=== PATIENT | male | born 1980 | race Hispanic/Latino ===

== ENCOUNTER 2021-04-12 22:56 | Emergency (ER) | payer BC, SELFPAY ==
[2021-04-12 22:57] VITALS: BP 125/83; PULSE 85; RESP 16; TEMP 36.6; O2SAT 85; BMI 33.2
[2021-04-12 23:01] VITALS: BP 125/83; PULSE 85; RESP 16; TEMP 36.6; O2SAT 94
--- NOTE | 2021-04-13 00:15 | RAD_ITS ---
STUDY: X-RAY CHEST REASON FOR EXAM: Male, 40 years old. sob TECHNIQUE: Single AP portable view of the chest. COMPARISON: None. FINDINGS: Ill-defined subpleural groundglass opacities are seen more prominent in the lung bases , may represent atypical pneumonia or viral pneumonia (COVID-19 ?). There is no demonstrated pleural abnormality. Normal size heart. Normal mediastinum and dougie. Normal visualized pulmonary arteries. Normal visualized aortic arch and descending thoracic aorta. Normal visualized thoracic spine. Normal visualized ribs, clavicles, and shoulders. There is no demonstrated abnormality of the visualized soft tissue structures of the upper abdomen. RAD/Chest 1 View (Portable) IMPRESSION: Ill-defined subpleural groundglass opacities are seen more prominent in the lung bases , may represent atypical pneumonia or viral pneumonia (COVID-19 ?). Electronically Signed: Erlin May MD at 1:09 EST Tel , Service support ,
--- NOTE | 2021-04-13 00:16 | EDS_ITS ---
HPI HPI - URI History of Present Illness Chief Complaint: Weakness Informant: patient Onset/Context/Timing Onset: Days Context: Gradual Onset Timing: Continuous Current Severity: Mild Maximum Severity: Mild Associated Symptoms Associated Symptoms: Positive for Nasal Congestion, Myalgias and Diarrhea Narrative Narrative: 40-year-old male no sniffing past medical history. Currently on no meds. Says he was exposed to people with Covid-like symptoms. Now for 10 days has had worsening symptoms. He is now short of breath. Denies any chest pain or hemoptysis. He has had diarrhea no vomiting. He has had alternating fever and chills and diffuse body aches. He has not been Covid tested as of yet. Prior similar symptoms: No Recent Illness/Hospitalization: No ROS ROS ED ROS Narrative Cough. Short of breath. Diarrhea. Fever and chills. Review of Systems ROS Unobtainable: Denies due to encephalopathy Constitutional Constitutional ED: Reports chills and fever(s) Eyes Eyes: Denies change in vision ENT ENT ED: Denies ear pain Cardiovascular Cardiovascular: Denies chest pain Respiratory/Chest Respiratory/Chest: Reports cough and dyspnea Gastrointestinal Gastrointestinal: Reports diarrhea; Denies abdominal pain, nausea or vomiting Genitourinary Genitourinary ED: Denies dysuria Musculoskeletal Musculoskeletal: Reports arthralgias and myalgias Integumentary Denies rash Neurologic Neurologic: Denies headache(s) Psychiatric Psychiatric: Denies depression Endocrine Endocrinology: Denies polyuria Hematologic/Lymphatic Hematologic/Lymphatic: Denies easy bruising Allergic/Immunologic Allergic/Immunologic ED: Denies urticaria PFSH PFSH Medical History no medical history no medical history Home Medications NK 04/12/21 [History Last Taken Unknown] dexamethasone [Decadron] 6 mg PO DAILY 10 Days #10 tab 04/13/21 [Rx Last Taken Unknown] Allergy/AdvReac Type Severity Reaction Status Date / Time No Known Allergies Allergy Verified 04/12/21 22:56 Social History Smoking Status: Never smoker EXAM Physical Exam Narrative Exam Narrative: Middle-age male no acute distress vital signs stable afebrile he has no septic or toxic he is hypoxic with a room air pulse ox of 85% on 3 L is 94%. H EENT exam moist weeks membranes. Neck nontender no JVD. No lymphadenopathy. Lungs clear to auscultation bilaterally. Heart regular rate and rhythm rate about 85 no murmur. Abdomen soft nontender normal bowel sounds no peritoneal signs. Moving all 4 extremities. Nontender. No edema. Back nontender. Skin unremarkable. Neurologic exam normal. Const Vital Signs: 04/12/21 22:57 04/12/21 23:01 04/12/21 23:22 Temperature 97.8 F 97.8 F Temperature Source Temporal Temporal Pulse Rate 85 85 Respiratory Rate 16 16 Respiratory Effort Short of Breath Respiratory Pattern Normal Blood Pressure 125/83 H 125/83 H Blood Pressure Mean 97 97 Pulse Ox 85 94 Oxygen Delivery Method Room Air Nasal Cannula Oxygen Flow Rate (L/min) 3 04/13/21 02:48 04/13/21 03:48 Temperature Temperature Source Pulse Rate 60 88 Respiratory Rate 16 22 H Respiratory Effort Respiratory Pattern Blood Pressure 128/70 H 90/65 Blood Pressure Mean 89 Pulse Ox 91 92 Oxygen Delivery Method Room Air Oxygen Flow Rate (L/min) Positive well nourished and well developed; Negative for cachectic or contractures General Appearance ED: well developed and NAD; Negative for cachectic, contractures, cyanotic, diaphoretic or pallor Nutritional Appearance: Negative for cachectic HEENT Reports moist mucous membranes normocephalic and atraumatic External Ear: external ears normal Eyes PERRL and EOMs intact bilaterally Neck no lymphadenopathy, supple, no meningeal signs and no JVD General: Negative for anterior neck swelling or lymphadenopathy Resp normal respiratory effort and clear to auscultation bilaterally Auscultation: Negative for rales, rhonchi or wheezes Cardio S1 normal heart sound, S2 normal heart sound and no murmurs Rate: regular rate Rhythm: regular rhythm GI non-tender, non-distended and no masses Inspection: Negative for abdominal distention Auscultation: normoactive bowel sounds Palpation: soft; Negative for tender or guarding Back/Spine no CVA tenderness and normal ROM General Back: Negative for CVA tenderness Cervical Spine: Negative for cervical spine tenderness Extremity normal to inspection and full ROM General Extremety ED: Negative for cyanosis or tenderness General Extremity: Negative for cyanosis Neuro oriented x3 Sensorium / Orientation: alert, oriented to person, oriented to place and oriented to time; Negative for orientation impaired, lethargic or stuporous Motor Exam: strength 5/5 throughout Psych mental status grossly normal Mood & Affect: Negative for depressed Skin General Skin Exam: Negative for jaundice or pallor Lesions: no lesions Rashes: no rashes MDM MDM MDM Narrative Medical decision making narrative: 40-year-old male no seen past medical history I clinically suspect he has Covid. Semitreated with IV fluids screening labs, chest x-ray and Covid test. Be given Decadron. And IV fluids. He is hypoxic he will need oxygen whether either admitted or discharged home with it. Repeat exam at 2:07 AM patient doing well and also at 3 AM. He was ambulated off oxygen and his O2 sats stayed 92% or better. He will not require home oxygen. He will be discharged home on Decadron daily. Lab Data Attestation: I reviewed the patient's lab results. Lab results narrative: CBC is normal at 7. Hemoglobin 16. Platelets 312. Electrolytes sodium 135 potassium 3.4 gap 8 normal BUN and creatinine 9 and 1 glucose 129. Patient's initial rapid Covid antigen test was negative. However he has had symptoms for 10 days and clinically I thought he had Covid so we did a PCR Covid test and it came back positive. Consistent with my clinical suspicion. Labs: Laboratory Results - last 24 hr 04/13/21 04/13/21 04/13/21 00:40 00:40 02:45 WBC 7.0 RBC 4.91 Hgb 16.1 Hct 45.4 MCV 92.5 MCH 32.8 H MCHC 35.5 RDW Std Deviation 41.9 RDW Coeff of Karol 12.1 Plt Count 312 MPV 9.6 Immature Gran % (Auto) 0.400 Neut % (Auto) 76.2 H Lymph % (Auto) 15.3 L [place] % (Auto) 8.0 Eos % (Auto) 0.0 Baso % (Auto) 0.1 Absolute Neuts (auto) 5.3 Absolute Lymphs (auto) 1.07 Nucleated RBC % 0 Sodium 135 L Potassium 3.4 L Chloride 95 L Carbon Dioxide 32.0 Anion Gap 8 BUN 9 Creatinine 1.06 Estim Creat Clear Calc 92.64 Est GFR (MDRD) Af Amer 99 Est GFR (MDRD) Non-Af 82 BUN/Creatinine Ratio 8.5 L Glucose 129 H Calcium 8.6 COVID-19 (WAQAR) Positive Radiography Diagnostic Testing: Clinical Impression(s) from Imaging Studies Chest X-Ray 04/13/21 00:15 IMPRESSION: Ill-defined subpleural groundglass opacities are seen more prominent in the lung bases , may represent atypical pneumonia or viral pneumonia (COVID-19 ?). Electronically Signed: Erlin May MD at 1:09 EST Tel , Service support , Chest x-ray, portable, single view interpreted by myself is consistent with bilateral infiltrates consistent with Covid pneumonitis. Normal cardiac silhouette. Discharge Plan Triage Chief Complaint: Weakness ED Provider: Dale Marie Dx/Rx/DC Orders Clinical Impression: Hypoxia, COVID-19 Instructions: Human Coronaviruses Prescriptions: New dexamethasone [Decadron] 6 mg tablet 6 mg PO DAILY 10 Days Qty: 10 RF: 0 No Action NK RF: 0 Primary Care Provider: Phi Domínguez Referrals: Phi Domínguez MD [Primary Care Provider] - 10-14 Days if not better Activity Restrictions/Additional Instructions: Plenty of fluids and rest. Motrin and Tylenol for body aches and fever Follow-up with your doctor if not improving over a week. Return if a lot worse. Decadron daily to decrease inflammation in your lungs. Disposition Disposition: Home, Self Care Discharge Date/Time: 04/13/21 03:49
[2021-04-13] MEDS: Ketorolac 30 MG/ML Syringe IV (00:35)
[2021-04-13] MEDS: dexAMETHasone 4 MG Tablet 6 MG PO (00:36)
[2021-04-13 00:49] LABS: Absolute Lymphocyte Count 1.07 X10^3/uL (0.83-4.51); Absolute Neutrophil Count 5.3 X10^3/uL (2.0-7.7); Basophil# 0.01 X10^3/uL; Basophil% 0.1 % (0-1); Hematocrit 45.4 % (40-54); Hemoglobin 16.1 g/dL (13.0-16.5); Lymphocyte # 1.07 X10^3/ul (0.83-4.51); Lymphocyte % 15.3 % (19-41); Mean Corp Hgb Conc 35.5 g/dL (32-36); Mean Corpuscular Hgb 32.8 pg (27.0-32.0); Mean Corpuscular Volume 92.5 fL (80-94); Mean Platelet Vol. 9.6 fl (6.2-12.0); Monocyte# 0.56 X10^3/uL; NRBC Flagged by Analyzer 0 % (0-5); Neutrophil # 5.32 X10^3/uL (2.7-7.7); Neutrophil % 76.2 % (47-70); Platelet Count 312 K/mm3 (150-450); RBC Distribution Width CV 12.1 % (11.6-14.6); RBC Distribution Width SD 41.9 fl (35.1-43.9); Red Blood Count 4.91 M/mm3 (4.6-6.2)
[2021-04-13 01:05] LABS: Anion Gap 8 (5-15); BUN 9 mg/dL (7-18); BUN/Creat Ratio 8.5 RATIO (10-20); Calcium,Total 8.6 mg/dL (8.5-10.1); Chloride 95 mmol/L (98-107); Creatinine, Serum 1.06 mg/dL (0.70-1.30); EST Glomerular Filtration Rate 82 mL/min (>60); Est Glom Filt Rate - Afr Amer 99 mL/min (>60); Estimated Creatinine Clearance 92.64 ml/min; Glucose 129 mg/dL (74-106); Potassium 3.4 mmol/L (3.5-5.1); Sodium Level 135 mmol/L (136-145)
[2021-04-13 02:48] VITALS: BP 128/70; PULSE 60; RESP 16; O2SAT 91
[2021-04-13 03:06] VITALS: O2SAT 90; O2SAT 92
[2021-04-13 03:44] LABS: Probe Check PASS; Specimen Processing Control PASS
[2021-04-13 03:48] VITALS: BP 90/65; PULSE 88; RESP 22; O2SAT 92
== END 2021-04-13 03:49 | disposition home or self-care (01) ==
PROVIDERS: Emergency Provider Emergency Medicine; PCP Family Medicine
DX: U07.1 COVID-19 (principal); R09.02 Hypoxemia
CPT/HCPCS: 71045; 80048; 85025; 87426; 87635; 96374; 99284; U0005; A4216; U0003

== ENCOUNTER 2021-04-13 22:14 | Inpatient (IN) | payer BC, SELFPAY ==
[2021-04-13 22:16] VITALS: BP 130/84; PULSE 64; RESP 18; TEMP 36.7; O2SAT 76; BMI 32.7
[2021-04-13 22:19] VITALS: BP 130/84; PULSE 65; PULSE 71; RESP 22; TEMP 36.7; O2SAT 90; O2SAT 91
--- NOTE | 2021-04-13 22:56 | EKG12_ITS ---
Test Reason : DYSRHYTHMIA Blood Pressure : / mmHG Vent. Rate : 072 BPM Atrial Rate : 072 BPM P-R Int : 154 ms QRS Dur : 090 ms QT Int : 454 ms P-R-T Axes : 044 -15 008 degrees QTc Int : 497 ms Normal sinus rhythm Prolonged QT Abnormal ECG Confirmed by CAYLA GAMBOA, EDE ([id number]), copy editor LIYA HOLGUIN ([id number]) on 04/15/2021 12:23:45 PM Referred By: ANNABELLA Confirmed By:EDE KULKARNI MD
--- NOTE | 2021-04-13 22:56 | CT_ITS ---
STUDY: CTA CHEST REASON FOR EXAM: Male, 40 years old. Hypoxia RADIATION DOSAGE (If Supplied By Facility): CTDIvol = ( 12.64 ) mGy, DLP = ( 497.40 ) mGycm TECHNIQUE: The examination was performed with the intravenous administration of IV 100mL Isovue-300. Post-processing of the angiographic images was performed, with multiplanar reformation and 3D reconstruction. Individualized dose optimization techniques were used for this CT. COMPARISON: April 13, 2021 FINDINGS: Normal enhancement of the main pulmonary artery and right and left pulmonary arteries. Normal enhancement of the bilateral peripheral pulmonary arteries. There is no demonstrated pulmonary embolism. Normal thoracic aorta and visualized great vessels. There is no demonstrated aortic dissection. Normal heart and pericardium. Normal mediastinum. Normal hilar regions. Normal visualized trachea and bronchi. There are multifocal groundglass opacities throughout the lungs with predominance in the lung periphery and lower lobes. Normal pleura. Normal chest wall structures. Normal osseous structures. Borderline splenomegaly. CT/CTA Chest W/WO Contrast IMPRESSION: Multifocal pneumonia, a pattern typical of Covid pneumonia. No pulmonary embolism. Electronically Signed: Vida Caldwell MD at 0:24 EST Tel , Service support ,
[2021-04-13] MEDS: dexAMETHasone 10 MG/ML Vial IV (23:19)
--- NOTE | 2021-04-13 23:20 | EDS_ITS ---
HPI History of Present Illness Chief Complaint: Shortness of Breath Narrative Narrative: Patient is a 40-year-old male who was seen yesterday secondary to cough and shortness of breath. He has known Covid and is at day 11. He states he is not vaccinated. Yesterday he was worked up and his pulse ox remained stable at rest and with exertion. He was started on Decadron and discharged home. Patient states that today the shortness of breath has worsened where he feels short of breath at rest and severely short of breath with any type of exertion and secondary to his worsening symptoms presents for evaluation. Patient denies any history of lung disorder or need for supplemental oxygen PFSH PFSH Home Medications dexamethasone [Decadron] 6 mg PO DAILY 04/14/21 [History Last Taken Unknown] Allergy/AdvReac Type Severity Reaction Status Date / Time No Known Allergies Allergy Verified 04/13/21 22:16 Social History Smoking Status: Never smoker ROS ROS ED Constitutional Constitutional ED: Denies chills or fever(s) ENT ENT ED: Reports rhinorrhea and sore throat Cardiovascular Cardiovascular: Reports chest pain Respiratory/Chest Respiratory/Chest: Reports cough, dyspnea and sputum Gastrointestinal Gastrointestinal: Denies abdominal pain, diarrhea, nausea or vomiting Genitourinary Genitourinary ED: Denies dysuria Musculoskeletal Musculoskeletal: Reports myalgias Integumentary Denies rash Neurologic Neurologic: Denies headache(s) Hematologic/Lymphatic Hematologic/Lymphatic: Denies easy bleeding or easy bruising EXAM Physical Exam Const Vital Signs: 04/13/21 22:16 04/13/21 22:19 04/13/21 22:59 Temperature 98.1 F 98.1 F Temperature Source Temporal Temporal Pulse Rate 64 71 Respiratory Rate 18 22 H Respiratory Effort Short of Breath Labored Respiratory Depth Shallow Respiratory Pattern Tachypnea Blood Pressure 130/84 H 130/84 H Blood Pressure Mean 99 99 Pulse Ox 76 91 Oxygen Delivery Method Room Air Nasal Cannula Oxygen Flow Rate (L/min) 6 04/13/21 23:53 04/14/21 00:11 Temperature 97.7 F L Temperature Source Temporal Pulse Rate 67 77 Respiratory Rate 23 H 20 H Respiratory Effort Respiratory Depth Respiratory Pattern Blood Pressure 128/77 H Blood Pressure Mean 94 Pulse Ox 94 92 Oxygen Delivery Method High Flow High Flow Oxygen Flow Rate (L/min) 10 10 Positive well nourished and well developed General Appearance ED: well developed HEENT Reports moist mucous membranes HEENT Narrative: No tongue or lip swelling no oral lesions no airway edema or compromise Eyes PERRL and EOMs intact bilaterally Neck supple and no JVD Neck Narrative: Positive anterior cervical lymphadenopathy Resp Resp Narrative: Breath sounds are diminished throughout with diffuse rhonchi in the bilateral bases Cardio regular rate and regular rhythm GI normal to inspection, nondistended, normoactive bowel sounds, non-tender, non- distended and no masses GI Narrative: No voluntary guarding or rigidity no pulsatile mass Auscultation: normoactive bowel sounds Palpation: soft Extremity normal to inspection Extremity Narrative: No asymmetric edema no pitting edema negative Homans' sign bilaterally Neuro oriented x3 and CN's II-XII intact bilaterally Sensorium / Orientation: alert Motor Exam: strength 5/5 throughout Psych mental status grossly normal Skin no rashes or lesions noted MDM MDM MDM Narrative Medical decision making narrative: Patient presented to the ER satting 75% on room air when he walked back from the waiting room. This is consistent with his report of shortness of breath. He is 11 days into his Covid and there is concern that this shortness of breath could be related to Covid pneumonia versus pulmonary embolus so a basic work-up with CTA was added. Blood work revealed no clinically significant findings and CTA revealed no PE but did show Covid pneumonia. The patient pulse ox dropped while on 6 L nasal cannula so therefore was transitioned to 10 L of high flow nasal cannula oxygen. While on this his pulse ox did improve to 92 to 93%. At this time he is requiring a high value of oxygen to keep his pulse ox greater than 90% and as he has no need for supplemental oxygen he does classify as acute respiratory failure with hypoxia. Therefore he will be admitted to the hospital for continued oxygen therapy and to monitor his status for secondary to his Covid pneumonia. Lab Data Attestation: I reviewed the patient's lab results. Labs: Laboratory Results - last 24 hr 04/13/21 04/13/21 04/13/21 22:54 22:54 22:54 WBC 7.0 RBC 4.94 Hgb 16.3 Hct 45.3 MCV 91.7 MCH 33.0 H MCHC 36.0 RDW Std Deviation 40.5 RDW Coeff of Karol 12.0 Plt Count 377 MPV 9.8 Immature Gran % (Auto) 1.000 H Neut % (Auto) 78.8 H Lymph % (Auto) 9.6 L [place] % (Auto) 10.5 H Eos % (Auto) 0.0 Baso % (Auto) 0.1 Absolute Neuts (auto) 5.5 Absolute Lymphs (auto) 0.67 L Nucleated RBC % 0 Differential Comment SCANNED Atypical Lymphocytes RARE PT 12.4 INR 1.0 APTT 36.6 H Sodium 136 Potassium 3.5 Chloride 98 Carbon Dioxide 31.0 Anion Gap 7 BUN 12 Creatinine 0.79 Estim Creat Clear Calc 124.30 Est GFR (MDRD) Af Amer 139 Est GFR (MDRD) Non-Af 115 BUN/Creatinine Ratio 15.2 Glucose 148 H Calcium 8.9 Magnesium 2.6 Troponin I High Sens 5 Radiography Diagnostic Testing: Clinical Impression(s) from Imaging Studies Chest CTA 04/13/21 22:56 IMPRESSION: Multifocal pneumonia, a pattern typical of Covid pneumonia. No pulmonary embolism. Electronically Signed: Vida Caldwell MD at 0:24 EST Tel , Service support , Critical Care Time Critical Care Time: Yes Critical care time (excluding procedures): - (Please note critical care time of 33 minutes) Discharge Plan Triage Chief Complaint: Shortness of Breath ED Provider: Tang Sauceda Dx/Rx/DC Orders Clinical Impression: Acute respiratory failure with hypoxia, Pneumonia due to 2019 novel coronavirus Primary Care Provider: Phi Domínguez Disposition Disposition: Acute Care Hospital [facility]
[2021-04-13 23:21] LABS: Prothrombin Time (Protime)PT. 12.4 SECONDS (11.7-14.9)
[2021-04-13 23:22] LABS: Partial Thromboplast Time 36.6 Seconds (24.1-36.2)
[2021-04-13 23:29] LABS: Absolute Lymphocyte Count 0.67 X10^3/uL (0.83-4.51); Absolute Neutrophil Count 5.5 X10^3/uL (2.0-7.7); Basophil# 0.01 X10^3/uL; Basophil% 0.1 % (0-1); Hematocrit 45.3 % (40-54); Hemoglobin 16.3 g/dL (13.0-16.5); Lymphocyte # 0.67 X10^3/ul (0.83-4.51); Lymphocyte % 9.6 % (19-41); Mean Corpuscular Volume 91.7 fL (80-94); Mean Platelet Vol. 9.8 fl (6.2-12.0); Monocyte# 0.73 X10^3/uL; Monocyte% 10.5 % (0-10); NRBC Flagged by Analyzer 0 % (0-5); Neutrophil # 5.49 X10^3/uL (2.7-7.7); Neutrophil % 78.8 % (47-70); POSITIVE MORPHOLOGY YES; Platelet Count 377 K/mm3 (150-450); RBC Distribution Width SD 40.5 fl (35.1-43.9); Red Blood Count 4.94 M/mm3 (4.6-6.2)
[2021-04-13 23:32] LABS: Anion Gap 7 (5-15); BUN 12 mg/dL (7-18); BUN/Creat Ratio 15.2 RATIO (10-20); Calcium,Total 8.9 mg/dL (8.5-10.1); Chloride 98 mmol/L (98-107); Creatinine, Serum 0.79 mg/dL (0.70-1.30); EST Glomerular Filtration Rate 115 mL/min (>60); Est Glom Filt Rate - Afr Amer 139 mL/min (>60); Glucose 148 mg/dL (74-106); Magnesium 2.6 mg/dL (1.6-2.6); Potassium 3.5 mmol/L (3.5-5.1); Sodium Level 136 mmol/L (136-145); Troponin-I HS 5 pg/mL (3.0-78.0)
[2021-04-13 23:39] LABS: Differential Indicated SCAN CRITERIA MET
[2021-04-13 23:53] VITALS: BP 128/77; PULSE 67; RESP 23; TEMP 36.5; O2SAT 94
[2021-04-13 23:57] LABS: Atypical Lymphocyte RARE %; Differential Comment SCANNED
[2021-04-14] VITALS (14 sets, daily range): BP systolic 103–133; BP diastolic 52–97; PULSE 50–77; RESP 14–22; TEMP 36–36.8; O2SAT 89–97; BMI 31.8
--- NOTE | 2021-04-14 00:56 | PCM.HP.STD ---
HPI - General General Date of Admission: 04/14/21 Date of Service: 04/14/21 Chief Complaint: Shortness of breath HPI Narrative WARREN MATIAS, is a 40 M who presents at the emergency department with progressively worsening shortness of breath. Patient reports a Covid-like symptoms started 11-day before presentation. On the 10th day of his Covid-like symptoms he was at the emergency department and was prescribed a Decadron. He returned the next day with progressively worsening symptoms. He reported that previously had fever and chills which has now resolved. He reports a wet cough. He reports fatigue and weakness. Reportedly when he woke into the emergency department his oxygen saturation on room air was 75%. He was placed on 6 L high flow oxygen but had to be transitioned to 10 L high flow oxygen in ED and even with that his oxygen saturation was between 90 to 92%. [facility] Medical History no medical history no medical history Home Medications dexamethasone [Decadron] 6 mg PO DAILY 04/14/21 [History Last Taken Unknown] Allergy/AdvReac Type Severity Reaction Status Date / Time No Known Allergies Allergy Verified 04/13/21 22:16 Family History adopted adopted Surgical History H/O knee surgery Social History Smoking Status: Never smoker ROS ROS Narrative Constitutional: Denies fever, chills, fatigue, anorexia and change in weight Eyes: Denies blurry vision, change in eye color, change in vision, discharge from eye(s), double vision, erythema, eye pain, loss of vision or other HEENT: Denies abnormal hearing, dysphagia, ear pain, epistaxis, headache(s), hearing loss, nasal congestion, nasal discharge, post nasal drip, sinus pressure, sore throat or other Cardiovascular: Denies chest pain or palpitations. Denies dyspnea on exertion, orthopnea and paroxysmal nocturnal dyspnea Respiratory/Chest: Reports wet cough. Reports SOB. Gastrointestinal: Reports abdominal muscle pain that he attributes to cough, coffee ground emesis, constipation, diarrhea, dyspepsia, hematemesis, hematochezia, loose stools, melena, nausea, vomiting or other Genitourinary: Denies burning urination, difficulty urinating, dysuria, hematuria, nocturia, urinary frequency, urinary hesitancy, urinary incontinence, urinary urgency or other Musculoskeletal: Denies arthralgias, back pain, joint pain, joint stiffness, joint swelling, myalgias, neck pain or other Neurologic: Denies abnormal gait, abnormal speech, confusion, disequilibrium, dizziness, focal weakness, headache(s), numbness, paresthesias, seizure-like activity, seizures, syncope, tingling, tremor(s) or other Psychiatric: Denies anxiety, depression, homicidal ideation, suicidal ideation or other Endocrinology: Denies change in body appearance, cold intolerance, excessive sweating, heat intolerance, polydipsia, polyuria or other Hematologic/Lymphatic: Denies anemia, easy bleeding, easy bruising, lymphadenopathy or other Integumentary: Denies rashes Allergic/Immunologic: Denies rhinitis, hives, eczema, asthma or other Vital Signs Vital Signs Vital Signs: 04/13/21 22:16 04/13/21 22:19 04/13/21 22:59 Temperature 98.1 F 98.1 F Temperature Source Temporal Temporal Pulse Rate 64 71 Respiratory Rate 18 22 H Respiratory Effort Short of Breath Labored Respiratory Depth Shallow Respiratory Pattern Tachypnea Blood Pressure 130/84 H 130/84 H Blood Pressure Mean 99 99 Pulse Ox 76 91 Oxygen Delivery Method Room Air Nasal Cannula Oxygen Flow Rate (L/min) 6 04/13/21 23:53 04/14/21 00:11 Temperature 97.7 F L Temperature Source Temporal Pulse Rate 67 77 Respiratory Rate 23 H 20 H Respiratory Effort Respiratory Depth Respiratory Pattern Blood Pressure 128/77 H Blood Pressure Mean 94 Pulse Ox 94 92 Oxygen Delivery Method High Flow High Flow Oxygen Flow Rate (L/min) 10 10 Weight Weight: 102.058 kg Body Mass Index (BMI) 32.7 Physical Exam Narrative Physical exam: General: Well-nourished, well-developed. Head: Normocephalic, atraumatic, no tenderness Eyes: PERRLA, EOMI ENT, no trauma, moist mucous membranes, no rhinorrhea Neck: Nontender, full range of motion, no spinal tenderness, deformities, step-off CVS: Regular rate and rhythm. S1-S2 present. No murmur, gallop or rub. Respiratory : Rales bilaterally, chest wall nontender, no wheezing Abdomen: Soft, nontender, nondistended, normal bowel sounds, no masses : Deferred Back: Nontender, no CVA tenderness, no midline spinal tenderness, deformities, step-offs Extremities: Nontender full range of motion, no trauma Skin: Normal color, no trauma, abrasions Neuro: Alert, oriented, cranial nerves II through XII grossly intact. Psychiatry: Normal mood. Normal affect. Not depressed. Not anxious. Results Lab / Micro Data Result Diagrams: 04/13/21 22:54 04/13/21 22:54 Labs: Laboratory Results - last 24 hr 04/13/21 22:54: WBC 7.0, RBC 4.94, Hgb 16.3, Hct 45.3, MCV 91.7, MCH 33.0 H, MCHC 36.0, RDW Std Deviation 40.5, RDW Coeff of Karol 12.0, Plt Count 377, MPV 9.8, Immature Gran % (Auto) 1.000 H, Neut % (Auto) 78.8 H, Lymph % (Auto) 9.6 L, [place] % (Auto) 10.5 H, Eos % (Auto) 0.0, Baso % (Auto) 0.1, Absolute Neuts (auto) 5.5, Absolute Lymphs (auto) 0.67 L, Nucleated RBC % 0, Differential Comment SCANNED, Atypical Lymphocytes RARE 04/13/21 22:54: PT 12.4, INR 1.0, APTT 36.6 H 04/13/21 22:54: Sodium 136, Potassium 3.5, Chloride 98, Carbon Dioxide 31.0, Anion Gap 7, BUN 12, Creatinine 0.79, Estim Creat Clear Calc 124.30, Est GFR (MDRD) Af Amer 139, Est GFR (MDRD) Non-Af 115, BUN/Creatinine Ratio 15.2, Glucose 148 H, Calcium 8.9, Magnesium 2.6, Troponin I High Sens 5 Radiology Impression Chest CTA 04/13/21 22:56 IMPRESSION: Multifocal pneumonia, a pattern typical of Covid pneumonia. No pulmonary embolism. Electronically Signed: Vida Caldwell MD at 0:24 EST Tel , Service support , Assessment & Plan Assessment/Plan (1) Acute respiratory failure with hypoxia: (2) Pneumonia due to 2019 novel coronavirus: PLAN: Acute hypoxemic respiratory failure secondary to SARS- COV 2 documented oxygen saturation was 76% on room air. Continue high flow oxygen stat at the emergency department. Review of record showed a positive COVID-19 test on 04/13/2021 Actual chest x-ray image and CTA chest was independently interpreted. I agree with radiologist interpretation of multifocal pneumonia, Covid patent. No pulmonary embolism or acute dissection. Emergent department labs reviewed showed normal white counts but with bandemia of 1%; neutrophilia; lymphopenia and monocytosis. Procalcitonin was ordered. Decadron ordered Tylenol for fever Mucinex ordered Infectious disease consult. Elevated blood pressure diagnosed hypertension Noted to have elevated blood pressure. Trend blood pressures DVT prophylaxis Subcutaneous Lovenox ordered. Charges/Coding Visit Charges Inpatient E&M: 19505 Init Hosp L3
[2021-04-14] MEDS: guaiFENesin 1,200 MG Tablet 1200 MG PO ×3 (02:36→20:34)
[2021-04-14 02:40] LABS: Procalcitonin 0.12 ng/mL (0.00-0.09)
[2021-04-14 06:56] LABS: Absolute Lymphocyte Count 0.71 X10^3/uL (0.83-4.51); Absolute Neutrophil Count 6.5 X10^3/uL (2.0-7.7); Basophil# 0.02 X10^3/uL; Basophil% 0.3 % (0-1); Hematocrit 43.8 % (40-54); Hemoglobin 15.3 g/dL (13.0-16.5); Lymphocyte # 0.71 X10^3/ul (0.83-4.51); Mean Corp Hgb Conc 34.9 g/dL (32-36); Mean Corpuscular Hgb 32.5 pg (27.0-32.0); Mean Platelet Vol. 9.8 fl (6.2-12.0); Monocyte# 0.68 X10^3/uL; Monocyte% 8.6 % (0-10); NRBC Flagged by Analyzer 0 % (0-5); Neutrophil # 6.48 X10^3/uL (2.7-7.7); Neutrophil % 81.8 % (47-70); Platelet Count 417 K/mm3 (150-450); RBC Distribution Width CV 11.9 % (11.6-14.6); RBC Distribution Width SD 41.1 fl (35.1-43.9); Red Blood Count 4.71 M/mm3 (4.6-6.2); White Blood Count 7.9 K/mm3 (4.4-11.0)
[2021-04-14 07:38] LABS: ALB/GLOB Ratio 0.6 RATIO (0.9-2.4); AST(SGOT) 117 U/L (15-37); Alanine Aminotransfer ALT/SGPT 82 U/L (16-61); Albumin, Serum 2.7 g/dL (3.2-5.0); Alkaline Phosphatase 74 U/L (45-117); Anion Gap 11 (5-15); BUN 12 mg/dL (7-18); BUN/Creat Ratio 15.5 RATIO (10-20); Calcium,Total 8.6 mg/dL (8.5-10.1); Chloride 100 mmol/L (98-107); Creatinine, Serum 0.78 mg/dL (0.70-1.30); EST Glomerular Filtration Rate 118 mL/min (>60); Est Glom Filt Rate - Afr Amer 142 mL/min (>60); Estimated Creatinine Clearance 125.89 ml/min; Globulin 4.3 g/dL (2.2-4.2); Glucose 150 mg/dL (74-106); Potassium 3.4 mmol/L (3.5-5.1); Sodium Level 137 mmol/L (136-145)
[2021-04-14] MEDS: dexAMETHasone 4 MG Tablet 6 MG PO (08:46)
[2021-04-14] MEDS: Enoxaparin 30 MG/0.3 ML Syringe SC ×2 (08:47→20:32)
--- NOTE | 2021-04-14 11:34 | CASEMGMT ---
Pt states to call about preference for DME company and this KIKI MEDINA placed call to and she states no preference for DME company. states pt is not vaccinated. states she is COVID positive but speaks in full sentences and states no concerns at this time. [place] [employer]
--- NOTE | 2021-04-14 12:17 | CASEMGMT ---
RN CM Assessment Introduced role of RN CM to patient.? Patient is alert, oriented and able?to participate in RN CM Assessment. ?Care providers, pharmacy, and demographics verified. Admit Dx: Acute Hypoxemic Resp Failure s/t Covid Re-Admit: No Barriers/Issues: None. Patient -Covid positive but well and can care for their 3 children. 2 of the children were ill but not tested. Patient works from home. States was tested for Covid here at [facility] PCP: Phi Domínguez Specialists: None Preferred Pharmacy: [facility] Insurance: [employer] Benefit:?Yes LNOK: Carmen Salas LW/HPOA: None, declines offered information or completion on this admission. Informed can return as an outpatient to complete with social service dept at a later time if choses. Living Arrangements:?Lives with and 3 children, couple steps to enter home. Can use separate bathroom and stay in separate room from children. ADL?s: Independent with ambulation and ADLs Transportation: Both patient and drive, likely will transport upon DC. DME: None. Does have a thermometer. HHC: None SNF: None Goal: Home and not sure of preference for DME should home oxygen be needed and would need to s/w his . All list for DME, HH, SNF left at bedside. called by PERNELL Goins states no preference of DME company and one that is local. In Network DME: [facility], Ale, [facility], Lisa, [employer] [employer]. DC PLAN: Home with possible Home O2-no preference on agency. PERNELL Miranda
[2021-04-14 13:08] LABS: CRP 9.31 mg/L (0.0-3.0)
[2021-04-14 13:19] LABS: BNP,B-Type NATRIURETIC PEPTIDE 17.2 pg/mL (0-100)
[2021-04-14 13:53] LABS: D-Dimer Quantitative (DVT/PE) 0.37 FEU/ug/m (0.27-0.49)
--- NOTE | 2021-04-14 14:41 | PN.HOSP_ITS ---
Subjective Subjective placed on airvo due to hypoxia. Objective Data Objective Data Vital Signs: Vital Signs Temp Pulse Resp BP Pulse Ox 36.0 C L 58 L 18 112/64 97 04/14/21 11:28 04/14/21 11:28 04/14/21 11:28 04/14/21 11:28 04/14/21 11:28 Oxygen Flow Rate (L/min) 50 Oxygen Delivery Method Airvo Weight: 97.9 kg Body Mass Index (BMI) 31.8 Intake & Output: Intake and Output for Last 24 Hours 04/12/21 04/13/21 04/14/21 23:59 23:59 23:59 Intake Total 240 / 240 Balance 240 / 240 Lab / Micro Data Result Diagrams: 04/14/21 06:16 04/14/21 06:16 Labs: Laboratory Results - last 24 hr 04/13/21 22:54: WBC 7.0, RBC 4.94, Hgb 16.3, Hct 45.3, MCV 91.7, MCH 33.0 H, MCHC 36.0, RDW Std Deviation 40.5, RDW Coeff of Karol 12.0, Plt Count 377, MPV 9.8, Immature Gran % (Auto) 1.000 H, Neut % (Auto) 78.8 H, Lymph % (Auto) 9.6 L, [place] % (Auto) 10.5 H, Eos % (Auto) 0.0, Baso % (Auto) 0.1, Absolute Neuts (auto) 5.5, Absolute Lymphs (auto) 0.67 L, Nucleated RBC % 0, Differential Comment SCANNED, Atypical Lymphocytes RARE 04/13/21 22:54: PT 12.4, INR 1.0, APTT 36.6 H 04/13/21 22:54: Sodium 136, Potassium 3.5, Chloride 98, Carbon Dioxide 31.0, Anion Gap 7, BUN 12, Creatinine 0.79, Estim Creat Clear Calc 124.30, Est GFR (MDRD) Af Amer 139, Est GFR (MDRD) Non-Af 115, BUN/Creatinine Ratio 15.2, Gluc ose 148 H, Calcium 8.9, Magnesium 2.6, Troponin I High Sens 5 04/13/21 22:54: Procalcitonin 0.12 H 04/14/21 06:16: WBC 7.9, RBC 4.71, Hgb 15.3, Hct 43.8, MCV 93.0, MCH 32.5 H, MCHC 34.9, RDW Std Deviation 41.1, RDW Coeff of Karol 11.9, Plt Count 417, MPV 9.8, Immature Gran % (Auto) 0.300, Neut % (Auto) 81.8 H, Lymph % (Auto) 9.0 L, Clay % (Auto) 8.6, Eos % (Auto) 0.0, Baso % (Auto) 0.3, Absolute Neuts (auto) 6.5, Absolute Lymphs (auto) 0.71 L, Nucleated RBC % 0 04/14/21 06:16: Sodium 137, Potassium 3.4 L, Chloride 100, Carbon Dioxide 26.0, Anion Gap 11, BUN 12, Creatinine 0.78, Estim Creat Clear Calc 125.89, Est GFR (MDRD) Af Amer 142, Est GFR (MDRD) Non-Af 118, BUN/Creatinine Ratio 15.5, Glucose 150 H, Calcium 8.6, Total Bilirubin 0.60, AST 117 H, ALT 82 H, Alkaline Phosphatase 74, Total Protein 7.0, Albumin 2.7 L, Globulin 4.3 H, Albumin/Globu michael Ratio 0.6 L 04/14/21 06:16: C-React Prot Ext Range 9.31 H 04/14/21 06:16: B-Natriuretic Peptide 17.2 04/14/21 13:09: D-Dimer Quant (PE/DVT) 0.37 Radiography Diagnostic Testing: Radiology Impression Chest CTA 04/13/21 22:56 IMPRESSION: Multifocal pneumonia, a pattern typical of Covid pneumonia. No pulmonary embolism. Electronically Signed: Vida Caldwell MD at 0:24 EST Tel , Service support , Physical Exam Const alert and no apparent distress Resp normal respiratory effort and no retractions Resp Narrative: coarse breath sounds. Cardio regular rate, regular rhythm, S1 normal heart sound and S2 normal heart sound GI normal to inspection, nondistended, normoactive bowel sounds, soft to palpation, non-tender and non-distended Assessment & Plan Assessment/Plan (1) Acute respiratory failure with hypoxia: (2) Pneumonia due to 2019 novel coronavirus: PLAN: 1. acute hypoxic respiratory failure 2/2 covid 19 pneumonia worsening overnight and this AM. Now on Airvo could continue to worsen encouraged IS and flutter valve. 2. Acute COVID 19 pneumonia unvaccinated on set 04/04. ID consult to see if candidate for baricitinib too late for remdesivir continue dexamethasone. 3. VTE prophylaxis: LMWH. Charges/Coding Visit Charges Inpatient E&M: 37373 Subs Hosp L2
--- NOTE | 2021-04-14 15:19 | NURSING ---
, Carmen, called in for update. update provided. Carmen states that Dr bruce reached out to her to see if they wanted to do barcitinib or not. Carmen states that she would like to go forward with it. Notified Dr Salgado.
--- NOTE | 2021-04-14 18:59 | CON.PCM.ID_ITS ---
Assessment & Plan Assessment/Plan (1) COVID-19: PLAN: Sx started 04/03. Unvaccinated. Isolate until 04/22. Recommend vaccine after discharge but he is skeptical. On dex. Reviewed EUA and risks/benefits baricitinib with him and his . They want to think about; emphasized the short window of opportunity for its use. Will check basic labs. Will follow, thank you (2) Acute respiratory failure with hypoxia: HPI Consult Data Date of Consult: 04/14/21 HPI Narrative HPI Narrative: WARREN MAITAS, is a 40 M who presented 04/14 with sx since 04/03. C/o headache, fatigue, fever, chills, loss of appetite, n/v/d, change in taste and smell. also sick, kids at home are ok. Unvaccinated. Came to ED, admitted on dex. Now worsening O2, on airvo. Feeling better. Full ROS performed and neg except as noted above. PFSH Medical History no medical history Home Medications dexamethasone [Decadron] 6 mg PO DAILY 04/14/21 [History Last Taken Unknown] Allergy/AdvReac Type Severity Reaction Status Date / Time No Known Allergies Allergy Verified 04/13/21 22:16 Family History adopted Surgical History H/O knee surgery Social History Smoking Status: Never smoker Physical Exam Const alert, oriented x3 and no apparent distress General Appearance: cooperative Exam Limitations: no limitations HEENT normocephalic and head/scalp atraumatic Eyes PERRL and EOMs intact bilaterally Neck supple and No nodes Resp Auscultation: diminished lung sounds Cardio regular rate and regular rhythm GI normal to inspection, nondistended, normoactive bowel sounds Extremity no clubbing, cyanosis or edema Skin no rashes or lesions noted Neuro CN's II-XII intact bilaterally Medical Records Data Medical Nutrition Assessment Dietitian: Malnutrition Criteria Met Start: 04/14/21 15:12 Freq: Status: Active Protocol: Document 04/14/21 15:12 RMA (Rec: 04/14/21 15:12 RMA [id number]) Nutrition Malnutrition Evidence of Malnutrition Exists Yes Malnutrition (severe): Acute Illness/Injury Evidenced By Suboptimal Energy Intake ( Severe),Weight Loss (Severe) Clinical Problem Acute Disease or Injury Related Malnutrition Etiology Severe protein-calorie malnutrition in the context of acute illness related to inadequate oral intake and altered GI function/diarrhea Signs/Symptoms as evidenced by wt loss~4% x 10-12 days and PO meeting less than 50% estimated nutrition needs x 10 days Status Active Problem Recommendation Dietitian Recommendations/Changes Regular/no added salt diet Will add strawberry milkshake with whole milk BID at lunch and dinner. Lab / Micro Data Result Diagrams: 04/14/21 06:16 04/14/21 06:16 Labs: Laboratory Results - last 24 hr 04/13/21 22:54: WBC 7.0, RBC 4.94, Hgb 16.3, Hct 45.3, MCV 91.7, MCH 33.0 H, MCHC 36.0, RDW Std Deviation 40.5, RDW Coeff of Karol 12.0, Plt Count 377, MPV 9.8, Immature Gran % (Auto) 1.000 H, Neut % (Auto) 78.8 H, Lymph % (Auto) 9.6 L, [place] % (Auto) 10.5 H, Eos % (Auto) 0.0, Baso % (Auto) 0.1, Absolute Neuts (auto) 5.5, Absolute Lymphs (auto) 0.67 L, Nucleated RBC % 0, Differential Comment SCANNED, Atypical Lymphocytes RARE 04/13/21 22:54: PT 12.4, INR 1.0, APTT 36.6 H 04/13/21 22:54: Sodium 136, Potassium 3.5, Chloride 98, Carbon Dioxide 31.0, Anion Gap 7, BUN 12, Creatinine 0.79, Estim Creat Clear Calc 124.30, Est GFR (MDRD) Af Amer 139, Est GFR (MDRD) Non-Af 115, BUN/Creatinine Ratio 15.2, Glucose 148 H, Calcium 8.9, Magnesium 2.6, Troponin I High Sens 5 04/13/21 22:54: Procalcitonin 0.12 H 04/14/21 06:16: WBC 7.9, RBC 4.71, Hgb 15.3, Hct 43.8, MCV 93.0, MCH 32.5 H, MCHC 34.9, RDW Std Deviation 41.1, RDW Coeff of Karol 11.9, Plt Count 417, MPV 9.8, Immature Gran % (Auto) 0.300, Neut % (Auto) 81.8 H, Lymph % (Auto) 9.0 L, [place] % (Auto) 8.6, Eos % (Auto) 0.0, Baso % (Auto) 0.3, Absolute Neuts (auto) 6.5, Absolute Lymphs (auto) 0.71 L, Nucleated RBC % 0 04/14/21 06:16: Sodium 137, Potassium 3.4 L, Chloride 100, Carbon Dioxide 26.0, Anion Gap 11, BUN 12, Creatinine 0.78, Estim Creat Clear Calc 125.89, Est GFR (MDRD) Af Amer 142, Est GFR (MDRD) Non-Af 118, BUN/Creatinine Ratio 15.5, Glucose 150 H, Calcium 8.6, Total Bilirubin 0.60, AST 117 H, ALT 82 H, Alkaline Phosphatase 74, Total Protein 7.0, Albumin 2.7 L, Globulin 4.3 H, Albumin/Globulin Ratio 0.6 L 04/14/21 06:16: C-React Prot Ext Range 9.31 H 04/14/21 06:16: B-Natriuretic Peptide 17.2 04/14/21 13:09: D-Dimer Quant (PE/DVT) 0.37 Radiology Impression Chest CTA 04/13/21 22:56 IMPRESSION: Multifocal pneumonia, a pattern typical of Covid pneumonia. No pulmonary embolism. Electronically Signed: Vida Caldwell MD at 0:24 EST Tel , Service support ,
[2021-04-15] VITALS (15 sets, daily range): BP systolic 99–123; BP diastolic 61–80; PULSE 46–65; RESP 18–20; TEMP 36–36.4; O2SAT 92–96
[2021-04-15 07:16] LABS: ALB/GLOB Ratio 0.7 RATIO (0.9-2.4); AST(SGOT) 224 U/L (15-37); Alanine Aminotransfer ALT/SGPT 215 U/L (16-61); Albumin, Serum 2.7 g/dL (3.2-5.0); Alkaline Phosphatase 86 U/L (45-117); Anion Gap 5 (5-15); BUN 17 mg/dL (7-18); BUN/Creat Ratio 21.3 RATIO (10-20); Calcium,Total 8.6 mg/dL (8.5-10.1); Chloride 102 mmol/L (98-107); EST Glomerular Filtration Rate 114 mL/min (>60); Est Glom Filt Rate - Afr Amer 138 mL/min (>60); Estimated Creatinine Clearance 122.74 ml/min; Globulin 4.1 g/dL (2.2-4.2); Glucose 119 mg/dL (74-106); Potassium 3.6 mmol/L (3.5-5.1); Protein, Total 6.8 g/dL (6.4-8.2); Sodium Level 138 mmol/L (136-145)
[2021-04-15] MEDS: dexAMETHasone 4 MG Tablet 6 MG PO (08:54)
[2021-04-15] MEDS: guaiFENesin 1,200 MG Tablet 1200 MG PO ×2 (08:54→21:27)
[2021-04-15] MEDS: Enoxaparin 30 MG/0.3 ML Syringe SC ×2 (08:55→21:27)
--- NOTE | 2021-04-15 10:53 | PCM.PN.ID ---
Physical Exam Narrative Feeling about the same, but now coughing up a lot of yellow sputum. No fever, no n/v/d. Const alert and no apparent distress General Appearance: cooperative Resp Auscultation: diminished lung sounds Cardio regular rate and regular rhythm GI normal to inspection, nondistended, normoactive bowel sounds Skin no rashes or lesions noted ID ID: Route of nutrition/ use of supplements: [] Nutritional Intake: [] IV Site: [] Taveras Catheter: [] Assessment & Plan Assessment/Plan (1) COVID-19: PLAN: Sx started 04/03. Unvaccinated. Isolate until 04/22. Recommend vaccine after discharge but he is skeptical. On dex. O2 stable today on airvo. With rising ALT, will not do baricitinib. Producing yellow sputum, will check sputum cx and start ceftriaxone empirically. Will follow (2) Acute respiratory failure with hypoxia:
--- NOTE | 2021-04-15 17:08 | PCM.PN.HOSP ---
Subjective Subjective Feeling better and oxygen has been able to be weaned down. Feeling better. Objective Data Objective Data Vital Signs: Vital Signs Temp Pulse Resp BP Pulse Ox 36.2 C L 56 L 18 115/66 95 04/15/21 16:59 04/15/21 16:59 04/15/21 16:59 04/15/21 16:59 04/15/21 16:59 Oxygen Flow Rate (L/min) 4 Oxygen Delivery Method Nasal Cannula Weight: 97.9 kg Body Mass Index (BMI) 31.8 Intake & Output: Intake and Output for Last 24 Hours 04/13/21 04/14/21 04/15/21 23:59 23:59 23:59 Intake Total 1320 / 1320 770 / 770 Output Total 650 / 650 550 / 550 Balance 670 / 670 220 / 220 Medical Nutrition Assessment Dietitian: Malnutrition Criteria Met Start: 04/14/21 15:12 Freq: Status: Active Protocol: Document 04/14/21 15:12 RMA (Rec: 04/14/21 15:12 RMA [id number]) Nutrition Malnutrition Evidence of Malnutrition Exists Yes Malnutrition (severe): Acute Illness/Injury Evidenced By Suboptimal Energy Intake ( Severe),Weight Loss (Severe) Clinical Problem Acute Disease or Injury Related Malnutrition Etiology Severe protein-calorie malnutrition in the context of acute illness related to inadequate oral intake and altered GI function/diarrhea Signs/Symptoms as evidenced by wt loss~4% x 10-12 days and PO meeting less than 50% estimated nutrition needs x 10 days Status Active Problem Recommendation Dietitian Recommendations/Changes Regular/no added salt diet Will add strawberry milkshake with whole milk BID at lunch and dinner. Lab / Micro Data Result Diagrams: 04/14/21 06:16 04/15/21 06:34 Labs: Laboratory Results - last 24 hr 04/15/21 06:34: Sodium 138, Potassium 3.6, Chloride 102, Carbon Dioxide 31.0, Anion Gap 5, BUN 17, Creatinine 0.80, Estim Creat Clear Calc 122.74, Est GFR (MDRD) Af Amer 138, Est GFR (MDRD) Non-Af 114, BUN/Creatinine Ratio 21.3 H, Glucose 119 H, Calcium 8.6, Total Bilirubin 0.60, AST 224 H, ALT 215 H, Alkaline Phosphatase 86, Total Protein 6.8, Albumin 2.7 L, Globulin 4.1, Albumin/Globulin Ratio 0.7 L Micro: Microbiology 04/15/21 13:00 Sputum, Expectorated/Coughed Gram Stain - Final Physical Exam Const alert and no apparent distress HEENT head/scalp atraumatic and moist oral mucous membranes Head and Scalp: normocephalic Eyes PERRL Resp normal respiratory effort, no retractions, no use of accessory muscles and clear to auscultation bilaterally Cardio regular rate, regular rhythm, S1 normal heart sound and S2 normal heart sound GI normal to inspection, nondistended, normoactive bowel sounds, soft to palpation, non-tender and non-distended Assessment & Plan Assessment/Plan (1) Acute respiratory failure with hypoxia: (2) Pneumonia due to 2019 novel coronavirus: PLAN: 1. acute hypoxic respiratory failure 2/2 covid 19 pneumonia worsening overnight and this AM. could continue to worsen encouraged IS and flutter valve. 04/15: Improved. Down 4 L. Hopefully patient continues to improve and can be discharged on the . 2. Acute COVID 19 pneumonia unvaccinated on set 04/04. ID consult to see if candidate for baricitinib too late for remdesivir continue dexamethasone. 3. VTE prophylaxis: LMWH. Charges/Coding Visit Charges Inpatient E&M: 11978 Subs Hosp L2
--- NOTE | 2021-04-15 19:36 | PCS.PANDOC ---
PANDEMIC DOCUMENTATION INITIATED: Date: 12/21/2020 Time: 190
[2021-04-16] VITALS (15 sets, daily range): BP systolic 103–124; BP diastolic 58–77; PULSE 44–69; RESP 18; TEMP 36.3–36.9; O2SAT 86–97
[2021-04-16] MEDS: guaiFENesin 1,200 MG Tablet 1200 MG PO ×2 (09:18→21:36)
[2021-04-16] MEDS: dexAMETHasone 4 MG Tablet 6 MG PO (09:18)
[2021-04-16] MEDS: Enoxaparin 30 MG/0.3 ML Syringe SC ×2 (09:18→21:36)
--- NOTE | 2021-04-16 12:54 | PCM.PN.HOSP ---
Subjective Subjective Breathing better. On 6 liter/m. Objective Data Objective Data Vital Signs: Vital Signs Temp Pulse Resp BP Pulse Ox 36.4 C L 52 L 18 103/58 L 86 04/16/21 11:15 04/16/21 11:15 04/16/21 11:15 04/16/21 11:15 04/16/21 11:43 Oxygen Flow Rate (L/min) [ 5 AMBULATING with Oxygen #2] Oxygen Flow Rate (L/min) [ 6 AMBULATING with Oxygen #1] Oxygen Flow Rate (L/min) [At 4 REST with Oxygen] Oxygen Flow Rate (L/min) 6 Oxygen Delivery Method Nasal Cannula Weight: 97.9 kg Body Mass Index (BMI) 31.8 Intake & Output: Intake and Output for Last 24 Hours 04/14/21 04/15/21 04/16/21 23:59 23:59 23:59 Intake Total 1320 / 1320 1490 / 1490 50 / 50 Output Total 650 / 650 1350 / 1350 750 / 750 Balance 670 / 670 140 / 140 -700 / -700 Medical Nutrition Assessment Dietitian: Malnutrition Criteria Met Start: 04/14/21 15:12 Freq: Status: Active Protocol: Document 04/14/21 15:12 RMA (Rec: 04/14/21 15:12 RMA [id number]) Nutrition Malnutrition Evidence of Malnutrition Exists Yes Malnutrition (severe): Acute Illness/Injury Evidenced By Suboptimal Energy Intake ( Severe),Weight Loss (Severe) Clinical Problem Acute Disease or Injury Related Malnutrition Etiology Severe protein-calorie malnutrition in the context of acute illness related to inadequate oral intake and altered GI function/diarrhea Signs/Symptoms as evidenced by wt loss~4% x 10-12 days and PO meeting less than 50% estimated nutrition needs x 10 days Status Active Problem Recommendation Dietitian Recommendations/Changes Regular/no added salt diet Will add strawberry milkshake with whole milk BID at lunch and dinner. Lab / Micro Data Result Diagrams: 04/14/21 06:16 04/15/21 06:34 Micro: Microbiology 04/15/21 13:00 Sputum, Expectorated/Coughed Gram Stain - Final Physical Exam Const alert Resp normal respiratory effort, no retractions, no use of accessory muscles and clear to auscultation bilaterally Cardio regular rate, regular rhythm, S1 normal heart sound and S2 normal heart sound GI normal to inspection, nondistended, normoactive bowel sounds, soft to palpation, non-tender and non-distended Extremity normal to inspection Assessment & Plan Assessment/Plan (1) Acute respiratory failure with hypoxia: (2) Pneumonia due to 2019 novel coronavirus: PLAN: 1. acute hypoxic respiratory failure 2/2 covid 19 pneumonia worsening overnight and this AM. could continue to worsen encouraged IS and flutter valve. 04/15: Improved. Down 4 L. Hopefully patient continues to improve and can be discharged on the . 04/16: On 6 L, drops to 90% walking very slowly. On CTX. Furosemide challenge 2. Acute COVID 19 pneumonia unvaccinated on set 04/04. ID consult to see if candidate for baricitinib too late for remdesivir continue dexamethasone. Elevated LFTs, monitor. 3. VTE prophylaxis: LMWH. Charges/Coding Visit Charges Inpatient E&M: 16817 Subs Hosp L2
[2021-04-16] MEDS: 0.9% Saline Lock 10 ML Syringe IV (13:41)
[2021-04-16] MEDS: Furosemide 40 MG/4 ML Vial IV (13:41)
--- NOTE | 2021-04-16 14:05 | CASEMGMT ---
Green sheet left on chart for home oxygen. Indra SWANSON CM
--- NOTE | 2021-04-16 14:47 | NURSING ---
This RN taking over care at this time
[2021-04-17] VITALS (7 sets, daily range): BP systolic 100–107; BP diastolic 52–66; PULSE 45–62; RESP 16–18; TEMP 36.3–36.6; O2SAT 87–96
[2021-04-17 08:11] LABS: ALB/GLOB Ratio 0.6 RATIO (0.9-2.4); AST(SGOT) 143 U/L (15-37); Alanine Aminotransfer ALT/SGPT 201 U/L (16-61); Albumin, Serum 2.7 g/dL (3.2-5.0); Alkaline Phosphatase 81 U/L (45-117); Anion Gap 7 (5-15); BUN 19 mg/dL (7-18); BUN/Creat Ratio 25.1 RATIO (10-20); Calcium,Total 8.7 mg/dL (8.5-10.1); Chloride 103 mmol/L (98-107); Creatinine, Serum 0.76 mg/dL (0.70-1.30); EST Glomerular Filtration Rate 121 mL/min (>60); Est Glom Filt Rate - Afr Amer 146 mL/min (>60); Globulin 4.3 g/dL (2.2-4.2); Glucose 98 mg/dL (74-106); Potassium 3.9 mmol/L (3.5-5.1); Sodium Level 140 mmol/L (136-145)
[2021-04-17] MEDS: guaiFENesin 1,200 MG Tablet 1200 MG PO (09:01)
[2021-04-17] MEDS: Enoxaparin 30 MG/0.3 ML Syringe SC (09:01)
[2021-04-17] MEDS: dexAMETHasone 4 MG Tablet 6 MG PO (09:01)
--- NOTE | 2021-04-17 12:02 | PCM.DC ---
Discharge Instructions Diet Discharge Diet: No restrictions Activity Discharge Activity: Return to Normal Activity (ease slowly back into your prior routine. ) Additional Activity Instructions:: Self isolate for at least 20 days since symptoms began 04/03-04/22/2021 AND at least one day (24 hours) have passed since resolution of fever without the use of fever-reducing agents AND improvement of symptoms (e.g., cough, shortness of breath) When around people in the same room, wear a face mask. Individuals also in the room should wear a mask. If possible, use a different bathroom and bedroom. Perform adequate hand hygiene. Avoid sharing dishes, glasses, etc. Oxygen 4 liters with rest and 6 liters with exertion. Get a portable pulse oximeter. Dressing / Incision Call your doctor if you observe: Fever of 101 or Higher and Shortness of breath Follow Up Care Test Results: Test results from this visit will be discussed in further detail at your follow-up appointment, if applicable. Discharge Plan Admission Admit Date/Time: 04/14/21 00:41 Primary Reason for Your Visit: COVID 19 Attending Provider: Ernie Martel Primary Care Provider: Phi Domínguez Consulting Providers: Alfredo Michael Discharge Orders/Prescriptions Prescriptions: New Mucus Relief ER 1,200 mg Tablet Extended Release 12hr 1,200 mg PO BID Qty: 10 RF: 0 amoxicillin-pot clavulanate [Augmentin] 875-125 mg tablet 1 tab PO Q12H Qty: 8 RF: 0 Continued dexamethasone [Decadron] 6 mg tablet 6 mg PO DAILY Qty: 6 RF: 0 Referrals / Follow Up: Phi Domínguez MD [Primary Care Provider] - Within 2 Weeks Disposition Disposition (needs filled in before D/C Order can be placed): Home, Self Care
--- NOTE | 2021-04-17 12:11 | DS.PCM_ITS ---
Providers Date of Admission: 04/14/21 Primary Care Physician: Dr. Phi Domínguez MD Consultations 04/14/21 01:53 Consult: Infectious Disease Routine Consulting Provider: Alfredo Michael Reason for Consult: Acute hypoxemic respiratory failure EMERGENT Consult: No MD Notified: Yes Date Notified: 04/14/21 Time Notified: 06:57 Method of Notification: Text Reason For Visit: ACUTE HYPOXEMIC RESP FAILURE 2NDARY TO COVID Diagnosis Discharge Diagnosis (1) Acute respiratory failure with hypoxia: Status: Acute Code(s): J96.01 - Acute respiratory failure with hypoxia (2) Pneumonia due to 2019 novel coronavirus: Status: Acute Code(s): U07.1 - COVID-19; J12.82 - Pneumonia due to coronavirus disease 2019 Medications at Discharge Home Medications amoxicillin-pot clavulanate [Augmentin] 1 tab PO Q12H #8 tab 04/17/21 dexamethasone [Decadron] 6 mg PO DAILY #6 tab 04/17/21 guaifenesin [Mucus Relief ER] 1,200 mg PO BID #10 tab 04/17/21 Hospital Course Operations None Procedures None Summary of Care Provided Minutes Spent on Discharge: 35 Hospital Course: Is a 40-year-old unvaccinated male presents with shortness of breath. Vacation became sick about 2 days after Thanksgiving and then started becoming short of breath. Patient was positive for COVID-19. Patient respiratory status declined while he was here requiring air Vo but subsequently, after about a day, he steadily improved. Today, he was 4 L of oxygen with rest and then 6 L with exertion where you dropped down to 90%. At rest, on room air, he is about 84%. Patient advised slowly to return to his normal routine. Patient was treated with dexamethasone. Patient was also found to have a sputum culture gram-negative diplococci. Possible Moraxella catarrhalis. Final culture still pending but patient will be discharged with Augmentin. Patient tomas d on ceftriaxone patient will complete a 7-day course of antibiotics as outpatient. Physical Exam Const alert and no apparent distress Resp normal respiratory effort, no retractions, no use of accessory muscles and clear to auscultation bilaterally Cardio regular rate, regular rhythm, S1 normal heart sound and S2 normal heart sound GI normal to inspection, nondistended, normoactive bowel sounds, soft to palpation, non-tender and non-distended Extremity normal to inspection Medical Records Data Medical Nutrition Assessment Dietitian: Malnutrition Criteria Met Start: 04/14/21 15:12 Freq: Status: Active Protocol: Document 04/14/21 15:12 RMA (Rec: 04/14/21 15:12 RMA [id number]) Nutrition Malnutrition Evidence of Malnutrition Exists Yes Malnutrition (severe): Acute Illness/Injury Evidenced By Suboptimal Energy Intake ( Severe),Weight Loss (Severe) Clinical Problem Acute Disease or Injury Related Malnutrition Etiology Severe protein-calorie malnutrition in the context of acute illness related to inadequate oral intake and altered GI function/diarrhea Signs/Symptoms as evidenced by wt loss~4% x 10-12 days and PO meeting less than 50% estimated nutrition needs x 10 days Status Active Problem Recommendation Dietitian Recommendations/Changes Regular/no added salt diet Will add strawberry milkshake with whole milk BID at lunch and dinner. Weight / BMI Weight Weight: 97.9 kg Body Mass Index (BMI) 31.8 ABG / Lab / Microbiology Data Result Diagrams: 04/14/21 06:16 04/17/21 06:46 Laboratory: Laboratory Results - last 24 hr 04/17/21 06:46: Sodium 140, Potassium 3.9, Chloride 103, Carbon Dioxide 30.0, Anion Gap 7, BUN 19 H, Creatinine 0.76, Estim Creat Clear Calc 129.20, Est GFR (MDRD) Af Amer 146, Est GFR (MDRD) Non-Af 121, BUN/Creatinine Ratio 25.1 H, Glucose 98, Calcium 8.7, Total Bilirubin 0.40, AST 143 H, ALT 201 H, Alkaline Phosphatase 81, Total Protein 7.0, Albumin 2.7 L, Globulin 4.3 H, Albumin/Globulin Ratio 0.6 L Microbiology: Microbiology 04/16/21 17:00 Urine, Clean Catch Legionella Antigen - Final 04/16/21 17:00 Urine, Clean Catch Streptococcus pneumoniae Antigen (M - Final 04/15/21 13:00 Sputum, Expectorated/Coughed Gram Stain - Final 04/15/21 13:00 Sputum, Expectorated/Coughed Respiratory Culture - Preliminary Gram negative diplococci D/C Instructions Discharge Diet: No restrictions Additional Activity Instructions: Self isolate for at least 20 days since sympt oms began 04/03-04/22/2021 AND at least one day (24 hours) have passed since resolution of fever without the use of fever-reducing agents AND improvement of symptoms (e.g., cough, shortness of breath) When around people in the same room, wear a face mask. Individuals also in the room should wear a mask. If possible, use a different bathroom and bedroom. Perform adequate hand hygiene. Avoid sharing dishes, glasses, etc. Oxygen 4 liters with rest and 6 liters with exertion. Get a portable pulse oximeter. Call your doctor if you observe: Fever of 101 or Higher and Shortness of breath Meaningful Use Info Meaningful Use Diagnoses (Choose all that apply): None applicable Discharge Plan Admission Admit Date/Time: 04/14/21 00:41 Primary Reason for Your Visit: COVID 19 Attending Provider: Ernie Martel Primary Care Provider: Phi Domínguez Consulting Providers: Alfredo Michael Discharge Orders/Prescriptions Prescriptions: New Mucus Relief ER 1,200 mg Tablet Extended Release 12hr 1,200 mg PO BID Qty: 10 RF: 0 amoxicillin-pot clavulanate [Augmentin] 875-125 mg tablet 1 tab PO Q12H Qty: 8 RF: 0 Continued dexamethasone [Decadron] 6 mg tablet 6 mg PO DAILY Qty: 6 RF: 0 Referrals / Follow Up: Phi Domínguez MD [Primary Care Provider] - Within 2 Weeks Disposition Disposition (needs filled in before D/C Order can be placed): Home, Self Care Charges/Coding Visit Charges Inpatient E&M: 28798 Disch Hosp
== END 2021-04-17 14:27 | disposition home or self-care (01) | DRG 177 ==
LOC: ED 23:00 → PCU 04-14 00:55
PROVIDERS: Internal Medicine Infectious Disease; Admitting Provider Hospitalist; Emergency Provider Emergency Medicine; PCP Family Medicine
DX: U07.1 COVID-19 (principal); J12.82 Pneumonia due to coronavirus disease 2019; J96.01 Acute respiratory failure with hypoxia; I10 Essential (primary) hypertension; B96.89 Other specified bacterial agents as the cause of diseases classified elsewhere
CPT/HCPCS: 36415; 71275; 80048; 80053; 83735; 83880; 84145; 84484; 85025; 85379; 85610; 85730; 86140; 87070; 87077; 87205; 87449; 93005; 94660; 94668; 99284; Q9967; A4216; J0696; J1940

== ENCOUNTER → 2021-04-26 09:54 | Outpatient (CLI) | payer BC, SELFPAY ==
--- NOTE | 2021-04-26 09:56 | CT_ITS ---
STUDY: CT BRAIN WITHOUT CONTRAST REASON FOR EXAM: Male, 40 years old. AMS / HEADACHE RADIATION DOSAGE (If Supplied By Facility): CTDIvol = ( 44.99 ) mGy, DLP = ( 779.24 ) mGycm TECHNIQUE: Transaxial CT imaging of the brain was performed without administration of intravenous contrast material. Individualized dose optimization techniques were used for this CT. COMPARISON: No relevant priors. FINDINGS: Normal soft tissue structures. Normal calvarium. Normal size ventricles and extra-axial spaces for the patient''s age. Normal white matter tracts of the cerebral hemispheres. Normal basal ganglia and thalami. Normal brainstem. Normal cerebellum. There is no intracranial hemorrhage. There are no findings of an acute ischemic infarction. Normal visualized paranasal sinuses. CT/Brain/Head without Contrast IMPRESSION: Normal unenhanced CT scan of the brain. Electronically Signed: Cheo Encarnacion MD at 10:19 EST , Service support ,
[2021-04-26 10:48] LABS: Erythrocyte Sedimentation Rate 23 mm/hr (0-20)
[2021-04-26 10:50] LABS: Absolute Lymphocyte Count 1.93 X10^3/uL (0.83-4.51); Absolute Neutrophil Count 5.7 X10^3/uL (2.0-7.7); Basophil# 0.02 X10^3/uL; Basophil% 0.2 % (0-1); Eosinophil# 0.05 X10^3/uL; Eosinophils% 0.6 % (0-5); Hematocrit 45.2 % (40-54); Hemoglobin 15.3 g/dL (13.0-16.5); Lymphocyte # 1.93 X10^3/ul (0.83-4.51); Lymphocyte % 22.2 % (19-41); Mean Corp Hgb Conc 33.8 g/dL (32-36); Mean Corpuscular Hgb 32.1 pg (27.0-32.0); Mean Platelet Vol. 9.3 fl (6.2-12.0); Monocyte# 0.99 X10^3/uL; Monocyte% 11.4 % (0-10); NRBC Flagged by Analyzer 0 % (0-5); Neutrophil # 5.69 X10^3/uL (2.7-7.7); Neutrophil % 65.3 % (47-70); Platelet Count 446 K/mm3 (150-450); RBC Distribution Width CV 12.2 % (11.6-14.6); RBC Distribution Width SD 42.3 fl (35.1-43.9); Red Blood Count 4.76 M/mm3 (4.6-6.2); White Blood Count 8.7 K/mm3 (4.4-11.0)
[2021-04-26 10:51] LABS: D-Dimer Quantitative (DVT/PE) 0.33 FEU/ug/m (0.27-0.49)
[2021-04-26 11:03] LABS: ALB/GLOB Ratio 0.9 RATIO (0.9-2.4); AST(SGOT) 62 U/L (15-37); Alanine Aminotransfer ALT/SGPT 115 U/L (16-61); Albumin, Serum 3.5 g/dL (3.2-5.0); Alkaline Phosphatase 82 U/L (45-117); Anion Gap 8 (5-15); BUN 13 mg/dL (7-18); BUN/Creat Ratio 14.4 RATIO (10-20); CRP < 2.90 mg/L (0.0-3.0); Calcium,Total 8.8 mg/dL (8.5-10.1); Chloride 106 mmol/L (98-107); EST Glomerular Filtration Rate 99 mL/min (>60); Est Glom Filt Rate - Afr Amer 120 mL/min (>60); Globulin 3.9 g/dL (2.2-4.2); Glucose 106 mg/dL (74-106); Potassium 3.4 mmol/L (3.5-5.1); Protein, Total 7.4 g/dL (6.4-8.2); Sodium Level 140 mmol/L (136-145)
[2021-04-26 11:04] LABS: Lactic Acid 0.9 mmol/L (0.4-1.9)
== END ==
PROVIDERS: PCP Family Medicine; Referring Provider Family Medicine; Visit Provider Family Medicine
DX: R41.82 Altered mental status, unspecified (principal); R51.9 Headache, unspecified
CPT/HCPCS: 36415; 70450; 80053; 82140; 83605; 85025; 85379; 85652; 86140

== ENCOUNTER 2021-04-26 14:45 | Emergency (ER) | payer BC, SELFPAY ==
[2021-04-26 14:46] VITALS: BP 121/79; PULSE 114; RESP 18; TEMP 36.2; O2SAT 96; BMI 30.4
--- NOTE | 2021-04-26 15:29 | EDS_ITS ---
HPI History of Present Illness Chief Complaint: Mental Health Informant: patient and spouse/S.O. Narrative Narrative: Patient comes in for recommendation of PCPs office secondary to psychosis. Patient had Covid 3 weeks ago and did require a short hospital stay. states he was doing well and back to baseline with no medications. Yesterday he started having some hallucinations and felt like his brain was foggy. He was seen by PCP this morning for confusion and memory loss. He had multiple labs done as well as a head CT which were largely unremarkable. PCP states he started talking about hearing voices and seeing things as well as having superpowers. He was started on risperidone and has had only one single dose. He was sent to the ER for possible inpatient psych treatment. At this time patient has no complaints. He states he feels fine. He denies suicidal homicidal ideation. PFSH PFSH Home Medications risperidone 1 mg PO DAILY 04/26/21 [History Last Taken Unknown] Allergy/AdvReac Type Severity Reaction Status Date / Time No Known Allergies Allergy Verified 04/26/21 14:47 Surgical History H/O knee surgery Social History Smoking Status: Never smoker ROS ROS ED Constitutional Constitutional ED: Denies chills or fever(s) Eyes Eyes: Denies change in vision ENT ENT ED: Denies sore throat Cardiovascular Cardiovascular: Denies chest pain Respiratory/Chest Respiratory/Chest: Denies cough or dyspnea Gastrointestinal Gastrointestinal: Denies abdominal pain, diarrhea, nausea or vomiting Genitourinary Genitourinary ED: Denies dysuria Musculoskeletal Musculoskeletal: Denies back pain Integumentary Denies rash Neurologic Neurologic: Denies headache(s) or weakness Allergic/Immunologic Allergic/Immunologic ED: Denies urticaria EXAM Physical Exam Const Vital Signs: 04/26/21 14:46 04/26/21 16:45 Temperature 97.1 F L Temperature Source Temporal Pulse Rate 114 H Respiratory Rate 18 16 Blood Pressure 121/79 H Blood Pressure Mean 93 Pulse Ox 96 Oxygen Delivery Method Room Air Positive well nourished and well developed General Appearance ED: well developed Eyes PERRL and EOMs intact bilaterally Neck supple Chest Wall inspection of chest normal and palpation of chest normal Resp normal respiratory effort and clear to auscultation bilaterally Cardio regular rate and regular rhythm GI non-tender Palpation: soft Extremity normal to inspection Neuro oriented x3 Sensorium / Orientation: alert Skin no rashes or lesions noted MDM MDM MDM Narrative Medical decision making narrative: Patient's lab work from earlier today is reviewed. BMP revealed a mildly low potassium at 3.4. Remainder labs unremarkable. Head CT normal. In light of this repeat BMP was obtained along with urine tox screen and alcohol level. Covid test ordered. Lab Data Attestation: I reviewed the patient's lab results. Labs: Laboratory Results - last 24 hr 04/26/21 04/26/21 04/26/21 15:45 15:45 16:07 Sodium 140 Potassium 4.2 Chloride 106 Carbon Dioxide 28.0 Anion Gap 6 BUN 11 Creatinine 0.96 Estim Creat Clear Calc 102.29 Est GFR (MDRD) Af Amer 111 Est GFR (MDRD) Non-Af 92 BUN/Creatinine Ratio 11.4 Glucose 123 H Calcium 9.1 Urine Opiates Screen NEGATIVE Urine Methadone Screen NEGATIVE Ur Barbiturates Screen NEGATIVE Ur Phencyclidine Scrn NEGATIVE Ur Amphetamines Screen NEGATIVE U Methamphetamin-MDMA NEGATIVE U Benzodiazepines Scrn NEGATIVE Urine Cocaine Screen NEGATIVE U Cannabinoids Screen NEGATIVE Ur Drug Screen Comment Ethyl Alcohol < 3.0 Treatment and Re-Evaluation Comments:: Social work met with the patient and . Per patient is improved after starting risperidone by PCP. She wishes to take him home. Close follow-up is being arranged and return instructions provided. Discharge Plan Triage Chief Complaint: Mental Health ED Provider: Breana Bucio Dx/Rx/DC Orders Clinical Impression: Hallucinations Instructions: ED Depression Prescriptions: No Action risperidone 1 mg tablet 1 mg PO DAILY RF: 0 Primary Care Provider: Carine Moreno Referrals: Carine Moreno DO [Primary Care Provider] - Behavioral,Health [facility] [GROUP OF PHYSICIANS] - As soon as possible Disposition Disposition: Home, Self Care
[2021-04-26 16:06] LABS: Anion Gap 6 (5-15); BUN 11 mg/dL (7-18); BUN/Creat Ratio 11.4 RATIO (10-20); Calcium,Total 9.1 mg/dL (8.5-10.1); Chloride 106 mmol/L (98-107); Creatinine, Serum 0.96 mg/dL (0.70-1.30); EST Glomerular Filtration Rate 92 mL/min (>60); Est Glom Filt Rate - Afr Amer 111 mL/min (>60); Estimated Creatinine Clearance 102.29 ml/min; Glucose 123 mg/dL (74-106); Potassium 4.2 mmol/L (3.5-5.1); Sodium Level 140 mmol/L (136-145)
[2021-04-26 16:18] LABS: Alcohol, Blood (Medical)-Serum < 3.0 mg/dL
[2021-04-26 16:33] LABS: Amphetamine Urine VISTA NEGATIVE (<1000 ng/mL); Barbiturate Urine VISTA NEGATIVE (< 200 ng/mL); Benzodiazepine Urine VISTA NEGATIVE (< 200 ng/mL); Cocaine Urine VISTA NEGATIVE (< 300 ng/mL); Ecstacy Urine VISTA NEGATIVE (< 500 ng/mL); Methadone Urine VISTA NEGATIVE (< 300 ng/mL); PCP Urine VISTA NEGATIVE (< 25 ng/mL); THC Urine VISTA NEGATIVE (< 50 ng/mL); Vista UDS pH Range 6
[2021-04-26 16:45] VITALS: RESP 16
--- NOTE | 2021-04-26 17:20 | CM.ED ---
SOCIAL WORK ASSESSMENT Referral Source: Dr. Bucio Reason for Consult: Mental health evaluation Chief Compliant: Patient presents to ER by his from PCP?s office. Patient diagnosed with COVID-19 3 weeks ago. 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 Marital/Social History: Living Situation: Home with and 3 children Support/Resources: family History: None Education and Employment History: Bachelor?s degree, employed full-time with [employer] Mental Health Treatment/History: No prior history of mental health. Triggers/Stressors: COVID-19 diagnosis 3 weeks ago. Patient had to be hospitalized and required O2. Coping Skills: reading, learning new things Abuse Issues: Patient denies any history of emotional, physical, or sexual abuse. Substance Abuse History: Patient reports ?I used to drink alcohol, but I haven?t since I?ve been sick.? Risk to Self/Others: Suicidal- Patient denies any suicidal ideation, plan, or intent. Homicidal- Patient denies any homicidal ideation. Violence- Patient denies any violence to self or others. Mental Status Exam: Orientation- A&OX3 Memory: fair Appearance/General Behavior: clean/appropriate, calm Mood/Affect: flat Communication Pattern: responds to questions Thought Process: patient reports patient with hallucinations. Patient denies any current paranoia or hallucinations. General Intellectual Functioning: Average Judgement: fair Insight: fair Assessment: Met with patient and patient?s in room. Patient gave permission for this worker to speak openly with present. Patient reports ?fog? for last few weeks. Patient discussed diagnosis of COVID-19 and hospitalization due to COVID-19. Patient reports did not sleep last night and was in a ?fog? all day. Patient states ?I was remembering a lot of words, I just felt very confused.? Patient calm and cooperative throughout assessment. states patient was started on medication today and a steroid taper. believes medications to be working due to change in patient?s behavior. Patient wishes to return home. in agreement with patient returning home and states ?we came to an agreement that he will listen to me.? Much support, education, and active listening provided. Patient informed if symptoms worsen may need hospitalized for stabilization. Patient verbalized understanding. Collaboration with Dr. Bucio who is in agreement with plan for home. Patient and encouraged to return to ER if needed. Patient and provided with resources. Plan: Home with resources provided Becky Richards MSW, [employer] WORK[employer]
[2021-04-26 17:46] VITALS: PULSE 84; RESP 16; O2SAT 99
== END 2021-04-26 17:47 | disposition home or self-care (01) ==
PROVIDERS: Emergency Provider Emergency Medicine; PCP Family Medicine
DX: R44.3 Hallucinations, unspecified (principal); Z86.16 Personal history of COVID-19
CPT/HCPCS: 80048; 80307; 82077; 87426; 99282

== ENCOUNTER → 2022-10-20 | Outpatient (CLI) | payer BC, SELFPAY ==
[2022-10-20 17:55] LABS: Absolute Neutrophil Count 4.6 X10^3/uL (2.0-7.7); Basophil# 0.06 X10^3/uL; Basophil% 0.7 % (0-1); Eosinophil# 0.11 X10^3/uL; Eosinophils% 1.4 % (0-5); Hematocrit 45.1 % (40-54); Hemoglobin 14.9 g/dL (13.0-16.5); Lymphocyte % 32.3 % (19-41); Mean Corpuscular Hgb 32.8 pg (27.0-32.0); Mean Corpuscular Volume 99.3 fL (80-94); Mean Platelet Vol. 10.7 fl (6.2-12.0); Monocyte# 0.68 X10^3/uL; Monocyte% 8.4 % (0-10); NRBC Flagged by Analyzer 0 % (0-5); Neutrophil # 4.58 X10^3/uL (2.7-7.7); Platelet Count 345 K/mm3 (150-450); RBC Distribution Width CV 12.2 % (11.6-14.6); RBC Distribution Width SD 45.5 fl (35.1-43.9); Red Blood Count 4.54 M/mm3 (4.6-6.2); White Blood Count 8.1 K/mm3 (4.4-11.0)
[2022-10-20 18:33] LABS: ALB/GLOB Ratio 1.1 RATIO (0.9-2.4); AST(SGOT) 77 U/L (15-37); Alanine Aminotransfer ALT/SGPT 73 U/L (16-61); Albumin, Serum 4.1 g/dL (3.2-5.0); Alkaline Phosphatase 86 U/L (45-117); Anion Gap 5 (5-15); BUN 11 mg/dL (7-18); BUN/Creat Ratio 11.6 RATIO (10-20); Calcium,Total 9.4 mg/dL (8.5-10.1); Chloride 105 mmol/L (98-107); Cholesterol 189 mg/dL (200); Creatinine, Serum 0.95 mg/dL (0.70-1.30); EST Glomerular Filtration Rate 93 mL/min (>60); Est Glom Filt Rate - Afr Amer 112 mL/min (>60); Globulin 3.7 g/dL (2.2-4.2); Glucose 101 mg/dL (74-106); High Density Lipoprotein 48 mg/dL; Potassium 3.9 mmol/L (3.5-5.1); Protein, Total 7.8 g/dL (6.4-8.2); Sodium Level 138 mmol/L (136-145); Triglycerides 93 mg/dL; Very Low Density Lipoprotein 19 mg/dL (5-40)
[2022-10-20 18:37] LABS: Vitamin B12 400 pg/mL (211-911)
[2022-10-20 18:45] LABS: Hemoglobin A1c 5.7 % (3.8-5.6)
== END | disposition home or self-care (01) ==
LOC: BFHLAB 16:13
PROVIDERS: PCP Family Medicine; Referring Provider Family Medicine; Visit Provider Family Medicine
DX: E03.9 Hypothyroidism, unspecified (principal); R20.0 Anesthesia of skin; R10.9 Unspecified abdominal pain
CPT/HCPCS: 36415; 80053; 80061; 82607; 83036; 84443; 85025

== ENCOUNTER → 2023-04-25 | Outpatient (CLI) | payer BC, SELFPAY ==
--- NOTE | 2023-04-25 10:04 | RAD_ITS ---
STUDY: X-RAY - LUMBAR SPINE REASON FOR EXAM: Male, 42 years old. pain TECHNIQUE: 3 view(s) of the lumbar spine were obtained. COMPARISON: None FINDINGS: Normal lumbar lordosis. There is no substantial scoliosis. There is a normal alignment of the vertebrae. Normal vertebral bodies and endplates. Normal disc space heights. There is multilevel facet hypertrophy in the lower lumbar spine. The soft tissue structures are unremarkable. RAD/Lumbar Spine 2 or 3 Views IMPRESSION: Degenerative changes of the spine, as detailed above. MRI may be useful. Electronically Signed: Moustapha Minor MD at 19:19 EST ,
--- NOTE | 2023-04-25 10:04 | RAD_ITS ---
STUDY: X-RAY - PELVIS AND RIGHT HIP REASON FOR EXAM: Male, 42 years old. pain TECHNIQUE: 3 views of the pelvis and hip. COMPARISON: None. FINDINGS: There is a non-specific bowel gas pattern. Normal visualized soft tissue structures. Normal bilateral iliac wings, sacroiliac joints and visualized sacrum. Normal bilateral superior and inferior pubic rami. Normal pubic symphysis. Normal bilateral ischial tuberosities. Normal visualized femoral head. Normal acetabulum. Normal hip joint. RAD/HIP, UNI W/ Pelvis 2-3 Views IMPRESSION: Normal x-ray examination of the pelvis and hip. Electronically Signed: Moustapha Minor MD at 19:18 EST ,
== END | disposition home or self-care (01) ==
LOC: MTRAD 10:04
PROVIDERS: PCP Family Medicine; Referring Provider Orthopaedic Surgery; Visit Provider Orthopaedic Surgery
DX: M54.50 Low back pain, unspecified (principal); M25.551 Pain in right hip
CPT/HCPCS: 72100; 73502

== ENCOUNTER → 2023-05-25 | Outpatient (CLI) | payer BC, SELFPAY ==
--- NOTE | 2023-05-25 07:35 | MRI_ITS ---
STUDY: MRI RIGHT HIP REASON FOR EXAM: Male, 42 years old. Pain. TECHNIQUE: Standardized fat and water weighted pulse sequences were obtained in all 3 orthogonal planes. COMPARISON: Right hip radiographs dated 04/25/2023. FINDINGS: There is geographic and serpiginous signal abnormality of the femoral heads bilaterally, compatible with avascular necrosis. There is marrow edema throughout the femoral heads/necks bilaterally. There are small hip joint effusions bilaterally. There is a tear of the right anterior acetabular labrum (sagittal PD series 8 images 14-16). Normal bilateral acetabula. Normal femoral neck and intratrochanteric region. Normal gluteus minimus, medius and iliopsoas tendons and distal insertions. There is no trochanteric, iliopsoas or iliopectineal bursitis. Normal superior and inferior pubic rami. Normal pubic symphysis. Normal ischial tuberosity. Normal origin of the hamstring tendons. Normal visualized iliac wing, sacroiliac joint, and sacral ala. Normal visualized soft tissue structures of the pelvis. 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 Small hip joint effusions bilaterally. Tear of the right anterior acetabular labrum. Electronically Signed: Feliberto Wilhelm MD at 11:15 EST ,
== END | disposition home or self-care (01) ==
LOC: MRI 07:31
PROVIDERS: PCP Family Medicine; Referring Provider Orthopaedic Surgery; Visit Provider Orthopaedic Surgery
DX: M87.9 Osteonecrosis, unspecified (principal)
CPT/HCPCS: 73721

== ENCOUNTER 2023-11-15 10:00 | Outpatient (CLI) | payer BC, SELFPAY ==
[2023-11-15 12:12] LABS: International Normalized Ratio 1.1; Partial Thromboplast Time 32.9 Seconds (24.1-36.2); Prothrombin Time (Protime)PT. 13.7 SECONDS (11.7-14.9)
[2023-11-15 12:24] LABS: Anion Gap 6 (5-15); BUN 13 mg/dL (7-18); BUN/Creat Ratio 12.7 RATIO (10-20); Calcium,Total 9.7 mg/dL (8.5-10.1); Chloride 108 mmol/L (98-107); Creatinine, Serum 1.02 mg/dL (0.70-1.30); EST Glomerular Filtration Rate 85 mL/min (>60); Est Glom Filt Rate - Afr Amer 102 mL/min (>60); Glucose 102 mg/dL (74-106); Magnesium 2.2 mg/dL (1.6-2.6); Potassium 3.7 mmol/L (3.5-5.1); Sodium Level 140 mmol/L (136-145)
[2023-11-15 12:25] LABS: Absolute Neutrophil Count 3.3 X10^3/uL (2.0-7.7); Basophil# 0.05 X10^3/uL; Basophil% 0.8 % (0-1); Eosinophils% 1.6 % (0-5); Hematocrit 44.3 % (40-54); Hemoglobin 14.7 g/dL (13.0-16.5); Lymphocyte % 37.2 % (19-41); Mean Corp Hgb Conc 33.2 g/dL (32-36); Mean Corpuscular Hgb 31.3 pg (27.0-32.0); Mean Corpuscular Volume 94.5 fL (80-94); Mean Platelet Vol. 11.2 fl (6.2-12.0); Monocyte# 0.48 X10^3/uL; Monocyte% 7.8 % (0-10); NRBC Flagged by Analyzer 0 % (0-5); Neutrophil # 3.25 X10^3/uL (2.7-7.7); Neutrophil % 52.4 % (47-70); Platelet Count 289 K/mm3 (150-450); RBC Distribution Width CV 12.5 % (11.6-14.6); RBC Distribution Width SD 42.7 fl (35.1-43.9); Red Blood Count 4.69 M/mm3 (4.6-6.2); White Blood Count 6.2 K/mm3 (4.4-11.0)
[2023-11-15 13:46] LABS: Hemoglobin A1c 5.6 % (3.8-5.6)
[2023-11-16 05:07] LABS: Fructosamine 246 umol/L (0-285)
== END 2023-11-16 23:59 | disposition home or self-care (01) ==
LOC: PAT 03-29 16:58
PROVIDERS: Anesthesiology; PCP Family Medicine; Referring Provider Orthopaedic Surgery; Visit Provider Orthopaedic Surgery
DX: Z01.818 Encounter for other preprocedural examination (principal); Z01.812 Encounter for preprocedural laboratory examination
CPT/HCPCS: 36415; 80048; 82985; 83036; 83735; 85025; 85610; 85730; 86850; 86900; 86901; 87081

== ENCOUNTER 2024-01-26 14:00 | Outpatient (RCR) | payer OTHER, SELFPAY ==
--- NOTE | 2024-01-19 10:26 | HP.PTEVAL ---
Patient's Visit Information Visit Information Visit Information: WARREN MATIAS is a 43 year old M referred to Physical Therapy by GABINO BERG with a diagnosis of R JASPREET DOS: 12/29/23. Date of Evaluation: 01/12/24 Physical Therapist: Aris Segal DPT Visit Plan Frequency: 1x/Week Duration: 6 Weeks Plan: Start with core and hip strengthening. Add in functional strengthening. Stretching as tolerated of R hip. Hip procautions. Subjective Subjective: Pt reports 2 weeks post-op R JASPREET due to avascular necrosis bilaterally. He also states he will have to have the L hip replaced at some point. Pt reports taking Tylenol for pain. More pain in the L hip compared to the R. Pt reports prior to surgery no pain except for when ambulating and going up/down stairs. Pt reports initial pain felt like a strained hip flexor but then the pain got worse. No R hip ext, IR, or ER due to anterior approach. Pt reports limitations with running, ascending/descending stairs, squatting, and light recreational activities with kids. Pt reports limitations when laying on both his sides when trying to sleep, prefers to sleep supine. Pt reports no numbness or tingling. Pain when at rest 1/10 is and pain at worst is 3/10. Pt reports initial pain when standing up but will go away once ambulating. Objective Objective: Sensation: normal DTR: normal throughout B LEs. MMT: LLE: knee: ext 65.6#, flexion: 31.5#. RLE: knee: ext 43.4#, flexion: 27.4#. ROM: R hip: flexion 80deg, HS length 75deg. L hip: flexion 110deg. , HS length 75sdeg. gait: fairly normal slight lateral hip translation, but no Trendelenburg. STAIRS: repriprocal pattern, but more difficulty with WBIng through her RLE. TU.1sec without AD Goals Goal 1:: LTG: Pt. to be I with HEP. Goal Time Frame: 4-6 Weeks Goal 2:: LTG: Pt. to complete TUG with less than 10seconds without AD. Goal Time Frame: 2-4 Weeks Goal 3:: LTG: Pt. to have symmetrical strength between BLEs. Goal Time Frame: 4-6 Weeks Goal 4:: LTG: pt. to ambulate without AD for unlimited distances. Goal Time Frame: 4-6 Weeks Rehabilitation Potential Physical Therapy Diagnosis: Pt. has signs and symptoms consistent with R JASPREET. Pt. has some R LE weakness, hypomobilty in his RLE and difficulty with walking. Pt. would benefit from PT to address the above limitations progressing back to all previous levels of function. Rehabilitation Potential: Excellent Anticipated Interventions Patient/Client Instruction: Educate patient on: Condition, Plan of Care, Risk Factors and Benefits of Fitness Program For the Purpose of:: To foster healthy habits, To improve decision making, To facilitate caregiver knowledge, To improve self management, To prevent re-injury and To improve ability to perform tasks related to life management Therapeutic Exercise to Include: Strength training, Power training, Coordination, Flexibilty training, Gait and locomotor training, Passive ROM and Active ROM For the Purpose of:: To decrease pain, To increase ROM, To improve nutrient delivery to tissue, To increase oxygenation perfusion and To improve muscle performance and motor function Text: Thank you for the opportunity to evaluate your patient. For Medicare and Medicare HMO plans, please review the plan of care and approve it. It will need to be FAXED BACK to us at [phone] for Medicare purposes. For Medicare only, by signing this I certify the plan of care. Please let me know if there are questions or concerns regarding this plan of care. Physician Signature: Date:
== END 2024-01-26 19:00 | disposition home or self-care (01) ==
LOC: PT 14:00
PROVIDERS: PCP Family Medicine
DX: Z96.641 Presence of right artificial hip joint (principal); M87.9 Osteonecrosis, unspecified
CPT/HCPCS: 97110; 97161

== ENCOUNTER → 2024-09-17 | Outpatient (CLI) | payer OTHER, SELFPAY ==
[2024-09-17 18:12] LABS: Absolute Neutrophil Count 2.6 X10^3/uL (2.0-7.7); Basophil# 0.03 X10^3/uL; Basophil% 0.5 % (0-1); Eosinophil# 0.09 X10^3/uL; Eosinophils% 1.5 % (0-5); Hematocrit 44.4 % (40-54); Hemoglobin 15.2 g/dL (13.0-16.5); Lymphocyte % 46.2 % (19-41); Mean Corp Hgb Conc 34.2 g/dL (32-36); Mean Corpuscular Hgb 32.2 pg (27.0-32.0); Mean Corpuscular Volume 94.1 fL (80-94); Mean Platelet Vol. 10.7 fl (6.2-12.0); Monocyte# 0.47 X10^3/uL; NRBC Flagged by Analyzer 0 % (0-5); Neutrophil # 2.55 X10^3/uL (2.7-7.7); Neutrophil % 43.6 % (47-70); Platelet Count 272 K/mm3 (150-450); RBC Distribution Width CV 12.3 % (11.6-14.6); RBC Distribution Width SD 42.8 fl (35.1-43.9); Red Blood Count 4.72 M/mm3 (4.6-6.2); White Blood Count 5.9 K/mm3 (4.4-11.0)
[2024-09-17 18:30] LABS: ALB/GLOB Ratio 1.9 RATIO (0.9-2.4); AST(SGOT) 101 U/L (<=37); Alanine Aminotransfer ALT/SGPT 113 U/L (<=46); Albumin, Serum 4.7 g/dL (3.5-5.0); Alkaline Phosphatase 67 U/L (40-129); Anion Gap 11 (5-15); BUN 12 mg/dL (4-19); BUN/Creat Ratio 12.5 RATIO (10-20); Calcium,Total 9.3 mg/dL (7.6-11.0); Carbon Dioxide 23.8 mmol/L (21.0-32.0); Chloride 106 mmol/L (98-108); Cholesterol 181 mg/dL (<=200); Creatinine, Serum 0.96 mg/dL (0.70-1.20); EST Glomerular Filtration Rate 100 (>60); Globulin 2.5 g/dL (2.2-4.2); Glucose 98 mg/dL (70-99); High Density Lipoprotein 37 mg/dL; Low Density Lipoprotein Calc. 133 mg/dL; Potassium 3.7 mmol/L (3.3-5.1); Protein, Total 7.2 g/dL (5.9-8.4); Sodium Level 140 mmol/L (133-145); Total Bilirubin 0.66 mg/dL (0.00-1.30); Triglycerides 59 mg/dL; Very Low Density Lipoprotein 12 mg/dL (5-40); cholesterol:hdl ratio screen 4.95
== END | disposition home or self-care (01) ==
LOC: MTLAB 15:09
PROVIDERS: PCP Family Medicine; Referring Provider Family Medicine; Visit Provider Family Medicine
DX: Z00.00 Encounter for general adult medical examination without abnormal findings (principal)
CPT/HCPCS: 36415; 80053; 80061; 85025

== ENCOUNTER → 2024-10-12 | Outpatient (CLI) | payer OTHER, SELFPAY ==
--- OUTSIDE RECORDS SUMMARY | 2024-10-12 07:46 | XMS RPT_ITS | CCD ---
Author Organization [facility] Care Team Providers Care Research Chief Engineer Name Role Phone Dr. Carine Moreno Primary Care Provider [phone] Dr. Carine Moreno Referring Provider [phone] Dr. Doyle Ascencio Attending Provider Carine Moreno DO Primary Care Provider Carine Moreno DO Primary Care Provider [phone] LETICIA, OUSMANE Attending Unavailable MORENA, GABINO Referring Unavailable MALYS, CARINE A Primary Care Unavailable MORENA, GABINO Referring Unavailable MALYS, CARINE A Primary Care Unavailable MORENA, GABINO Attending Unavailable DOYLE URBINA Referring Unavailable MOREAN, GABINO Attending Unavailable MALYS, CARINE A Primary Care Unavailable MORENA, GABINO Attending Unavailable MORENA, GABINO Referring Unavailable MALYS, CARINE A Primary Care Unavailable MORENA, GABINO Referring Unavailable MALYS, CARINE A Primary Care Unavailable PROVIDER, UNKNOWN Referring Unavailable MALYS, CARINE A Primary Care Unavailable MALYS, CARINE A Primary Care Unavailable LETICIA, OUSMANE Referring Unavailable MALYS, CARINE A Primary Care Unavailable LETICIA, OUSMANE Referring Unavailable LETICIA, OUSMANE Referring Unavailable MALYS, CARINE A Primary Care Unavailable LETICIA, OUSMANE Referring Unavailable MALYS, CARINE A Primary Care Unavailable MORENA, GABINO Referring Unavailable MALYS, CARINE A Primary Care Unavailable MORENA, GABINO Attending Unavailable MORENA, GABINO Admitting Unavailable MALYS, CARINE A Primary Care Unavailable LETICIA, OUSMANE Referring Unavailable Malys Dr. Carine LEON Primary Care Provider Dr. Benigno Zaragoza DO Attending Provider Dr. Benigno Zaragoza DO Referring Provider Robi Corona Attending Unavailable Malys, Carine Primary Care Unavailable Malys, Carine Primary Care Unavailable Malys, Carine Referring Unavailable Zachcortney, Nigel Attending Unavailable Zachso, Nigel Attending Unavailable Glendaruso, Nigel Referring Unavailable Malys, Carine Primary Care Unavailable VIJAYA, JESSE Attending Unavailable VIJAYA, JESSE Referring Unavailable Malys, Carine Primary Care Unavailable Benigno Zaragoza Attending Unavailable Benigno Zaragoza Referring Unavailable Malys, Carine Primary Care Unavailable Benigno Zaragoza Attending Unavailable Benigno Zaragoza Referring Unavailable Malys, Carine Primary Care Unavailable Medications Current Medications Medication Drug Class(es) Dates Sig (Normalized) Sig (Original) acetaminophen 500 mg oral tablet (6 sources) Start: 12-22-2023 take 2 tablets by mouth every eight hours as needed acetaminophen (TYLENOL EXTRA STRENGTH) 500 mg tablet Take 2 tablets by mouth every 8 hours as needed for pain. 12/22/2023 Active acetaminophen (T YLENOL ORAL) Take by mouth. 0 Active Comment on above: Take by mouth. aspirin 325 mg oral tablet (13 sources) Platelet Aggregation Inhibitor, Nonsteroidal Anti-inflammatory Drug Start: 12-22-2023 End: 02-02-2024 take 1 tablet by mouth twice daily aspirin 325 mg tablet Take 1 tablet by mouth two times a day. 84 tablet 12/22/2023 Active Start: 06-14-2023 End: 12-08-2023 take 1 tablet by mouth twice daily aspirin 325 mg tablet Take 1 tablet by mouth two times a day. 84 tablet 06/14/2023 12/08/2023 Discontinued (Course of therapy completed) Comment on above: Take 1 tablet by marly two times a day. ibuprofen 100 mg oral tablet (3 sources) Nonsteroidal Anti-inflammatory Drug Start: 11-14-2023 take 2 tablets by mouth every eight hours as needed for pain Ibuprofen 100 mg tablet Active 200 mg PO EVERY 8 HOURS NEEDED as needed for pain November 14, 2023 12:00am take 1 tablet by mouth twice juan ly ibuprofen (MOTRIN IB) 200 mg tablet Take 200 mg by mouth two times a day. 0 Active mupirocin 0.02 mg/mg topical ointment (5 sources) RNA Synthetase Inhibitor Antibacterial Start: 12-17-2023 End: 12-21-2023 mupirocin (BACTROBAN) 2 % ointment Indications: Avascular necrosis of bone of hip, right (HCC) , Bilateral hip pain , Status post hip surgery , Pre-op testing , Tear of right acetabular labrum, initial encounter Using a Q-Tip, apply 1/2 inch strip of ointment to both nostrils, twice daily, for 5 days before surgery Patient should start on December 17, 2023. 22 g 0 12/17/2023 12/21/2023 Active [place]el[place]ajo (Nk) (1 source) Start: 05-22-2023 [place] (Nk) Active May 22, 2023 12:00am omeprazole 20 mg delayed release oral capsule (13 sources) Proton Pump Inhibitor Start: 06-14-2023 End: 02-02-2024 take 1 capsule by mouth once daily omeprazole (PRILOSEC) 20 mg capsule Take 1 capsule by mouth once daily. 42 capsule 12/22/2023 Active Comment on above: Take 1 capsule by [facility] once daily. Completed/Discontinued Medications Medication Drug Class(es) Dates Sig (Normalized) Sig (Original) dexamethasone 6 mg oral tablet (6 sources) Corticosteroid Start: 1 End: 1 take 1 tablet by mouth once daily Dexamethasone (Decadron) 6 mg tablet Discontinued 6 mg PO DAILY April 14, 2021 1:57am April 17, 2021 1:08pm methylPREDNISolone 4 mg oral tablet (3 sources) Corticosteroid Start: 3 End: 3 take 1 tablet by mouth once Methylprednisolone (Medrol (Venancio)) 4 mg tablets,dose pack Discontinued 0 PO per package directions April 12, 2023 1:00am April 25, 2023 11:45am PO PER PKG DIR risperiDONE 1 mg oral tablet (3 sources) Atypical Antipsychotic Start: 1 End: 4 take 1 tablet by mouth once daily Risperidone 1 mg tablet Discontinued 1 mg PO DAILY April 26, 2021 1:00am May 22, 2023 11:41am Problems Active Problems Problem Classification Problem Date Documented Da te Episodic/Chronic Abdominal pain (1 source) Right upper quadrant pain; Translations: [Right upper quadrant pain] Onset: 10-08-2024 Episodic Other bone disease and musculoskeletal deformities (1 source) Bone necrosis; Translations: [Osteonecrosis, unspecified] 05-22-2023 Chronic Other bone disease and musculoskeletal deformities (2 sources) Osteonecrosis, unspecified; Translations: [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] Onset: 07-10-2024 05-22-2023 Chronic Other bone disease and musculoskeletal deformities (7 sources) Avascular necrosis of bone of hip; Translations: [Idiopathic aseptic necrosis of right femur] 06-30-2023 Chronic Other bone disease and musculoskeletal deformities (3 sources) Avascular necrosis of bone of hip; Translations: [Idiopathic aseptic necrosis of left femur] 06-30-2023 Chronic Other bone disease and musculoskeletal deformities (3 sources) Idiopathic aseptic necrosis of right femur; Translations: [Avascular necrosis of bone of hip, right (HCC)] Onset: 07-27-2023 Chronic Other bone disease and musculoskeletal deformities (2 sources) Idiopathic aseptic necrosis of left femur; Translations: [Avascular necrosis of bone of hip, left (HCC)] Onset: 06-13-2023 Chronic Other bone disease and musculoskeletal deformities (1 source) Bilateral hips aseptic necrosis; Translations: [Osteonecrosis, unspecified] 05-22-2023 Chronic Other connective tissue disease (2 sources) History of total hip arthroplasty; Translations: [Presence of right artificial hip joint] 01-02-2024 Chronic Other lower respiratory disease (3 sources) Hypoxia; Translations: [Hypoxemia] 04-21-2021 Episodic Other non-traumatic joint disorders (5 sources) Hip pain; Translations: [Pain in right hip] 08-18-2023 Episodic Other non-traumatic joint disorders (3 sources) Pain in right hip; Translations: [Bilateral hip pain] Onset: 07-27-2023 Episodic Other non-traumatic joint disorders (3 sources) Pain in left hip; Translations: [Bilateral hip pain] Onset: 07-27-2023 Episodic Other nutritional; endocrine; and metabolic disorders (19 sources) Obese class I; Translations: [Obesity, unspecified] Onset: 06-09-2023 06-09-2023 Chronic Other nutritional; endocrine; and metabolic disorders (1 source) Obesity, unspecified; Translations: [Obesity (BMI 30.0-34.9)] Onset: 06-09-2023 Chronic Residual codes; unclassified (3 sources) Hallucinations; Translations: [Hallucinations, unspecified] 05-04-2021 Episodic Residual codes; unclassified (7 sources) History of operative procedure on hip; Translations: [Other specified postprocedural states] 06-30-2023 Episodic Respiratory failure; insufficiency; arrest (adult) (3 sources) Acute respiratory failure; Translations: [Acute respiratory failure with hypoxia] 04-21-2021 Episodic Spondylosis; intervertebral disc disorders; other back problems (5 sources) Other intervertebral disc displacement, lumbar region; 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] 04-25-2023 Chronic Sprains and strains (5 sources) Acetabular labrum tear; Translations: [Other sprain of right hip, initial encounter] Onset: 11-29-2023 10-04-2023 Episodic Viral infection (6 sources) COVID-19; Translations: [Pneumonia due to COVID-19 virus] 04-21-2021 Episodic Past or Other Problems Problem Classification Problem Date Documented Date Episodic/Chronic Residual codes; unclassified (3 sources) Other specified postprocedural states; Translations: [Status post hip surgery] Onset: 06-14-2023 Episodic Results Test Name Value Interpretation Reference Range Facility Absolute lymphocyte countOrd ered By: Benigno Zaragoza on 09-17-2024 Lymphocytes Auto (Unsp spec) [#/Vol] 2.70 10*3/uL 0.83-4.51 [facility] Absolute neutrophil countOrd ered By: Benigno Zaragoza on 09-17-2024 Neutrophils (Bld) [#/Vol] 2.6 10*3/uL 2.0-7.7 [facility] Anion gap in Serum or Plasma Ordered By: Benigno Zaragoza on 09-17-2024 Anion gap [Moles/Vol] 11 mmol/L - [facility] Automated lymphocyte count a s percentage of total leukocytesOrdered By: Benigno Zaragoza on 09-17-2024 Lymphocytes/100 WBC Auto (Unsp spec) 46.2 % High - [facility] BUN/creatinine ratioOrdered By: Benigno Zaragoza on 09-17-2024 Urea nitrogen/Creatinine [Mass ratio] 12.5 mg/mg 10- [facility] Basophil percentageOrdered B y: Benigno Zaragoza on 09-17-2024 Basophils/100 WBC (Bld) 0.5 % 0-1 [facility] Bilirubin, totalOrdered By: Benigno Zaragoza on 09-17-2024 Bilirubin [Mass/Vol] 0.66 mg/dL 0.00-1.30 [facility] CBC W/Diff, Automatedon 09-05 Absolute Lymph 2.70 X10 3/uL Normal 0.83-4.51 [facility] Comment on above: Performed By: #### L 500.4100, L500.4050, L100.0100 ####[facility] [address] [place], [address] Absolute Neut 2.6 X10 3/uL Normal 2.0-7.7 [facility] Comment on above: Performed By: #### L 500.4100, L500.4050, L100.0100 ####[facility] [address] [place], [address] Basophils/100 WBC (Bld) 0.5 % Normal 0-1 [facility] Comment on above: Performed By: #### L 500.4100, L500.4050, L100.0100 ####[facility] [address] [place], [address] Eosinophils/100 WBC (Bld) 1.5 % Normal 0-5 [facility] Comment on above: Performed By: #### L 500.4100, L500.4050, L100.0100 ####[facility] [address] [place], [address] Erythrocyte distribution width (RBC) [Ratio] 12.3 % Normal 11.6-14.6 [facility] Comment on above: Performed By: #### L 500.4100, L500.4050, L100.0100 ####[facility] [address] [place], [address] Hematocrit (Bld) [Volume fraction] 44.4 % Normal 40-54 [facility] Comment on above: Performed By: #### L 500.4100, L500.4050, L100.0100 ####[facility] [address] [place], [address] Hemoglobin (Bld) [Mass/Vol] 15.2 g/dL Normal 13.0-16.5 [facility] Comment on above: Performed By: #### L 500.4100, L500.4050, L100.0100 ####[facility] [address] [place], [address] IG% 0.200 Normal 0.0-0.9 [facility] Comment on above: Result Comment: IG% - Immature Granulocytes (promyelocytes, myelocytes and metamyelocytes) > 1% indicates that a LEFT SHIFT is Present. Performed By: #### L 500.4100, L500.4050, L100.0100 ####[facility] [address] [place], [address] Lymphocytes/100 WBC (Bld) 46.2 % High 19-41 [facility] Comment on above: Performed By: #### L 500.4100, L500.4050, L100.0100 ####[facility] [address] [place], [address] MCH (RBC) [Entitic mass] 32.2 pg High 27.0-32.0 [facility] Comment on above: Performed By: #### L 500.4100, L500.4050, L100.0100 ####[facility] [address] [place], [address] MCHC (RBC) [Mass/Vol] 34.2 g/dL Normal 32-36 [facility] Comment on above: Performed By: #### L 500.4100, L500.4050, L100.0100 ####[facility] [address] [place], [address] MCV (RBC) [Entitic vol] 94.1 fL High 80-94 [facility] Comment on above: Performed By: #### L 500.4100, L500.4050, L100.0100 ####[facility] [address] [place], [address] Monocytes/100 WBC (Bld) 8.0 % Normal 0-10 [facility] Comment on above: Performed By: #### L 500.4100, L500.4050, L100.0100 ####[facility] [address] [place], [address] Neutrophils/100 WBC (Bld) 43.6 % Low 47-70 [facility] Comment on above: Performed By: #### L 500.4100, L500.4050, L100.0100 ####[facility] [address] [place], [address] Nucleated RBC (Bld) [#/Vol] 0 10*3/uL Normal 0-5 [facility] Comment on above: Performed By: #### L 500.4100, L500.4050, L100.0100 ####[facility] [address] [place], [address] Platelet mean volume (Bld) [Entitic vol] 10.7 fL Normal 6.2-12.0 [facility] Comment on above: Performed By: #### L 500.4100, L500.4050, L100.0100 ####[facility] [address] [place], [address] Platelets (Bld) [#/Vol] 272 10*3/uL Normal 150-450 [facility] Comment on above: Performed By: #### L 500.4100, L500.4050, L100.0100 ####[facility] [address] [place], [address] RBC (Bld) [#/Vol] 4.72 10*6/uL Normal 4.6-6.2 [facility] Comment on above: Performed By: #### L 500.4100, L500.4050, L100.0100 ####[facility] [address] [place], [address] RDW SD 42.8 fl Normal 35.1-43.9 [facility] Comment on above: Performed By: #### L 500.4100, L500.4050, L100.0100 ####[facility] [address] [place], [address] WBC (Bld) [#/Vol] 5.9 10*3/uL Normal 4.4-11.[address] [facility] Comment on above: Performed By: #### L 500.4100, L500.4050, L100.0100 ####[facility] [address] [place], [address] Calculated very low density lipoprotein (VLDL) cholesterol measurementOrdered By: Benigno Zaragoza on 09-17-2024 Calculated very low density lipoprotein (VLDL) cholesterol measurement 12 mg/dL 5-40 [facility] Carbon dioxide, total [Moles /volume] in Central venous bloodOrdered By: Benigno Zaragoza on 09-17-2024 CO2 [Moles/Vol] 23.8 mmol/L 21.0-32.0 [facility] Chloride assayOrdered By: Karthik Zaragoza on 09-17-2024 Chloride [Moles/Vol] 106 mmol/L 98-108 [facility] Comprehensive Metabolic Prof ilon 09-17-2024 Albumin [Mass/Vol] 4.7 g/dL Normal 3.5-5.[address] [facility] Comment on above: Performed By: #### L 500.4100, L500.4050, L100.0100 ####[facility] [address] [place], [address] Albumin/Globulin [Mass ratio] 1.9 {ratio} Normal 0.9-2.4 [facility] Comment on above: Performed By: #### L 500.4100, L500.4050, L100.0100 ####[facility] [address] [place], [address] ALK PHOS 67 U/L Normal 40-129 [facility] Comment on above: Performed By: #### L 500.4100, L500.4050, L100.0100 ####[facility] [address] [place], [address] ALT [Catalytic activity/Vol] 113 U/L High <=46 [facility] Comment on above: Performed By: #### L 500.4100, L500.4050, L100.0100 ####[facility] [address] [place], [address] AST [Catalytic activity/Vol] 101 U/L High <=37 [facility] Comment on above: Performed By: #### L 500.4100, L500.4050, L100.0100 ####[facility] [address] [place], [address] Bilirubin [Mass/Vol] 0.66 mg/dL Normal 0.00-1.30 [facility] Comment on above: Performed By: #### L 500.4100, L500.4050, L100.0100 ####[facility] [address] [place], [address] BUN/CRE 12.5 RATIO Normal 10-20 [facility] Comment on above: Performed By: #### L 500.4100, L500.4050, L100.0100 ####[facility] [address] [place], [address] Calcium [Mass/Vol] 9.3 mg/dL Normal 7.6-11.[address] [facility] Comment on above: Performed By: #### L 500.4100, L500.4050, L100.0100 ####[facility] [address] [place], [address] Chloride [Moles/Vol] 106 mmol/L Normal 98-108 [facility] Comment on above: Performed By: #### L 500.4100, L500.4050, L100.0100 ####[facility] [address] [place], [address] CO2 [Moles/Vol] 23.8 mmol/L Normal 21.0-32.0 [facility] Comment on above: Performed By: #### L 500.4100, L500.4050, L100.0100 ####[facility] [address] [place], [address] Creatinine [Mass/Vol] 0.96 mg/dL Normal 0.70-1.20 [facility] Comment on above: Performed By: #### L 500.4100, L500.4050, L100.0100 ####[facility] [address] [place], [address] GAP 11 Normal 5-15 [facility] Comment on above: Performed By: #### L 500.4100, L500.4050, L100.0100 ####[facility] [address] [place], [address] GFR/1.73 sq M.predicted among non-blacks MDRD (S/P/Bld) [Vol rate/Area] 100 mL/min/{1.73_m2} Normal >60 [facility] Comment on above: Result Comment: mL/m in/1.73m2 CKD-EPI Creatinine Equation (2020) Performed By: #### L 500.4100, L500.4050, L100.0100 ####[facility] [address] [place], [address] Globulin (S) [Mass/Vol] 2.5 g/dL Normal 2.2-4.2 [facility] Comment on above: Performed By: #### L 500.4100, L500.4050, L100.0100 ####[facility] [address] [place], [address] Glucose [Mass/Vol] 98 mg/dL Normal 70-[address] [facility] Comment on above: Performed By: #### L 500.4100, L500.4050, L100.0100 ####[facility] [address] [place], [address] Potassium [Moles/Vol] 3.7 mmol/L Normal 3.3-5.1 [facility] Comment on above: Performed By: #### L 500.4100, L500.4050, L100.0100 ####[facility] [address] [place], [address] Sodium [Moles/Vol] 140 mmol/L Normal 133-[address] [facility] Comment on above: Performed By: #### L 500.4100, L500.4050, L100.0100 ####[facility] [address] [place], [address] T PROT 7.2 g/dL Normal 5.9-8.4 [facility] Comment on above: Performed By: #### L 500.4100, L500.4050, L100.0100 ####[facility] [address] [place], [address] Urea nitrogen [Mass/Vol] 12 mg/dL Normal 4-19 [facility] Comment on above: Performed By: #### L 500.4100, L500.4050, L100.0100 ####[facility] [address] [place], [address] Eosinophil percentageOrdered By: Benigno Zaragoza on 09-17-2024 Eosinophils/100 WBC (Bld) 1.5 % 0-5 [facility] Erythrocyte distribution wid th ratioOrdered By: Benigno Zaragoza on 09-17-2024 Erythrocyte distribution width (RBC) [Ratio] 12.3 % 11.6-14.6 [facility] Erythrocyte distribution wid th standard deviationOrdered By: Benigno Zaragoza on 09-17-2024 Erythrocyte distribution width (RBC) [Ratio] 42.8 fl 35.1-43.9 [facility] Glomerular filtration rate ( GFR) estimation/1.73 sq m using serum, plasma, or whole bOrdered By: Benigno Zaragoza on 09-17-2024 GFR/1.73 sq M.predicted among non-blacks MDRD (S/P/Bld) [Vol rate/Area] 100 mL/min/{1.73_m2} >60 [facility] Comment on above: mL/min/1.73m2 CKD-EP I Creatinine Equation (2020) Hematocrit Auto (Bld) [Volum e fraction]Ordered By: Benigno Zaragoza on 09-17-2024 Hematocrit (Bld) [Volume fraction] 44.4 % 40-54 [facility] Hemoglobin measurementOrdere d By: Benigno Zaragoza on 09-17-2024 Hemoglobin (Bld) [Mass/Vol] 15.2 g/dL 13.0-16.5 [facility] Immature granulocytes/100 WB C Auto (Bld)Ordered By: Benigno Zaragoza on 09-17-2024 Immature granulocytes/100 WBC (Bld) 0.200 % 0.0-0.9 [facility] Comment on above: IG% - Immature Granu locytes (promyelocytes, myelocytes and metamyelocytes) > 1% indicates that a LEFT SHIFT is Present. LDL calc ser/plasOrdered By: Benigno Zaragoza on 09-17-2024 Cholesterol in LDL [Mass/Vol] 133 mg/dL [facility] Comment on above: Vrlkazgwyy=361-421 m g/dL & Higher Cmme=854 mg/dL or greater Laboratory - Chemistry and C hemistry - challengeOrdered By: Benigno Zaragoza on 09-17-2024 AST [Catalytic activity/Vol] 101 U/L High <38 [facility] Lipid Profileon 09-17-2024 CHOL:HDL 4.95 Normal [facility] Comment on above: Performed By: #### L 500.4100, L500.4050, L100.0100 ####[facility] [address] [place], [address] Cholesterol [Mass/Vol] 181 mg/dL Normal <=200 [facility] Comment on above: Result Comment: Chol esterol level, Desirable <200 mg/dL Borderline high cholesterol 200-239 mg/dL High cholesterol >=240 mg/dL Recommendations of the NCEP Adult Treatment Panel for the following risk-cutoff thresholds for the [place] population. Performed By: #### L 500.4100, L500.4050, L100.0100 ####[facility] [address] [place], [address] Cholesterol in HDL [Mass/Vol] 37 mg/dL Low [facility] Comment on above: Result Comment: Sondra onal Cholesterol Education Program (NCEP) guidelines: <40 mg/dL: Low HDL-cholesterol (major risk factor for CHD) >= 60 mg/dL: High HDL-cholesterol (negative risk factor for CHD) HDL-cholesterol is affected by a number of factors, e.g. smoking, exercise, hormones, sex and age. Performed By: #### L 500.4100, L500.4050, L100.0100 ####[facility] [address] [place], [address] Cholesterol in LDL [Mass/Vol] 133 mg/dL Normal [facility] Comment on above: Result Comment: Bord qzqond=441-415 mg/dL Higher Oamg=243 mg/dL or greater Performed By: #### L 500.4100, L500.4050, L100.0100 ####[facility] [address] [place], [address] Cholesterol in VLDL [Mass/Vol] 12 mg/dL Normal 5-40 [facility] Comment on above: Performed By: #### L 500.4100, L500.4050, L100.0100 ####[facility] [address] [place], [address] Triglyceride [Mass/Vol] 59 mg/dL Normal [facility] Comment on above: Result Comment: The drugs N-Acetylcysteine and Metamizole may falsely depress this assay. Normal range: <150 mg/dL Borderline High: 150-199 mg/dL High: 200-499 mg/dL Very High: >500 mg/dL Performed By: #### L 500.4100, L500.4050, L100.0100 ####[facility] [id number] [place], [address] MCV (mean corpuscular volume ) determinationOrdered By: Benigno Zaragoza on 09-17-2024 MCV (RBC) [Entitic vol] 94.1 fL High 80-94 [facility] Mean corpuscular hemoglobin (MCH) determinationOrdered By: Benigno Zaragoza on 09-17-2024 MCH (RBC) [Entitic mass] 32.2 pg High 27.0-32.0 [facility] Mean corpuscular hemoglobin concentration (MCHC) determinationOrdered By: Benigno Zaragoza on 09-17-2024 MCHC (RBC) [Mass/Vol] 34.2 g/dL 32-36 [facility] Mean platelet volume determi nationOrdered By: Benigno Zaragoza on 09-17-2024 Platelet mean volume (Bld) [Entitic vol] 10.7 fL 6.2-12.0 [facility] Monocyte percentageOrdered B y: Benigno Zaragoza on 09-17-2024 Monocytes/100 WBC (Bld) 8.0 % 0-10 [facility] Neutrophil percentageOrdered By: Benigno Zaragoza on 09-17-2024 Neutrophils/100 WBC (Bld) 43.6 % Low 47-70 [facility] Nucleated red blood cell per centageOrdered By: Benigno Zaragoza on 09-17-2024 Nucleated RBC/100 WBC (Bld) [Ratio] 0 % 0-5 [facility] Platelet countOrdered By: Karthik Zaragoza on 09-17-2024 Platelets (Bld) [#/Vol] 272 10*3/uL 150-450 [facility] Potassium measurement (mass/ volume)Ordered By: Benigno Zaragoza on 09-17-2024 Potassium (Unsp spec) [Mass/Vol] 3.7 mmol/L 3.3-5.1 [facility] RBC Auto (Bld) [#/Vol]Ordere d By: Benigno Zaragoza on 09-17-2024 RBC (Bld) [#/Vol] 4.72 10*6/uL 4.6-6.2 [facility] Screening total cholesterol/ high density lipoprotein (HDL) cholesterol ratioOrdered By: Benigno Zaragoza on 09-17-2024 Cholesterol.total/Choles terol in HDL [Mass ratio] 4.95 {ratio} [facility] Serum creatinine measurement (mass/volume)Ordered By: Benigno Zaragoza on 09-17-2024 Creatinine [Mass/Vol] 0.96 mg/dL 0.70-1.20 [facility] Serum globulin measurementOr dered By: Benigno Zaragoza on 09-17-2024 Globulin (S) [Mass/Vol] 2.5 g/dL 2.2-4.2 [facility] Serum glucose measurement (m ass/volume)Ordered By: Benigno Zaragoza on 09-17-2024 Glucose [Mass/Vol] 98 mg/dL 70-[address] [facility] Serum or plasma alanine bowen otransferase (ALT) measurementOrdered By: Benigno Zaragoza on 09-17-2024 ALT [Catalytic activity/Vol] 113 U/L High <47 [facility] Serum or plasma albumin sourav urement (mass/volume)Ordered By: Benigno Zaragoza on 09-17-2024 Albumin [Mass/Vol] 4.7 g/dL 3.5-5.[address] [facility] Serum or plasma albumin/glob ulin mass ratioOrdered By: Benigno Zaragoza on 09-17-2024 Albumin/Globulin [Mass ratio] 1.9 {ratio} 0.9-2.4 [facility] Serum or plasma alkaline kelsie sphatase measurementOrdered By: Benigno Zaragoza on 09-17-2024 ALP [Catalytic activity/Vol] 67 U/L 40-129 [facility] Serum or plasma calcium sourav urement (mass/volume)Ordered By: Benigno Zaragoza on 09-17-2024 Calcium [Mass/Vol] 9.3 mg/dL 7.6-11.[address] [facility] Serum or plasma cholesterol in HDL measurement (mass/volume)Ordered By: Benigno Zaragoza on 09-17-2024 Cholesterol in HDL [Mass/Vol] 37 mg/dL Low >40 [facility] Comment on above: National Cholesterol Education Program (NCEP) guidelines:<40 mg/dL: Low HDL-cholesterol (major risk factor for CHD)>= 60 mg/dL: High HDL-cholesterol (negative risk factor for CHD)HDL-cholesterol is affected by a number of factors, e.g. smoking, exercise, hormones, sex and age. Serum or plasma cholesterol measurement (mass/volume)Ordered By: Benigno Zaragoza on 09-17-2024 Cholesterol [Mass/Vol] 181 mg/dL <201 [facility] Comment on above: Cholesterol level, D esirable <200 mg/dLBorderline high cholesterol 200-239 mg/dLHigh cholesterol >=240 mg/dLRecommendations of the NCEP Adult Treatment Panel for the following risk-cutoff thresholds for the [place] population. Serum or plasma urea nitroge n measurement (mass/volume)Ordered By: Benigno Zaragoza on 09-17-2024 Urea nitrogen [Mass/Vol] 12 mg/dL 4-19 [facility] Sodium levelOrdered By: Benigno Zaragoza on 09-17-2024 Sodium [Moles/Vol] 140 mmol/L 133-[address] [facility] Total proteinOrdered By: Vivian Zaragoza on 09-17-2024 Protein [Mass/Vol] 7.2 g/dL 5.9-8.[address] [facility] Triglycerides measurementOrd ered By: Benigno Zaragoza on 09-17-2024 Triglyceride [Mass/Vol] 59 mg/dL <199 [facility] Comment on above: The drugs N-Acetylcy steine and Metamizole may falsely depress this assay. Normal range: <150 mg/dLBorderline High: 150-199 mg/dLHigh: 200-499 mg/dLVery High: >500 mg/dL White blood cell (WBC) count Ordered By: Benigno Zaragoza on 09-17-2024 WBC (Bld) [#/Vol] 5.9 10*3/uL 4.4-11.[address] [facility] XR Pelvis and Hip - right AP and Lateral frogon 02-01-2024 IMPRESSION: Right total hip arthroplasty without complication. Legal Arbitrator: PSCB Transcribe Date/Time: Feb 01 2024 5:01P Dictated by : ALEXANDRU DYE MD This examination was interpreted and the report reviewed and electronically signed by: ALEXANDRU DYE MD on Feb 01 2024 5:01PM EST DIVISION OF RADIOLOGY * * *Final Report* * * DATE OF EXAM: Feb 01 2024 12:18PM CCX 5352 - XR HIP 3V PELV+ AP/LAT RT / PROCEDURE REASON: multiple diagnoses * * * * Physician Interpretation * * * * EXAMINATION / TECHNIQUE: XR HIP 3V PELV+ AP/LAT RT HISTORY: post op Avascular necrosis of bone of hip, right (HCC) Bilateral hip pain Bilateral hip pain Status post hip surgery COMPARISON: 12/22/2023 RESULT: Postoperative changes of right total hip arthroplasty. Hardware is intact without evidence of failure or loosening. Bony alignment is unchanged. Postoperative soft tissue gas has resolved. Unchanged left femoral head avascular necrosis. DIVISION OF RADIOLOGY Provider, [facility] - 02/01/2024 * * *Final Report* * * DATE OF EXAM: Feb 01 2024 12:18PM CCX 5352 - XR HIP 3V PELV+ AP/LAT RT / PROCEDURE REASON: multiple diagnoses * * * * Physician Interpretation * * * * EXAMINATION / TECHNIQUE: XR HIP 3V PELV+ AP/LAT RT HISTORY: post op Avascular necrosis of bone of hip, right (HCC) Bilateral hip pain Bilateral hip pain Status post hip surgery COMPARISON: 12/22/2023 RESULT: Postoperative changes of right total hip arthroplasty. Hardware is intact without evidence of failure or loosening. Bony alignment is unchanged. Postoperative soft tissue gas has resolved. Unchanged left femoral head avascular necrosis. IMPRESSION IMPRESSION: Right total hip arthroplasty without complication. Legal Arbitrator: PSCB Transcribe Date/Time: Feb 01 2024 5:01P Dictated by : ALEXANDRU DYE MD This examination was interpreted and the report reviewed and electronically signed by: ALEXANDRU DYE MD on Feb 01 2024 5:01PM EST [facility] Radiology Study observation (narrative) [facility] XR Pelvis and Hip - right AP and Lateral frogOrdered By: [facility] Provider on 02-01-2024 [facility] Inital Evaluation (1) - PTon 01-19-2024 Inital Evaluation (1) - PT [facility] Physical Therapy [facility] [address] [place] [address] / REHABILITATION SERVICES INITIAL EVALUATION MR#: [id number] Acct: [id number] Name: THOMAS MATIAS Rep #: [id number] : 1980 43 From: Aris Segal DPT Referring Dr.: GABINO BERG Status: REG RCR Insurance: [employer] SELF PAY INSURANCE Patient's Visit Information Visit Information Visit Information: THOMAS MATIAS is a 43 year old M referred to Physical Therapy by GABINO BERG with a diagnosis of R JASPREET DOS: 12/29/23. Date of Evaluation: 01/12/24 Physical Therapist: Aris Segal DPT Visit Plan Frequency: 1x/Week Duration: 6 Weeks Plan: Start with core and hip strengthening. Add in functional strengthening. Stretching as tolerated of R hip. Hip procautions. Subjective Subjective: Pt reports 2 weeks post-op R JASPREET due to avascular necrosis bilaterally. He also states he will have to have the L hip replaced at some point. Pt reports taking Tylenol for pain. More pain in the L hip compared to the R. Pt reports prior to surgery no pain except for when ambulating and going up/down stairs. Pt reports initial pain felt like a strained hip flexor but then the pain got worse. No R hip ext, IR, or ER due to anterior approach. Pt reports limitations with running, ascending/descending stairs, squatting, and light recreational activities with kids. Pt reports limitations when laying on both his sides when trying to sleep, prefers to sleep supine. Pt reports no numbness or tingling. Pain when at rest 1/10 is and pain at worst is 3/10. Pt reports initial pain when standing up but will go away once ambulating. Objective Objective: Sensation: normal DTR: normal throughout B LEs. MMT: LLE: knee: ext 65.6#, flexion: 31.5#. RLE: knee: ext 43.4#, flexion: 27.4#. ROM: R hip: flexion 80deg, HS length 75deg. L hip: flexion 110deg. , HS length 75sdeg. gait: fairly normal slight lateral hip translation, but no Trendelenburg. STAIRS: repriprocal pattern, but more difficulty with WBIng through her RLE. TU.1sec without AD Goals Goal 1:: LTG: Pt. to be I with HEP. Goal Time Frame: 4-6 Weeks Goal 2:: LTG: Pt. to complete TUG with less than 10seconds without AD. Goal Time Frame: 2-4 Weeks Goal 3:: LTG: Pt. to have symmetrical strength between BLEs. Goal Time Frame: 4-6 Weeks Goal 4:: LTG: pt. to ambulate without AD for unlimited distances. Goal Time Frame: 4-6 Weeks Rehabilitation Potential Physical Therapy Diagnosis: Pt. has signs and symptoms consistent with R JASPREET. Pt. has some R LE weakness, hypomobilty in his RLE and difficulty with walking. Pt. would benefit from PT to address the above limitations progressing back to all previous levels of function. Rehabilitation Potential: Excellent Anticipated Interventions Patient/Client Instruction: Educate patient on: Condition, Plan of Care, Risk Factors and Benefits of Fitness Program For the Purpose of:: To foster healthy habits, To improve decision making, To facilitate caregiver knowledge, To improve self management, To prevent re-injury and To improve ability to perform tasks related to life management Therapeutic Exercise to Include: Strength training, Power training, Coordination, Flexibilty training, Gait and locomotor training, Passive ROM and Active ROM For the Purpose of:: To decrease pain, To increase ROM, To improve nutrient delivery to tissue, To increase oxygenation perfusion and To improve muscle performance and motor function Text: Thank you for the opportunity to evaluate your patient. For Medicare and Medicare HMO plans, please review the plan of care and approve it. It will need to be FAXED BACK to us at [phone] for Medicare purposes. For Medicare only, by signing this I certify the plan of care. Please let me know if there are questions or concerns regarding this plan of care. Physician Signature: Date:__ 01/19/24 1026 CC: GABINO BERG; Dr. Carine Moreno DO CLS Signed Normal [facility] ANES POSTPROC EVALon 024 ANES POSTPROC EVAL HNO ID: [id number] Author: SHERRELL MARTINES MD Service: ? Author Type: Anesthesiologist Type: Anesthesia Postprocedure Evaluation Filed: 12/22/2023 10:56 Note Text: POST ANESTHESIA EVALUATION NOTE : 1980 Procedure Summary Date: 12/22/23 Room / Location: [place] [address] / OR Anesthesia Start: 729 Anesthesia Stop: 844 Procedure: ROBOTIC ASSISTED ANTERIOR TOTAL HIP ARTHROPLASTY (Right: Hip) Diagnosis: Avascular necrosis of bone of hip, right (HCC) Bilateral hip pain Status post hip surgery Pre-op testing Tear of right acetabular labrum, initial encounter (Avascular necrosis of bone of hip, right (HCC) [M87.051]) (Bilateral hip pain [M25.551, M25.552]) (Status post hip surgery [Z98.890]) (Pre-op testing [Z01.818]) (Tear of right acetabular labrum, initial encounter [S73.191A]) Surgeons: Gabino Berg MD Responsible Provider: Sherrell Martines MD Anesthesia Type: spinal ASA Status: 2 Anesthesia Type: spinal Last Vitals Vitals Value Taken Time BP 126/85 12/22/23 0945 Temp 36.2 ?C (97.1 ?F) 12/22/23 0945 HR SpO2 60 12/22/23 0958 Resp 15 12/22/23 0958 SpO2 99 % 12/22/23 0958 Vitals shown include unfiled device data. Post Anesthesia Patient Status Patient Evaluation: bedside. Anticipated Disposition: phase 2 then home. Neurological Status: aware and responsive. Pulmonary Status: breathing comfortably on room air Airway Control: returned to baseline unsupported. Cardiovascular Status: stable. Pain Management: clinically adequate Postoperative Hydration: acceptable. Intraoperative Events: no significant anesthesia events Post Operative Nausea/Vomiting Status: no significant post operative nausea or vomiting Recommendation: continue current plan of care. Anesthesia Observations No Documentation SIGNATURE: Sherrell Martines MD PATIENT NAME: Thomas Matias DATE: December 22, 2023 TIME: 10:56 AM CSN: [id number] [facility] ANES PRE-OPon 12-22-2023 ANES PRE-OP HNO ID: [id number] Author: SHERRELL MARTINES MD Service: ? Author Type: Anesthesiologist Type: Anesthesia Preprocedure Evaluation Filed: 12/22/2023 07:28 Note Text: ANESTHESIOLOGY DAY OF SURGERY NOTE : 1980 Procedure Information Date/Time: 12/22/23729 Procedure: ROBOTIC ASSISTED ANTERIOR TOTAL HIP ARTHROPLASTY (Right: Hip) - Ivette JASPREET, [place] Table, Fluoro same day Location: [place] [address] / OR Surgeons: Gabino Berg MD Estimated body mass index is 32.43 kg/m? as calculated from the following: Height as of 12/08/23: 175.3 cm (5' 9). Weight as of 12/08/23: 99.6 kg (219 lb 9.3 oz). Most recent hematocrit and potassium results: Hematocrit 43.4 12/08/2023 Potassium 4.1 12/08/2023 Relevant Problems No relevant active problems I - PHYSICAL EVALUATION AIRWAY Patient intubated: No. Tracheostomy tube not present Mallampati: II. TM distance: >3 FB. Neck ROM: full ROM without neurological symptoms. Mouth opening: adequate. Short neck: no. Thick neck: no Cerrato present: no DENTAL Dental findings: teeth intact. Additional exam findings: yes. CARDIOVASCULAR Rhythm: regular Rate: normal PULMONARY Breath sounds clear to auscultation. II - ANESTHESIA PLAN ASA Score: 2 Anesthetic Plan: spinal The patient is not a current smoker. NPO Status: adequate Beta Liana Monitoring Plan Monitoring plan: standard ASA. Post Procedure Analgesic Plan Postoperative analgesic plan: multimodal analgesia. Informed Consent Anesthetic risks, benefits, alternatives, personnel and consent discussed: yes. Patient / Responsible Libertarian agrees to proceed: yes Patient / Surrogate agrees to blood products: Yes DNR status not reviewed with patient and/or family prior to surgery. Significant changes in the patient condition since the History and Physical, not otherwise documented in primary service progress note: no. Vitals Value Taken Time BP 160/103 12/22/23 0720 Pulse 71 12/22/23 0725 Resp 23 12/22/23 0725 Temp 36.4 ?C (97.5 ?F) 12/22/23 0615 SpO2 100 % 12/22/23 0725 Vitals shown include unfiled device data. Facility-Administered Medications as of 12/22/2023 Medication Dose Route Frequency lidocaine (PF) 10 mg/mL (1 %) 1-2 mg injection (XYLOCAINE) 0.1-0.2 mL INTRADERMAL PRN lactated ringers iv infusion 5-30 mL/hr INTRAVENOUS CONTINUOUS NaCl 0.9% iv flush bag 20 mL INTRAVENOUS PRN ceFAZolin iv piggyback 2 g in D5W (iso-osmotic) 100 mL (ANCEF) 2 g INTRAVENOUS Pre-Op Once tranexamic acid (CYKLOKAPRON) in NaCl 0.7% 1,000 mg 100 mL 1,000 mg INTRAVENOUS Pre-Op Once tranexamic acid (CYKLOKAPRON) in NaCl 0.7% 1,000 mg 100 mL 1,000 mg INTRAVENOUS ONCE No current outpatient medications on file as of 12/22/2023. I have interviewed and examined the patient. I have reviewed the medical record and/or the pre-anesthesia evaluation, pertinent labs, and test results. This contains updated information obtained within 48 hours of Surgery/Procedure. SIGNATURE: Sherrell Martines MD PATIENT NAME: Thomas Matias DATE: December 22, 2023 TIME: 7:28 AM CSN: [id number] [facility] NURSING PROGon 12-22-2023 NURSING PROG HNO ID: [id number] Author: JACKLYN GRIFFITH RN Service: ? Author Type: Registered Nurse Type: Nursing Progress Note Filed: 12/26/2023 10:39 Note Text: TOTAL JOINT COMPLETE CARE PROGRAM DISCHARGE FOLLOW-UP PHONE CALL Phone Call Date: 12/23/2023 Phone Call Time: 1100 Date of Surgery: 12/22/2023 Procedure: Right Total Hip Replacement FOLLOW-UP QUESTIONS: Did you receive adequate written instructions upon discharge? Yes Do you have your follow-up appointment schedule? YES Is your pain controlled with current medication regimen? YES Current Pain level out of 10: 3 If you are able to see your incision, is there any increased drainage? NO Any increased swelling? NO Any increased redness? NO If your dressing is still on, do you know when to remove it? yes Do you have any of the following new/worsening symptoms? None Have you contacted your surgeon's office about these symptoms? NO Patient doing great at home. Reviewed medications. [facility] coming at 1400. All questions and concerns answered SIGNATURE: Jacklyn Griffith RN PATIENT NAME: Thomas Matias DATE: December 26, 2023 TIME: 10:38 AM PAGER/CONTACT #: [phone] [facility] OPERATIVE NOon 12-22-2023 OPERATIVE NO HNO ID: [id number] Author: GABINO BERG MD Service: Orthopaedic Surgery Author Type: Physician Type: Operative Report Filed: 12/22/2023 09:17 Note Text: ORTHO OPERATIVE REPORT LOG ID: [id number] Surgery/Procedure Date: 12/22/2023 Incision/Procedure Start Time: 7:46 AM Incision Close/Procedure End Time: 8:33 AM Surgeon(s)/Procedurali st(s) and Glass Blower(s): Surgeon(s) and Role: * Gabino Berg MD - Primary Physician Glass Blower: Ousmane Kelly PA-C; Grecia Bashir PA-C Pre-Op/Pre-Procedure Diagnosis: Right hip pain (M25.55) Osteoarthritis of Right hip, 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 (M87.0) Post-Op/Post-Procedure Diagnosis: Right hip pain (M25.55) Osteoarthritis of Right hip, 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 After discussion of the risks and benefits of surgery, the patient elected for surgical intervention to relieve pain and to improve function. The patient received appropriate pre-operative risk stratification. Informed consent was performed: risks discussed included but were not limited to medical complications, deep venous thrombosis, dislocation, intra-operative and/or post-operative fracture, infection, leg-length discrepancy, hardware failure, aseptic loosening, and wear of the bearing. Surgical and blood consents were obtained and signed. Procedure: In the pre-operative holding area, the patient was identified, and the Right lower operative extremity was confirmed by myself and marked with my initials, using a permanent marker. The patient was then brought to the operating room and positioned supine. All bony prominences were well-padded. Anesthesia was administered, and appropriate pre-operative antibiotics were given. AGA stocking was placed on the contralateral limb; traction boots obviated the ability to place sequential compression devices intra-operatively (SCDs were placed immediately post-operatively while still in the operating room). Following satisfactory induction of anesthesia, both feet were placed in boots for the [place] table. The limb was prepped and draped in the usual sterile fashion. Before any surgical instrumentation was passed to al by the surgical technology instructor, a formalized time-out occurred, which involves the surgeon, circulating nurse, andanesthesia staff all verifying the correct operative extremity. The initials of a surgeon on the operative team were visible on the prepped and draped operative field. An incision was made, starting approximately 2 cm lateral and 1 cm distal to the anterior-superior iliac spine, extending diagonally in line with the femoral shaft. Electrocautery was used to dissect through the subcutaneous tissue. The fascia overlying the tensor fascia clau (TFL) was incised in line with its fibers. A Astorga elevator was used to elevate the fascia from the TFL. A finger then was placed along the superior femoral neck, and the Zoila retractor was placed. A Meyerding retractor was used to retract the TFL laterally. A Hohmann retractor was placed on the inferior femoral neck. Then using electrocautery and a Schnidt, the ascending branch of the circumflex vessel was ligated. The investing fascia over the capsule was divided, and another Zoila retractor was placed inferior to the femoral neck. The pericapsular fat was then excised from around the anterior hip capsule. The anterior hip capsule was then incised withelectrocautery starting at the edge of the acetabulum in line with the femoral neck and then the femoral shaft, dividing the capsule at about a 135-degree angle. The Zoila retractors were placed inside the capsule. A benigno was made on the femoral neck in line with the planned femoral neck resection. The level of resection was checked with fluoroscopy which was confirmed as being appropriate. Digital registration of the pelvis was performed for the robotic workflow. An oscillating saw was used to complete the femoral neck osteotomy. A spiral femoral hip screw was placed in the femoral head, and the femoral head was removed from the wound. The No. 1 retractor was then placed to the anterior aspect of the acetabulum. The No. 2 retractor was placed posteriorly. This exposed the acetabulum. Electrocautery was then used to excise the labrum and pulvinar. Fluoroscopy was utilized to obtain a perfect AP pelvis radiograph and mirroring correspo (more content not included)... [facility] THERAPY NTon 12-22-2023 THERAPY NT HNO ID: [id number] Author: TIFFANI GOVEA OT/L Service: Occupational Therapy Author Type: Occupational Therapist Type: Therapy (PT/OT/Speech/Resp) Filed: 12/22/2023 12:53 Note Text: Occupational Therapy Evaluation Summary SERVICE DATE: 12/22/2023 SERVICE TIME: 1145 to 1200 ROOM: Surgery OT 6 Clicks Score: 21 Total Joint Replacement Discharge Readiness: Cleared from Occupational Therapy DISCHARGE RECOMMENDATIONS Home OT Anticipated Discharge Needs: Physical Assist at Home Physical Assist at Home for: Transportation, Shopping, Self Care, Safety, Laundry, Cleaning ASSESSMENT Response to Therapy Interventions: Low Activity Tolerance Patient was uncomfortable wearing the hip wrap. Relieved with supine position. PRECAUTIONS Anterior Hip Precautions CURRENT HOSPITAL COURSE AVN R hip, underwent Right total hip arthroplasty, Direct anterior approach, PARESH robotic-assistance - same day D/C to home anticipated. Relevant Past Medical History: AVN B/L hips HOME LIVING PRIOR FUNCTIONAL LEVEL Within Functional Limits Indep ADLs/IADLs, amb without AD, drives Baseline Cognition: Oriented to self, Oriented to place, Oriented to time, Oriented to situation SUBJECTIVE This hip wrap is really bothering me COGNITION Responsiveness: Alert, Awake Follows Commands: 3-step Commands THERAPY DIAGNOSIS Decreased activities of daily living (ADL) TREATMENT INTERVENTIONS Evaluation, Self Half-Way Management (36280) Timed Code Treatment (minutes): 0 Skilled Treatment Time (minutes): 15 TRAINING AND EDUCATION PROVIDED Activity Adaptation/Automotive Quality Engineer y Strategies, Expected Functional Level, Role of Occupational Therapy, Precautions/Restrictio ns, Positioning THERAPEUTIC SKILLS USED Activity Dosing, Cues for Sequencing/Proper Technique for Activity, Cuing Tactile, Cuing Verbal, Decongestive Exercises, Movement Facilitation, Physical Assist FUNCTIONAL STATUS Activities of Daily Living Assist Level Additional Information Feeding Independent Grooming Independent Bathing Upper Body Bathing Lower Body Dressing Upper Body Independent Dressing Lower Body Minimal Assistance Toileting Minimal Assistance Mobility Assist Level Additional Information Bed Mobility Supine To Sit: Minimal Assistance Sit To Supine: Minimal Assistance Sit to Stand Contact Guard Assistance Stand to Sit Contact Guard Assistance Bed to Chair Toilet/Commode Shower Functional Mobility GOALS Patient will demonstrate progress with self-care, cognitive and/or coping needs identified to allow safe discharge to home with available support and/or physical assistance. Demonstrate Competence with Education with: Independent Progress Toward Goals: Progressing as expected Rehab Potential: Good PLAN OT Frequency: Discontinue Therapy Services Reasons Therapy Services Discontinued: Discharged from facility Treatment Interventions: Education, Self Care/Home Management Plan for Next Visit: Standing Balance, Dressing Training, Family Instruction, IADLs/Home Management SIGNATURE: Tiffani Govea OT/L PATIENT NAME: Thomas Matias DATE: December 22, 2023 TIME: 12:52 PM [facility] THERAPY NT HNO ID: [id number] Author: CHRISTELLE ROCHE PT Service: Physical Therapy Author Type: Physical Therapist Type: Therapy (PT/OT/Speech/Resp) Filed: 12/22/2023 13:24 Note Text: Physical Therapy Evaluation Summary SERVICE DATE: 12/22/2023 SERVICE TIME: 1110 to 1142 ROOM: Surgery PT 6 Clicks Score: 20 Total Joint Replacement Discharge Readiness: Cleared from Physical Therapy DISCHARGE RECOMMENDATIONS Home PT Recommended Discharge Equipment: No equipment needs anticipated ASSESSMENT Response to Therapy Interventions: Good Participation in Activities Did well with all the instructions and was able to achieve goals for ambulation. Home PT is recommended PRECAUTIONS Anterior Hip Precautions WBAT R LE Right Lower Extremity Weight Bearing Status: WBAT CURRENT HOSPITAL COURSE AVN R hip, underwent Right total hip arthroplasty, Direct anterior approach, PARESH robotic-assistance - same day D/C to home anticipated. Relevant Past Medical History: AVN B/L hips HOME LIVING Patient Lives With: Spouse, Family Assistance Available: 24-Hour Entry To Home: Stairs, With Rail Number Of Stairs Into Home: 4 Number Of Stairs To Bed/Bath: flight with HR Stairs to Bed/Bath with: Unilateral Rail Equipment Owned: Walker- Wheeled, Crutch(es) PRIOR FUNCTIONAL LEVEL Within Functional Limits Indep ADLs/IADLs, amb without AD, drives SUBJECTIVE It just hurts but I can move. BALANCE Static Sitting Balance: Good Dynamic Sitting Balance: Good Static Standing Balance: Good Dynamic Standing Balance: Good ACTIVITY TOLERANCE Sitting Activity: EOB for exercises Standing Activity: stood and amb with a RW THERAPY DIAGNOSIS Reduced mobility-other, Difficulty walking-musculoskeleta l, Decreased activities of daily living (ADL), Muscle Weakness (generalized) TREATMENT INTERVENTIONS Evaluation, Therapeutic Exercise (71436), Gait Training (51303) Timed Code Treatment (minutes): 17 Skilled Treatment Time (minutes): 32 $ Evaluation-Low (36056) Billed Units: 1 unit Therapeutic Exercise (97473) Treatment Minutes: 7 $ Therapeutic Exercise (49510) Billed Units: 0 units Gait Training (46334) Treatment Minutes: 10 $ Gait Training (51781) Billed Units: 1 unit TRAINING AND EDUCATION PROVIDED Role of Physical Therapy, Bed Mobility, Benefits of In-Hospital Mobility, Exercise Program, Gait Pattern, Reduction of Deviations, Positioning, Precautions/Restrictio ns, Treatment Protocol Exercise Ankle Pumps (number of reps): 10 Quad Sets (number of reps): Shown hos to do this with demo and HO Glut Sets (number of reps): 10 instructed that he can do this in supine and in sitting. Did this in sitting. LAQ (number of reps): 10 Exercise: Pt was given instructions on the anterior hip precautions, safety with walking with a device, benefits of icing and how and when to apply it. Also explained importance of taking pain meds on time. verbalized a good understanding of all the instructions. THERAPEUTIC SKILLS USED Cuing Verbal, Cues for Sequencing/Proper Technique for Activity, Facilitation of Joint Range of Motion, Movement Facilitation, Muscle Activation Facilitation, Physical Assist, Postural Alignment Correction, Teach-Back for Education FUNCTIONAL STATUS Bed Mobility Rolling: Supervision Supine To Sit: Supervision Sit to Supine: Supervision Scooting: Supervision Transfers Sit To Stand: Contact Guard Assistance Stand To Sit: Contact Guard Assistance Bed to Chair Gait Contact Guard Assistance Gait Device: Wheeled Walker General Deviations/Observation s: Maame decreased Gait Distance (feet): 70 x 2 Stairs Contact Guard Assistance Stairs Device: Cane, Crutch(es) Number of Stairs: 2 GOALS Patient will demonstrate progress with functional mobility to allow safe discharge to home with available support and/or physical assistance. Able to Perform HEP with: Supervision Transfer Supine to/from Sit with: Contact Guard Assistance Transfer Sit to/from Stand with: Contact Guard Assistance Ambulate with: Contact Guard Assistance Distance: 70 Device: Wheeled Walker Ambulate Up and Down Steps with: Contact Guard Assistance Number of Steps: 2 Device: Rail, Crutch(es) Rehab Potential: Excellent Progress Toward Goals: Progressing as expected PLAN PT Frequency: Once Daily Treatment Interventions: Education, Strengthening, Functional Mobility Training, Balance Training Plan for Next Visit: Gait Training, Exercise Instruction/Handout SIGNATURE: Christelle Roche, PT PATIENT NAME: Thomas Matias DATE: December 22, 2023 TIME: 1:23 PM [facility] XR HIP 1V RTon 12-22-2023 XR HIP 1V RT * * *Final Report* * * DATE OF EXAM: Dec 22 2023 9:07AM MMO [id number] - XR HIP 1V RT / PROCEDURE REASON: ROBOTIC ASSISTED ANTERIOR TOTAL HIP ARTHROPLASTY * * * * Physician Interpretation * * * * XR HIP 1V RT HISTORY: ROBOTIC ASSISTED ANTERIOR TOTAL HIP ARTHROPLASTY. Fluoroscopy used during procedure. TECHNIQUE: 4 fluoroscopic image(s) submitted from procedure. The procedure was performed by another clinician. Fluoroscopic Radiation Summary: Plane A, Air Kerma: 1.3 mGy Dose Area Product (DAP): Fluoro time: 0:08 min:sec RESULT: Images of the hip obtained for localization purposes during the hip arthroplasty procedure. IMPRESSION: Correlate with procedure report. Legal Arbitrator: PSCB Transcribe Date/Time: Dec 22 2023 9:13A Dictated by : JOSE DAVID GUTIERREZ MD This examination was interpreted and the report reviewed and electronically signed by: JOSE DAVID GUTIERREZ MD on Dec 22 2023 9:13AM EST [id number] [facility] XR HIP 3V PELV+ AP/LAT RTon 12-22-2023 XR HIP 3V PELV+ AP/LAT RT * * *Final Report* * * DATE OF EXAM: Dec 22 2023 9:06AM MMO [id number] - XR HIP 3V PELV+ AP/LAT RT / PROCEDURE REASON: Post-operative / post-procedure assessment, asymptomatic * * * * Physician Interpretation * * * * HISTORY: post op total rt hip. Post-operative / post-procedure assessment, asymptomatic . TECHNIQUE: XR HIP 3V PELV+ AP/LAT RT Laterality: RIGHT Number of different views (projections): 2 COMPARISON: 11/29/2023 RESULT: Status post right total hip arthroplasty. Normal alignment. No evidence of fracture. There is postprocedural soft tissue gas. 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 - IMPRESSION: STATUS POST SURGERY. Legal Arbitrator: BARBIE Transcribe Date/Time: Dec 22 2023 9:12A Dictated by : JOSE DAVID GUTIERREZ MD This examination was interpreted and the report reviewed and electronically signed by: JOSE DAVID GUTIERREZ MD on Dec 22 2023 9:13AM EST [id number] [facility] CBC W Auto Differential pane l (Bld)on 12-08-2023 Basophils (Bld) [#/Vol] 0.05 10*3/uL Normal <0.11 [facility] Comment on above: Order Comment: Speci men Type: BLOOD SPECIMEN Ordering Facility: [facility] Address: [address] [place] [address] Performed By: #### 5 7021-8 #### [facility] CLIA [id number] [address] [place] [address] [place] Basophils/100 WBC (Bld) 0.7 % Normal [facility] Comment on above: Order Comment: Speci men Type: BLOOD SPECIMEN Ordering Facility: [facility] Address: [address] [place] [address] Performed By: #### 5 7021-8 #### [facility] CLIA [id number] [address] [place] [address] [place] Differential cell count method Nom (Bld) Auto [facility] Comment on above: Order Comment: Speci men Type: BLOOD SPECIMEN Ordering Facility: [facility] Address: [address] [place] [address] Performed By: #### 5 7021-8 #### [facility] CLIA [id number] [address] [place] [address] [place] Eosinophils (Bld) [#/Vol] 0.10 10*3/uL Normal <0.46 [facility] Comment on above: Order Comment: Speci men Type: BLOOD SPECIMEN Ordering Facility: [facility] Address: [address] [place] [address] Performed By: #### 5 7021-8 #### [facility] CLIA [id number] [address] [place] Eosinophils/100 WBC (Bld) 1.5 % Normal [facility] Comment on above: Order Comment: Speci men Type: BLOOD SPECIMEN Ordering Facility: [facility] Address: [address] [place] [address] Performed By: #### 5 7021-8 #### [facility] CLIA [id number] [address] Erythrocyte distribution width (RBC) [Ratio] 12.3 % Normal 11.5-15.0 [facility] Comment on above: Order Comment: Speci men Type: BLOOD SPECIMEN Ordering Facility: [facility] Address: [address] [place] [address] Performed By: #### 5 7021-8 #### [facility] CLIA [id number] [address] Hematocrit (Bld) [Volume fraction] 43.4 % Normal 39.0-51.0 [facility] Comment on above: Order Comment: Speci men Type: BLOOD SPECIMEN Ordering Facility: [facility] Address: [address] [place] [address] Performed By: #### 5 7021-8 #### [facility] CLIA [id number] [address] Hemoglobin (Bld) [Mass/Vol] 14.7 g/dL Normal 13.0-17.0 [facility] Comment on above: Order Comment: Speci men Type: BLOOD SPECIMEN Ordering Facility: [facility] Address: [address] [place] [address] Performed By: #### 5 7021-8 #### [facility] CLIA [id number] [address] [place] Immature granulocytes (Bld) [#/Vol] 10*3/uL Normal <0.10 [facility] Comment on above: Order Comment: Speci men Type: BLOOD SPECIMEN Ordering Facility: [facility] Address: [address] [place] [address] Performed By: #### 5 7021-8 #### [facility] CLIA [id number] [address] Immature granulocytes/100 WBC (Bld) 0.3 % Normal [facility] Comment on above: Order Comment: Speci men Type: BLOOD SPECIMEN Ordering Facility: [facility] Address: [address] [place] [address] Performed By: #### 5 7021-8 #### [facility] CLIA [id number] [address] [place] Lymphocytes (Bld) [#/Vol] 2.67 10*3/uL Normal 1.00-4.00 [facility] Comment on above: Order Comment: Speci men Type: BLOOD SPECIMEN Ordering Facility: [facility] Address: [address] [place] [address] Performed By: #### 5 7021-8 #### [facility] CLIA [id number] [address] Lymphocytes/100 WBC (Bld) 39.3 % Normal [facility] Comment on above: Order Comment: Speci men Type: BLOOD SPECIMEN Ordering Facility: [facility] Address: [address] [place] [address] Performed By: #### 5 7021-8 #### [facility] CLIA [id number] [address] [place] MCH (RBC) [Entitic mass] 31.4 pg Normal 26.0-34.0 [facility] Comment on above: Order Comment: Speci men Type: BLOOD SPECIMEN Ordering Facility: [facility] Address: [address] [place] [address] Performed By: #### 5 7021-8 #### [facility] CLIA [id number] [address] MCHC (RBC) [Mass/Vol] 33.9 g/dL Normal 30.5-36.0 [facility] Comment on above: Order Comment: Speci men Type: BLOOD SPECIMEN Ordering Facility: [facility] Address: [address] [place] [address] Performed By: #### 5 7021-8 #### [facility] CLIA [id number] [address] MCV (RBC) [Entitic vol] 92.7 fL Normal 80.0-100.0 [facility] Comment on above: Order Comment: Speci men Type: BLOOD SPECIMEN Ordering Facility: [facility] Address: [address] [place] [address] Performed By: #### 5 7021-8 #### [facility] CLIA [id number] [address] [place] Monocytes (Bld) [#/Vol] 0.48 10*3/uL Normal <0.87 [facility] Comment on above: Order Comment: Speci men Type: BLOOD SPECIMEN Ordering Facility: [facility] Address: [address] [place] [address] Performed By: #### 5 7021-8 #### [facility] CLIA [id number] [address] Monocytes/100 WBC (Bld) 7.1 % Normal [facility] Comment on above: Order Comment: Speci men Type: BLOOD SPECIMEN Ordering Facility: [facility] Address: [address] [place] [address] Performed By: #### 5 7021-8 #### [facility] CLIA [id number] [address] [place] Neutrophils (Bld) [#/Vol] 3.48 10*3/uL Normal 1.45-7.50 [facility] Comment on above: Order Comment: Speci men Type: BLOOD SPECIMEN Ordering Facility: [facility] Address: [address] [place] [address] Performed By: #### 5 7021-8 #### [facility] CLIA [id number] [address] [place] Neutrophils/100 WBC (Bld) 51.1 % Normal [facility] Comment on above: Order Comment: Speci men Type: BLOOD SPECIMEN Ordering Facility: [facility] Address: [address] [place] [address] Performed By: #### 5 7021-8 #### [facility] CLIA [id number] [address] [place] [address] [place] Nucleated RBC (Bld) [#/Vol] 10*3/uL Normal <0.01 [facility] Comment on above: Order Comment: Speci men Type: BLOOD SPECIMEN Ordering Facility: [facility] Address: [address] [place] [address] Performed By: #### 5 7021-8 #### [facility] CLIA [id number] [address] [place] Nucleated RBC/100 WBC (Bld) [Ratio] 0.0 /100 WBC Normal [facility] Comment on above: Order Comment: Speci men Type: BLOOD SPECIMEN Ordering Facility: [facility] Address: [address] [place] [address] Performed By: #### 5 7021-8 #### [facility] CLIA [id number] [address] [place] Platelet mean volume (Bld) [Entitic vol] 11.0 fL Normal 9.0-12.7 [facility] Comment on above: Order Comment: Speci men Type: BLOOD SPECIMEN Ordering Facility: [facility] Address: [address] [place] [address] Performed By: #### 5 7021-8 #### [facility] CLIA [id number] [address] [place] [address] [place] Platelets (Bld) [#/Vol] 310 10*3/uL Normal 150-400 [facility] Comment on above: Order Comment: Speci men Type: BLOOD SPECIMEN Ordering Facility: [facility] Address: [address] [place] [address] Performed By: #### 5 7021-8 #### [facility] CLIA [id number] [address] [place] RBC (Bld) [#/Vol] 4.68 10*6/uL Normal 4.20-6.00 [facility] Comment on above: Order Comment: Speci men Type: BLOOD SPECIMEN Ordering Facility: [facility] Address: [address] [place] [address] Performed By: #### 5 7021-8 #### [facility] CLIA [id number] [address] [place] WBC (Bld) [#/Vol] 6.80 10*3/uL Normal 3.70-11.00 [facility] Comment on above: Order Comment: Speci men Type: BLOOD SPECIMEN Ordering Facility: [facility] Address: [address] [place] [address] Performed By: #### 5 7021-8 #### [facility] CLIA [id number] [address] Comprehensive metabolic 2000 panelon 12-08-2023 Albumin [Mass/Vol] 4.5 g/dL Normal 3.9-4.9 [facility] Comment on above: Order Comment: Speci men Type: BLOOD SPECIMEN Ordering Facility: [facility] Address: [address] [place] [address] Performed By: #### 2 4323-8 #### [facility] CLIA [id number] [address] ALP [Catalytic activity/Vol] 96 U/L Normal 38-113 [facility] Comment on above: Order Comment: Speci men Type: BLOOD SPECIMEN Ordering Facility: [facility] Address: [address] [place] [address] Performed By: #### 2 4323-8 #### [facility] CLIA [id number] [address] ALT [Catalytic activity/Vol] 19 U/L Normal 10-54 [facility] Comment on above: Order Comment: Speci men Type: BLOOD SPECIMEN Ordering Facility: [facility] Address: [address] [place] [address] Performed By: #### 2 4323-8 #### [facility] CLIA [id number] [address] [place] [address] [place] Anion gap [Moles/Vol] 8 mmol/L Normal 8-15 [facility] Comment on above: Order Comment: Speci men Type: BLOOD SPECIMEN Ordering Facility: [facility] Address: [address] [place] [address] Performed By: #### 2 4323-8 #### [facility] CLIA [id number] [address] [place] [address] [place] AST [Catalytic activity/Vol] 34 U/L Normal 14-40 [facility] Comment on above: Order Comment: Speci men Type: BLOOD SPECIMEN Ordering Facility: [facility] Address: [address] [place] [address] Performed By: #### 2 4323-8 #### [facility] CLIA [id number] [address] [place] [address] [place] Bilirubin [Mass/Vol] 0.6 mg/dL Normal 0.2-1.3 [facility] Comment on above: Order Comment: Speci men Type: BLOOD SPECIMEN Ordering Facility: [facility] Address: [address] [place] [address] Performed By: #### 2 4323-8 #### [facility] CLIA [id number] [address] [place] Calcium [Mass/Vol] 9.5 mg/dL Normal 8.5-10.2 [facility] Comment on above: Order Comment: Speci men Type: BLOOD SPECIMEN Ordering Facility: [facility] Address: [address] [place] [address] Performed By: #### 2 4323-8 #### [facility] CLIA [id number] [address] [place] [address] [place] Chloride [Moles/Vol] 105 mmol/L Normal 98-107 [facility] Comment on above: Order Comment: Speci men Type: BLOOD SPECIMEN Ordering Facility: [facility] Address: [address] [place] [address] Performed By: #### 2 4323-8 #### [facility] CLIA [id number] [address] [place] [address] [place] CO2 [Moles/Vol] 27 mmol/L Normal 22-30 [facility] Comment on above: Order Comment: Risa garcia Type: BLOOD SPECIMEN Ordering Facility: [facility] Address: [address] [place] [address] Performed By: #### 2 4323-8 #### [facility] CLIA [id number] [address] [place] [address] [place] Creatinine [Mass/Vol] 0.99 mg/dL Normal 0.73-1.22 [facility] Comment on above: Order Comment: Risa garcia Type: BLOOD SPECIMEN Ordering Facility: [facility] Address: [address] [place] [address] Performed By: #### 2 4323-8 #### [facility] CLIA [id number] [address] Creatinine and Glomerular filtration rate.predicted panel (S/P/Bld) 97 mL/min/1.73m??? Normal >=60 [facility] Comment on above: Order Comment: Risa garcia Type: BLOOD SPECIMEN Ordering Facility: [facility] Address: [address] [place] [address] Result Comment: Lakeisha mated Glomerular Filtration Rate (eGFR) is calculated using the 2020 CKD-EPI creatinine equation. This equation utilizes serum creatinine, sex, and age as parameters. The creatinine assay has traceable calibration to isotope dilution-mass spectrometry. Refer to KDIGO guidelines for clinical interpretation. In patients with unstable renal function, e.g. those with acute kidney injury, the eGFR may not accurately reflect actual GFR. Performed By: #### 2 4323-8 #### [facility] CLIA [id number] [address] [place] [address] [place] Glucose [Mass/Vol] 103 mg/dL High 74-99 [facility] Comment on above: Order Comment: Risa garcia Type: BLOOD SPECIMEN Ordering Facility: [facility] Address: [address], [place] [address] Result Comment: The [place] [employer] (ADA) provides guidance for cutoff values for fasting glucose and random glucose. The ADA defines fasting as no caloric intake for at least 8 hours. Fasting plasma glucose results between 100 to 125 mg/dL indicate increased risk for diabetes (prediabetes). Fasting plasma glucose results greater than or equal to 126 mg/dL meet the criteria for diagnosis of diabetes. In the absence of unequivocal hyperglycemia, results should be confirmed by repeat testing. In a patient with classic symptoms of hyperglycemia or hyperglycemic crisis, random plasma glucose results greater than or equal to 200 mg/dL meet the criteria for diagnosis of diabetes. Reference: Standards of Medical Care in Diabetes 2016, [place] [employer]. Diabetes Care. 2016.39(Suppl 1). Performed By: #### 2 4323-8 #### [facility] CLIA [id number] [address] [place] [address] [place] Potassium [Moles/Vol] 4.1 mmol/L Normal 3.7-5.1 [facility] Comment on above: Order Comment: Risa garcia Type: BLOOD SPECIMEN Ordering Facility: [facility] Address: [address] [place] [address] Performed By: #### 2 4323-8 #### [facility] CLIA [id number] [address] [place] [address] [place] Protein [Mass/Vol] 7.4 g/dL Normal 6.3-8.0 [facility] Comment on above: Order Comment: Risa garcia Type: BLOOD SPECIMEN Ordering Facility: [facility] Address: [address] [place] [address] Performed By: #### 2 4323-8 #### [facility] CLIA [id number] [address] [place] [address] [place] Sodium [Moles/Vol] 140 mmol/L Normal 136-144 [facility] Comment on above: Order Comment: Risa garcia Type: BLOOD SPECIMEN Ordering Facility: [facility] Address: [address] [place] [address] Performed By: #### 2 4323-8 #### [facility] CLIA [id number] [address] [place] [address] [place] Urea nitrogen [Mass/Vol] 12 mg/dL Normal 9-24 [facility] Comment on above: Order Comment: Speci men Type: BLOOD SPECIMEN Ordering Facility: [facility] Address: [address] [place], [place] [address] [address] Performed By: #### 2 4323-8 #### [facility] CLIA [id number] [address] [place] [address] [place] ECG COMPLETEon 12-08-2023 ECG COMPLETE Ventricular Rate : 5 4 BPM Atrial Rate : 54 BPM P-R Interval : 180 ms QRS Duration : 90 ms Q-T Interval : 438 ms QTC Calculation(Bazett) : 415 ms Calculated P [place] : 39 degrees Calculated R [place] : -21 degrees Calculated T [place] : 26 degrees SINUS BRADYCARDIA NONSPECIFIC T WAVE ABNORMALITY ABNORMAL ECG WHEN COMPARED WITH ECG OF 13-Jun-2023 07:48, NO SIGNIFICANT CHANGE WAS FOUND Confirmed by KAILASH ALVAREZ DO ([id number]) on 12/08/2023 4:51:11 PM NAME : THOMAS MATIAS PID : [id number] : 1980 Gender : Male Race : Unknown ORD : [id number] Procedure Date : Dec 08 2023 09:05:18 Edit Date : Dec 08 2023 16:51:13 Diagnosis: SINUS BRADYCARDIA NONSPECIFIC T WAVE ABNORMALITY ABNORMAL ECG WHEN COMPARED WITH ECG OF 13-Jun-2023 07:48, NO SIGNIFICANT CHANGE WAS FOUND Confirmed by KAILASH ALVAREZ DO ([id number]) on 12/08/2023 4:51:11 PM Test Reason : [facility] Location : [address] [place] [address] Overread By : KAILASH ALVAREZ DO Edited By : KAILASH ALVAREZ DO Referred By : OUSMANE KELLY Acquired by : Nara ARORA [facility] HISTORY PHYSICALon HISTORY PHYSICAL HNO ID: [id number] Author: LUCIE ZAFAR PA-C Service: ? Author Type: Physician Glass Blower Type: H&P Filed: 12/11/2023 12:03 Note Text: HISTORY AND PHYSICAL EXAMINATION SERVICE DATE: 12/08/2023 SERVICE TIME: 9:59 AM PRIMARY CARE PHYSICIAN: Carine Moreno DO Assessment Patient has the following medical conditions which may affect darcie-operative course: Obesity (BMI 30.0-34.9) Assessment: Body mass index is 32.43 kg/m?. Spencer Activity Status Index: METS: Participate in moderate recreational activites, such as golf, bowling, dancing, doubles tennis, or throwing a baseball or football (6.00 METs) DASI Score: 6 Patient denies any chest pain or undue shortness of breath with the above physical activity. Clinical Frailty Scale: 2. Well STOP-Bang Score: Snores loudly Male patient Denies feeling tired, fatigued, or sleepy during the daytime Has not been observed to stop breathing or choking/gasping during sleep Denies having high blood pressure BMI less than or equal to 35 kg/m2 Patient 50 years old or younger Does not have a large neck STOP-Bang Score: 2 [id number] Score: Age: <65 Sex: male CHF history: No Hypertension history: No Stroke/TIA/thromboembo lism history: No Vascular disease history: No Diabetes history: No [id number] Score: 0 ARISCAT Score: Age: <=50 Preoperative SpO2: >=96% Respiratory infection in the last month: No Preoperative anemia: Yes Surgical incision: peripheral Duration of surgery: 2-3 hrs Emergency procedure: No ARISCAT Score: 27 ANESTHESIA FINDINGS: Intubation History: No history of difficult intubation. No abnormal airway history Significant Anesthesia Considerations: none Airway History: No history of difficult airway No abnormal airway history I - PHYSICAL EVALUATION AIRWAY Patient intubated: No. Tracheostomy tube not present Mallampati: IV. TM distance: >3 FB. Neck ROM: full ROM without neurological symptoms. Mouth opening: adequate. Short neck: no. Thick neck: no Lip Bite Test: II DENTAL Dental findings: missing tooth/teeth. Additional comments: + front top veneers. II - ANESTHESIA PLAN Anesthetic Plan: other Anesthetic plan additional comments: *PACC/TCI - anesthesia choice. Beta Liana Monitoring Plan Post Procedure Analgesic Plan Prepared for Surgery: optimally prepared for surgery. UA today. Had labwork done at OSH 11/16/23, reviewed and acceptable. Scanned into chart. Per MSBOS Type and Screen is not required December 11, 2023 12:03 PM Labs and EKG reviewed. OK to proceed with procedure. Lucie Zafar PA-C CONSULTS: Patient does not require consults for optimization at this time Planned Anesthetic: other anesthesia choice REASON FOR VISIT: Thomas Matias is a 43 year old male who is scheduled for Procedure(s) with comments: ROBOTIC ASSISTED ANTERIOR TOTAL HIP ARTHROPLASTY (Right) - Ivette JASPREET, [place] Table, Fluoro same day at the request of Gabino Farris MD for consultation. My final recommendation will be communicated back to the requesting physician by way of shared medical record or letter. Subjective The patient has the following: ACTIVE PROBLEM LIST Obesity (Bmi 30.0-34.9) COVID-19 Immunization Status Overdue - Covid-19 Vaccine (2022-24 season) Never done No completion, postpone, frequency change, or communication history exists for this topic. CHIEF COMPLAINT: Pre-anesthesia optimization HPI: Thomas Matias is a 43 year old male presenting for pre-anesthesia consultation. Pt has history of bilateral hip core decompression. Had left and right hips injected with stem cells to promote blood flow in June 2023. States pain has reduced and now is having right hip replaced. Reports pain started after Thanksgiving last year. 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 Procedure scheduled on 12/22/2023 at [facility]. REVIEW OF SYSTEMS: General: No weight loss, malaise or fevers. Neurological: No history of TIA's, stroke, MANAGER OF MANUFACTURING tumor, impaired sensorium, hemiplegia, paraplegia or quadraplegia. No neurological symptoms or problems. Respiratory: Positive for: tobacco use (smoked 1 year after college). Negative for: asthma, COPD, current cough, dyspnea, URI < 2 weeks and obstructive sleep apnea. Cardiovascular: No history of HTN requiring medication, no history of angina, CHF, DC, cardiac surgery or stents. Denies rest pain, gangrene or revascularization/ampu tation for PVD. No history of cardiovascular symptoms or problems. GI: No history of GI symptoms or problems. No history of esophageal varices, recent ascites, or ETOH greater than 2 drinks per day. : No history of dysuria, frequency or incontinence, stones or chronic kidney disease. No difficulty urinating, nocturia > 1 time per night or hematuria. Endocrine: No history of diabetes. Has not taken steroid (more content not included)... [facility] TYPE AND SCREEN,30 DAYon ABO O [facility] Comment on above: Order Comment: Speci men Type: BLOOD SPECIMEN Ordering Facility: [facility] Address: [address] [place] [address] Performed By: #### T SCR30 #### [facility] CLIA [id number] [address] HISTORICAL AB SCR STATUS Negative Normal [facility] Comment on above: Order Comment: Speci men Type: BLOOD SPECIMEN Ordering Facility: [facility] Address: [address] [place] [address] Performed By: #### T SCR30 #### [facility] CLIA [id number] [address] Rh Nom (Bld) Positive Normal [facility] Comment on above: Order Comment: Speci men Type: BLOOD SPECIMEN Ordering Facility: [facility] Address: [address] [place] [address] Performed By: #### T SCR30 #### [facility] CLIA [id number] [address] URINALYSIS, DIPSTICK ONLYon 12-08-2023 Bilirubin Ql (U) Negative Normal Negative [facility] Comment on above: Order Comment: Speci men Type: URINE SPECIMEN Ordering Facility: [facility] Address: [address] [place] [address] Performed By: #### U A #### [facility] CLIA [id number] [address] Clarity (Unsp spec) Clear Normal Clear [facility] Comment on above: Order Comment: Speci men Type: URINE SPECIMEN Ordering Facility: [facility] Address: [address] [place] [address] Performed By: #### U A #### [facility] CLIA [id number] [address] OF [facility] Color (U) Yellow Normal Yellow [facility] Comment on above: Order Comment: Speci men Type: URINE SPECIMEN Ordering Facility: [facility] Address: [address] [place] [address] Performed By: #### U A #### [facility] CLIA [id number] [address] [place] Glucose Test strip (U) [Mass/Vol] Negative Normal Negative [facility] Comment on above: Order Comment: Speci men Type: URINE SPECIMEN Ordering Facility: [facility] Address: [address] [place] [address] Performed By: #### U A #### [facility] CLIA [id number] [address] Hemoglobin Ql (U) Trace Abnormal Negative [facility] Comment on above: Order Comment: Speci men Type: URINE SPECIMEN Ordering Facility: [facility] Address: [address] [place] [address] Performed By: #### U A #### [facility] CLIA [id number] [address] Ketones Ql (U) Negative Normal Negative [facility] Comment on above: Order Comment: Speci men Type: URINE SPECIMEN Ordering Facility: [facility] Address: [address] [place] [address] Performed By: #### U A #### [facility] CLIA [id number] [address] Leukocyte esterase Test strip Ql (U) Negative Normal Negative [facility] Comment on above: Order Comment: Speci men Type: URINE SPECIMEN Ordering Facility: [facility] Address: [address] [place] [address] Performed By: #### U A #### [facility] CLIA [id number] [address] Nitrite Ql (U) Negative Normal Negative [facility] Comment on above: Order Comment: Speci men Type: URINE SPECIMEN Ordering Facility: [facility] Address: [address] [place] [address] Performed By: #### U A #### [facility] CLIA [id number] [address] pH (U) 7.0 [pH] Normal 5.0-8.0 [facility] Comment on above: Order Comment: Speci men Type: URINE SPECIMEN Ordering Facility: [facility] Address: [address] [place] [address] Performed By: #### U A #### [facility] CLIA [id number] [address] [place] Protein (U) [Mass/Vol] Negative Normal Negative [facility] Comment on above: Order Comment: Speci men Type: URINE SPECIMEN Ordering Facility: [facility] Address: [address] [place] [address] Performed By: #### U A #### [facility] CLIA [id number] [address] Specific gravity (U) [Rel density] 1.020 Normal 1.005-1.030 [facility] Comment on above: Order Comment: Speci men Type: URINE SPECIMEN Ordering Facility: [facility] Address: [address] [place] [address] Performed By: #### U A #### [facility] CLIA [id number] [address] Urobilinogen Ql (U) 0.2 EU/dL Normal 0.2-1.0 EU/dL [facility] Comment on above: Order Comment: Speci men Type: URINE SPECIMEN Ordering Facility: [facility] Address: [address] [place] [address] Performed By: #### U A #### [facility] CLIA [id number] [address] CNP[facility] THOMAS MATIAS ([id number]) 1980 M Date Time Provider Department 12/07/23 MARIA ESTHER ESQUIVEL [facility] During your visit today, we recorded the following information about you: Maria Esther Esquivel LSW 12/07/2023 2:16 PM Signed CARE CONTINUUM ADVISOR ASSESSMENT PRIMARY CARE PHYSICIAN: Carine Moreno DO OR Surgery Date: 12/22/23 [facility] Appointment: n/a Health Insurance: [employer] Resources: Employed: yes Primary Contact: Extended Emergency Contact Information Primary Emergency Contact: CARMEN MATIAS Relation: Spouse Other Important Patient Contacts: None Patient/Control Chemist Stated Goals: To have reduction in pain, To have reduction in symptoms, and To improve my functional status Frame Table Operator Helper needed?: No Home Phone Primary Contact: Cell Phone Primary Contact:same ADVANCE DIRECTIVES: Does Patient Have Advance Directives? No, Patient refused Does Patient Have Concerns About Advance Directives? No Education Provided: Yes SOCIAL: Living Arrangement: Home Lives With: Spouse Stairs: 2 story home 3 stairs to enter home Do you have any concerns with food and/or affording food?: No Do you have reliable transportation to and from surgery/appointments?: Yes Medication Adherence: Do you have any concerns with your prescription medication?: No Who do you use for pharmacy?: [facility] Baseline Mental Status: Alert AND Oriented Informant: Self What is your current functional status?: Perform ADLs independently Equipment: Do you currently use any equipment at home for your medical condition or to help you get around? Walker Ice machine Active Services/Needs: None Do you have a community youth secretary contact through your insurance or WRAAA?: No Has the Patient Been in a Shelter Facility in the Past 30 days? No FREEDOM OF CHOICE: Level of Care Discussed: Home Care Financial Disclosure Provided: Yes Financial Disclaimer Provided: Yes, regarding pre-cert / insurance authorization Provider List: Home Care Provider list within the patient's requested geographic area shared with the patient/family: Yes - Within [address] miles of [address] [place] [address] Provider Choices Collected Home Health: [facility] Interventions: Discussed importance of active PCP relationship and follow up Discussed insurance risks, gaps, and programs available Discussed reliable transportation needs for surgery and follow up appointments ELINOR Stevens Allergies As of Date: 12/07/2023 (No Known Allergies) Date Reviewed: 07/27/2023 Reviewed by: Theo Rhoades MA - Fully Assessed Prescriptions as of 12/07/2023 - mupirocin (BACTROBAN) 2 % ointment Using a Q-Tip, apply 1/2 inch strip of ointment to both nostrils, twice daily, for 5 days before surgery Patient should start on December 17, 2023. - aspirin 325 mg tablet Take 1 tablet by mouth two times a day. - omeprazole (PRILOSEC) 20 mg capsule Take 1 capsule by mouth once daily. Problem List As Of Date 12/07/2023 Noted Resolved Obesity (BMI 30.0-34.9) [E66.9] 06/09/2023 Encounter Status:Closed by MARIA ESTHER ESQUIVEL on 12/07/23 [facility] XR HIP 3V PELV+ AP/LAT RTon 11-29-2023 XR HIP 3V PELV+ AP/LAT RT * * *Final Report* * * DATE OF EXAM: Nov 29 2023 1:32PM MMX [id number] - XR HIP 3V PELV+ AP/LAT RT / PROCEDURE REASON: multiple diagnoses * * * * Physician Interpretation * * * * HISTORY: Hip pain. Presurgical evaluation. pre op (accession [id number]), rt hip pre op (accession [id number]). Avascular necrosis of bone of hip, right (HCC) Bilateral hip pain Bilateral hip pain Status post hip surgery. TECHNIQUE: XR LEG FRONTL HIP-ANKL [facility] AXIS, XR HIP 3V PELV+ AP/LAT RT COMPARISON: August 18, 2023 RESULT: Pelvis and right hip: Large areas of bilateral femoral head osteonecrosis (AVN) are again seen including early subchondral collapse on the RIGHT. Hip joints are grossly maintained. Sacroiliac joints are intact. Lateral view of lumbosacral region obtained with presurgical protocol. Standing view of both lower extremities: RIGHT knee shows changes from prior ACL reconstruction. Bilateral femoral head osteonecrosis. Biomechanical [place]: Right side: Approximately 1.5 degrees varus Left side: Approximately 3.5 degrees varus - IMPRESSION: Bilateral femoral head osteonecrosis with subchondral collapse on the RIGHT. Presurgical planning. Legal Arbitrator: BARBIE Transcribe Date/Time: Dec 01 2023 5:37P Dictated by : JOSE DAVID GUTIERREZ MD This examination was interpreted and the report reviewed and electronically signed by: JOSE DAVID GUTIERREZ MD on Dec 01 2023 5:39PM EST [id number] [facility] XR LEG FRONTL HIP-ANKL [facility] AXISon 11-29-2023 XR LEG FRONTL HIP-ANKL [facility] AXIS * * *Final Report* * * DATE OF EXAM: Nov 29 2023 1:32PM MMX [id number] - XR LEG FRONTL HIP-ANKL [facility] AXIS / PROCEDURE REASON: multiple diagnoses * * * * Physician Interpretation * * * * HISTORY: Hip pain. Presurgical evaluation. pre op (accession [id number]), rt hip pre op (accession [id number]). Avascular necrosis of bone of hip, right (HCC) Bilateral hip pain Bilateral hip pain Status post hip surgery. TECHNIQUE: XR LE[facility], XR HIP 3V PELV+ AP/LAT RT COMPARISON: August 18, 2023 RESULT: Pelvis and right hip: Large areas of bilateral femoral head osteonecrosis (AVN) are again seen including early subchondral collapse on the RIGHT. Hip joints are grossly maintained. Sacroiliac joints are intact. Lateral view of lumbosacral region obtained with presurgical protocol. Standing view of both lower extremities: RIGHT knee shows changes from prior ACL reconstruction. Bilateral femoral head osteonecrosis. Biomechanical [place]: Right side: Approximately 1.5 degrees varus Left side: Approximately 3.5 degrees varus - IMPRESSION: Bilateral femoral head osteonecrosis with subchondral collapse on the RIGHT. Presurgical planning. Legal Arbitrator: BARBIE Transcribe Date/Time: Dec 01 2023 5:37P Dictated by : JOSE DAVID GUTIERREZ MD This examination was interpreted and the report reviewed and electronically signed by: JOSE DAVID GUTIERREZ MD on Dec 01 2023 5:39PM EST [id number] [facility] NURSING PROGon 11-20-2023 NURSING PROG HNO ID: [id number] Author: JACKLYN GRIFFITH RN Service: ? Author Type: Registered Nurse Type: Nursing Progress Note Filed: 11/20/2023 09:41 Note Text: TOTAL JOINT COMPLETE CARE PROGRAM PRE-OPERATIVE TEACHING Service Date: 11/20/2023 Service Time: 939 Date of : 1980 Gender: male Date of Surgery: 12/22/2023 Procedure: Right Total Hip Replacement Complete Care Program was discussed with the patient: Strategic Procurement Manager Identification: Patient identified a career representative to help when discharged to home: Home Environment: Home Layout: 2 story, Entry Steps: 3+, Bedroom Location: 2nd floor, and Bathroom Location: 1st floor Discussed with patient importance of attending joint education class and provided date and times of class: YES Patient received Joint Education Binder: Yes Same day Went home same day in 06/2023 SIGNATURE: Jacklyn Griffith RN PATIENT NAME: Thomas Matias DATE: November 20, 2023 TIME: 9:40 AM [facility] Fructosamineon 11-16-2023 FRUCTOSAMINE 246 umol/L Normal 0-285 [facility] Comment on above: Result Comment: Publ ished reference interval for apparently healthy subjects between age 20 and 60 is 205 - 285 umol/L and in a poorly controlled diabetic population is 228 - 563 umol/L with a mean of 396 umol/L. Performed at: [facility] [id number] Film Loader: Jose Cali PhD, Phone: [phone] Performed By: #### L 500.2500, BTSPAT, L100.0100, L300.4310, M100.651, L300.3900, L3400.0100, L501.9985 ####[facility] [id number] [place], [address] MRSA/SAID NASAL SCREENon MRSA+SAID SCRN Reason for Exam: PRE OP MRSA MRSA Negative S. AUREUS S. aureus Negative Normal [facility] Comment on above: Performed By: #### L 500.2500, BTSPAT, L100.0100, L300.4310, M100.651, L300.3900, L3400.0100, L501.9985 ####[facility] [id number] [facility] [place], [address] Basic Metabolic Profile (BMP )on 11-15-2023 BUN/CRE 12.7 RATIO Normal 10-20 [facility] Comment on above: Performed By: #### L 500.2500, BTSPAT, L100.0100, L300.4310, M100.651, L300.3900, L3400.0100, L501.9985 #### [facility] [address] [place], [address] CA,Total 9.7 mg/dL Normal 8.5-10.1 [facility] Comment on above: Performed By: #### L 500.2500, BTSPAT, L100.0100, L300.4310, M100.651, L300.3900, L3400.0100, L501.9985 #### [facility] [address] [place], [address] Chloride [Moles/Vol] 108 mmol/L High 98-107 [facility] Comment on above: Performed By: #### L 500.2500, BTSPAT, L100.0100, L300.4310, M100.651, L300.3900, L3400.0100, L501.9985 #### [facility] [address] [place], [address] CO2 [Moles/Vol] 26.0 mmol/L Normal 21.0-32.0 [facility] Comment on above: Performed By: #### L 500.2500, BTSPAT, L100.0100, L300.4310, M100.651, L300.3900, L3400.0100, L501.9985 #### [facility] [address] [place], [address] Creatinine [Mass/Vol] 1.02 mg/dL Normal 0.70-1.30 [facility] Comment on above: Result Comment: The validity of the calculated GFR GFRAA in patients over 70 years has not been determined. Clinical correlation is essential. Performed By: #### L 500.2500, BTSPAT, L100.0100, L300.4310, M100.651, L300.3900, L3400.0100, L501.9985 #### [facility] [address] [place], [address] EST GFR - AA 102 mL/min Normal >60 [facility] Comment on above: Result Comment: Afri can [place] GFR Calc Performed By: #### L 500.2500, BTSPAT, L100.0100, L300.4310, M100.651, L300.3900, L3400.0100, L501.9985 #### [facility] [address] [place], [address] GAP 6 Normal 5-15 [facility] Comment on above: Performed By: #### L 500.2500, BTSPAT, L100.0100, L300.4310, M100.651, L300.3900, L3400.0100, L501.9985 #### [facility] [address] [place], [address] GFR/1.73 sq M.predicted among non-blacks MDRD (S/P/Bld) [Vol rate/Area] 85 mL/min/{1.73_m2} Normal >60 [facility] Comment on above: Result Comment: Non- GFR Calc Performed By: #### L 500.2500, BTSPAT, L100.0100, L300.4310, M100.651, L300.3900, L3400.0100, L501.9985 #### [facility] [address] [place], [address] Glucose [Mass/Vol] 102 mg/dL Normal 74-[address] [facility] Comment on above: Result Comment: Fast ing Glucose result from 100 to 125 mg/dL suggests IMPAIRED HOMEOSTASIS per A.D.A. criteria. Performed By: #### L 500.2500, BTSPAT, L100.0100, L300.4310, M100.651, L300.3900, L3400.0100, L501.9985 #### [facility] [address] [place], [address] Potassium [Moles/Vol] 3.7 mmol/L Normal 3.5-5.1 [facility] Comment on above: Performed By: #### L 500.2500, BTSPAT, L100.0100, L300.4310, M100.651, L300.3900, L3400.0100, L501.9985 #### [facility] [address] [place], [address] Sodium [Moles/Vol] 140 mmol/L Normal 136-[address] [facility] Comment on above: Performed By: #### L 500.2500, BTSPAT, L100.0100, L300.4310, M100.651, L300.3900, L3400.0100, L501.9985 #### [facility] [address] [place], [place], [id number] [phone] Urea nitrogen [Mass/Vol] 13 mg/dL Normal 7-18 [facility] Comment on above: Performed By: #### L 500.2500, BTSPAT, L100.0100, L300.4310, M100.651, L300.3900, L3400.0100, L501.9985 #### [facility] [address] [place], [address] CBC W/Diff, Automatedon 07-1 0-2023 Absolute Lymph 2.30 X10 3/uL Normal 0.83-4.51 [facility] Comment on above: Performed By: #### L 500.2500, BTSPAT, L100.0100, L300.4310, M100.651, L300.3900, L3400.0100, L501.9985 #### [facility] [address] [place], [address] Absolute Neut 3.3 X10 3/uL Normal 2.0-7.7 [facility] Comment on above: Performed By: #### L 500.2500, BTSPAT, L100.0100, L300.4310, M100.651, L300.3900, L3400.0100, L501.9985 #### [facility] [address] [place], [address] Basophils/100 WBC (Bld) 0.8 % Normal 0-1 [facility] Comment on above: Performed By: #### L 500.2500, BTSPAT, L100.0100, L300.4310, M100.651, L300.3900, L3400.0100, L501.9985 #### [facility] [address] [place], [address] Eosinophils/100 WBC (Bld) 1.6 % Normal 0-5 [facility] Comment on above: Performed By: #### L 500.2500, BTSPAT, L100.0100, L300.4310, M100.651, L300.3900, L3400.0100, L501.9985 #### [facility] [address] [place], [address] Erythrocyte distribution width (RBC) [Ratio] 12.5 % Normal 11.6-14.6 [facility] Comment on above: Performed By: #### L 500.2500, BTSPAT, L100.0100, L300.4310, M100.651, L300.3900, L3400.0100, L501.9985 #### [facility] [address] [place], [address] Hematocrit (Bld) [Volume fraction] 44.3 % Normal 40-54 [facility] Comment on above: Performed By: #### L 500.2500, BTSPAT, L100.0100, L300.4310, M100.651, L300.3900, L3400.0100, L501.9985 #### [facility] [address] [place], [address] Hemoglobin (Bld) [Mass/Vol] 14.7 g/dL Normal 13.0-16.5 [facility] Comment on above: Performed By: #### L 500.2500, BTSPAT, L100.0100, L300.4310, M100.651, L300.3900, L3400.0100, L501.9985 #### [facility] [address] [place], [address] IG% 0.200 Normal 0.0-0.9 [facility] [place] Comment on above: Result Comment: IG% - Immature Granulocytes (promyelocytes, myelocytes and metamyelocytes) > 1% indicates that a LEFT SHIFT is Present. Performed By: #### L 500.2500, BTSPAT, L100.0100, L300.4310, M100.651, L300.3900, L3400.0100, L501.9985 #### [facility] [address] [place], [address] Lymphocytes/100 WBC (Bld) 37.2 % Normal 19-41 [facility] Comment on above: Performed By: #### L 500.2500, BTSPAT, L100.0100, L300.4310, M100.651, L300.3900, L3400.0100, L501.9985 #### [facility] [address] [place], [address] MCH (RBC) [Entitic mass] 31.3 pg Normal 27.0-32.0 [facility] Comment on above: Performed By: #### L 500.2500, BTSPAT, L100.0100, L300.4310, M100.651, L300.3900, L3400.0100, L501.9985 #### [facility] [address] [place], [address] MCHC (RBC) [Mass/Vol] 33.2 g/dL Normal 32-36 [facility] Comment on above: Performed By: #### L 500.2500, BTSPAT, L100.0100, L300.4310, M100.651, L300.3900, L3400.0100, L501.9985 #### [facility] [address] [place], [address] MCV (RBC) [Entitic vol] 94.5 fL High 80-94 [facility] Comment on above: Performed By: #### L 500.2500, BTSPAT, L100.0100, L300.4310, M100.651, L300.3900, L3400.0100, L501.9985 #### [facility] [address] [place], [address] Monocytes/100 WBC (Bld) 7.8 % Normal 0-10 [facility] Comment on above: Performed By: #### L 500.2500, BTSPAT, L100.0100, L300.4310, M100.651, L300.3900, L3400.0100, L501.9985 #### [facility] [address] [place], [address] Neutrophils/100 WBC (Bld) 52.4 % Normal 47-70 [facility] Comment on above: Performed By: #### L 500.2500, BTSPAT, L100.0100, L300.4310, M100.651, L300.3900, L3400.0100, L501.9985 #### [facility] [address] [place], [address] Nucleated RBC (Bld) [#/Vol] 0 10*3/uL Normal 0-5 [facility] Comment on above: Performed By: #### L 500.2500, BTSPAT, L100.0100, L300.4310, M100.651, L300.3900, L3400.0100, L501.9985 #### [facility] [address] [place], [address] Platelet mean volume (Bld) [Entitic vol] 11.2 fL Normal 6.2-12.0 [facility] Comment on above: Performed By: #### L 500.2500, BTSPAT, L100.0100, L300.4310, M100.651, L300.3900, L3400.0100, L501.9985 #### [facility] [address] [place], [address] Platelets (Bld) [#/Vol] 289 10*3/uL Normal 150-450 [facility] Comment on above: Performed By: #### L 500.2500, BTSPAT, L100.0100, L300.4310, M100.651, L300.3900, L3400.0100, L501.9985 #### [facility] [address] [place], [address] RBC (Bld) [#/Vol] 4.69 10*6/uL Normal 4.6-6.2 [facility] Comment on above: Performed By: #### L 500.2500, BTSPAT, L100.0100, L300.4310, M100.651, L300.3900, L3400.0100, L501.9985 #### [facility] [address] [place], [address] RDW SD 42.7 fl Normal 35.1-43.9 [facility] Comment on above: Performed By: #### L 500.2500, BTSPAT, L100.0100, L300.4310, M100.651, L300.3900, L3400.0100, L501.9985 #### [facility] [address] [place], [address] WBC (Bld) [#/Vol] 6.2 10*3/uL Normal 4.4-11.[address] [facility] Comment on above: Performed By: #### L 500.2500, BTSPAT, L100.0100, L300.4310, M100.651, L300.3900, L3400.0100, L501.9985 #### [facility] [address] [place], [address] Hemoglobin A1con 11-15-2023 HbA1c (Bld) [Mass fraction] 5.6 % Normal 3.8-5.6 [facility] Comment on above: Result Comment: Norm al < 5.7 % Prediabetic 5.7 - 6.4 % Diabetic >or= 6.5 % Please note range changes. Performed By: #### L 500.2500, BTSPAT, L100.0100, L300.4310, M100.651, L300.3900, L3400.0100, L501.9985 #### [facility] [address] [place], [address] Magnesiumon 11-15-2023 Magnesium [Mass/Vol] 2.2 mg/dL Normal 1.6-2.6 [facility] Comment on above: Performed By: #### L 501.5200 #### [facility] [address] [place], [address] Partial Thromboplast Timeon 11-15-2023 aPTT Coag (Bld) [Time] 32.9 s Normal 24.1-36.2 [facility] Comment on above: Performed By: #### L 500.2500, BTSPAT, L100.0100, L300.4310, M100.651, L300.3900, L3400.0100, L501.9985 #### [facility] [address] [place], [address] Prothrombin Time w/INRon INR Coag (PPP) [Relative time] 1.1 {INR} Normal [facility] Comment on above: Performed By: #### L 500.2500, BTSPAT, L100.0100, L300.4310, M100.651, L300.3900, L3400.0100, L501.9985 #### [facility] [address] [place], [address] PT Coag (PPP) [Time] 13.7 s Normal 11.7-14.9 [facility] Comment on above: Performed By: #### L 500.2500, BTSPAT, L100.0100, L300.4310, M100.651, L300.3900, L3400.0100, L501.9985 #### [facility] [address] [place], [address] Type AND Screen - PAT ONLYon 11-15-2023 ABO and Rh group Nom (Bld) Blood group O Rh(D) positive Normal [facility] Comment on above: Order Comment: Surge ry Date: 11/28/23 Reason for Laboratory Test PREOP [id number] N/A N N S RIGHT THR Performed By: #### L 500.2500, BTSPAT, L100.0100, L300.4310, M100.651, L300.3900, L3400.0100, L501.9985 #### [facility] [address] [place], [address] HIP, UNI W/ Pelvis 2-3 Views on 11-06-2023 HIP, UNI W/ Pelvis 2-3 Views [facility] [address] [place] [address] HIP, UNI W/ Pelvis 2-3 Views MR#: [id number] Acct: [id number] Name: THOMAS MATIAS Rep #: [id number] : 1980 M 43 From: Alexander Martínez MD PCP: Dr. Carine Moreno, DO Status: DEP AMB Study: HIP, UNI W/ Pelvis 2-3 Views Date of Exam: 05/31 Exam# [id number] Ordering Dr: Nigel Delgado DO [id number] STUDY: X-RAY - PELVIS AND RIGHT HIP REASON FOR EXAM: Male, 43 years old. Pain. TECHNIQUE: 3 views of the pelvis and hip. COMPARISON: August 18, 2023 FINDINGS: There is a non-specific bowel gas pattern. Normal visualized soft tissue structures. Normal bilateral iliac wings, sacroiliac joints and visualized sacrum. Normal bilateral superior and inferior pubic rami. Normal pubic symphysis. Normal bilateral ischial tuberosities. Stable avascular necrosis of both femoral heads without collapse. RAD/HIP, UNI W/ Pelvis 2-3 Views IMPRESSION: Stable avascular necrosis of both femoral heads without collapse at this time. Electronically Signed: Alexander Martínez MD at 13:45 EDT Reading Location ID and State: [facility] / [place] , Service support , CC: Dr. Nigel Delgado DO; Dr. Carine Moreno DO Legal Arbitrator: Signed Normal [facility] Orthopedic Visit Reporton Orthopedic Visit Report [facility] [address] [place] [address] OFFICE VISIT Date of Service: 11/06/23 MR#: [id number] Acct: [id number] Name: THOMAS MATIAS Rep #: [id number] : 1980 Provider: Dr. Nigel barr DO Age/Sex: 43/M Location: [facility] [place] Status: Signed Intake Vital Signs 04/26/21 14:46 Height 5 ft 9 in Intake Visit Reasons: right hip Accompanied by: Self Is patient in pain?: Yes Allergies No Known Allergies Allergy (Verified 11/06/23 13:24) Medications ???Medication ???Instructions ???Recorded ???Confirmed ???Type NK 05/22/23 11/06/23 History PFSH Surgical History H/O knee surgery Social History (Updated 11/06/23 @ 13:25 by Carmen Matias) household members: family Smoking Status: Never smoker alcohol intake: never substance use type: does not use HPI right hip Details: This documentation accurately reflects the service provided and the decisions made by me, Dr. Nigel Delgado, DO 11/06/23 0931. Part of today???s visit was documented by [ ], acting as scribe. THOMAS MATIAS is a 43 year old M here today for right hip pain. Patient notes that he has had hip pain since March. He denies any known injury. He was on higher doses of steroids for a few weeks during a severe COVID infection, however no other risk factors for AVN. he complains of pain into his groin. He has increased pain with all activities and has difficulty ambulating stairs. He uses crutches to ambulate. Pain is worse when rising to a stand and with weightbearing. Patient notes on 06/14/23 he had bilateral core decompression with Dr Berg at [facility] they did do a bone marrow harvest from the pelvis and the right tibia. He states the surgery helped his left hip but he continues to have pain into his right hip. He takes ibuprofen 400mg twice daily due to his pain. It is severely affecting his quality life he cannot play with his children and do normal activities for his age. Ortho Exam General General: Yes no acute distress Neurologic: Yes alert and Yes oriented x3 Psychologic: Yes reasonable and appropriate Right Hip Skin: Yes CDI, No Ecchymosis, No soft tissue swelling and No Erythema HIP: There is 2 lateral scars from the core decompression procedure and 1 over the ASIS area from the harvest site there is no masses skin concerns signs of infection or DVT no gross motor or sensory deficits right lower extremity Supplemental Info 08/18/2023 x-ray right hip: sclerotic changes of the femoral head consistent with AVN preserved joint space, lateral view demonstrates a break in the cortex with very minimal impaction 05/25/2023 MRI right hip: Avascular necrosis of the femoral heads bilaterally, with marrow edema throughout the femoral heads/necks bilaterally. Small hip joint effusions bilaterally. Tear of the right anterior acetabular labrum. 04/25/2023 x-ray lumbar spine: Multilevel facet hypertrophy lower lumbar spine. Coding Level of Care Code Off vis,est,level 3 Diagnoses Osteonecrosis of both hips M87.9 Assessment and Plan Assessment and Plan (1) Osteonecrosis of both hips: Status: Acute Orders: Orders HIP, UNI W/ Pelvis 2-3 Views Today M87.9 - Osteonecrosis, unspecified Plan Spoke with the patient about the anatomy of the hip. Spoke with the patient about his options- increase ibuprofen and tylenol, bisphosphate medications, or a total hip arthroplasty. Explained that he will likely need a revision surgery in his lifetime due to his young age and therefore if surgery could be postponed till later in life this would lower the risk of having to have a revision procedure which does come with inherently more risk. Spoke with the patient about the risks and benefits of surgery. Patient will have hip precautions strict for 6 weeks however for 12 weeks postop I do not want him waking anything up off the ground that is more than 5 pounds I explained however he could dislocate at any time in his life after the hip replacement. Patient will be on a walker following his surgery for couple of weeks and then switch to a cane upon physical therapy discretion. Patient will be same day surgery. Risks, benefits and alternatives of surgery reviewed including but not limited to bleeding, infection, nerve, foot drop, artery and/or tissue damage, fracture, VTE, leg length discrepancy, dislocation, need for hip precautions, continued pain and expected post-operative course. He will need a CT scan for makoplasty templating. He may have incisional pain for about 3 months. He will need to do formal physical therapy. He will need an antibiotic for any dental procedures for the first year after surgery. Tentative surgery date November 28, 2023 same-day surgery. (more content not included)... Normal [facility] XR HIP 3V PELV+ AP/LAT RTon 08-18-2023 XR HIP 3V PELV+ AP/LAT RT * * *Final Report* * * DATE OF EXAM: Aug 18 2023 7:46AM MDX 5352 - XR HIP 3V PELV+ AP/LAT RT / PROCEDURE REASON: multiple diagnoses * * * * Physician Interpretation * * * * Pelvis and right hip HISTORY: Indication: Status post hip surgery Avascular necrosis of bone of hip, right (HCC) Bilateral hip pain Bilateral hip pain TECHNIQUE: Images: XR HIP 3V PELV+ AP/LAT RT Comparison: 07/27/2023 RESULT: Findings: Pelvis: No fractures or dislocations are seen. Areas of lucency surrounded by sclerosis in the femoral heads bilaterally similar to the previous study. No significant narrowing of the hip joints. Right hip: No fractures or dislocations are seen. IMPRESSION: Findings of osteonecrosis both hips again noted Legal Arbitrator: BARBIE Transcribe Date/Time: Aug 18 2023 1:02P Dictated by : RAJANI MCCAIN DO This examination was interpreted and the report reviewed and electronically signed by: RAJANI MCCAIN DO on Aug 18 2023 1:03PM EST [id number] Normal [facility] XR Pelvis and Hip - right AP and Lateral frogon 08-18-2023 [facility] CNOVon 07-27-2023 CNOV Office Visit (ORTHIN ) THOMAS MATIAS ([id number]) 1980 M Date Time Provider Department 07/27/23 12:30 PM GABINO BERG During your visit today, we recorded the following information about you: Gabino Berg MD 07/27/2023 11:42 AM Signed Post-Op Visit Patient: Thomas Matias : 1980 Date of Surgery:06/14/2023 Procedure: Bilateral hip core decompression [44133] Right iliac crest and proximal tibia bone marrow aspiration/harvest, centrifugation, and reinjection/ autologous transplantation into the necrotic lesion [88587] Bilateral hip injection of platelet rich plasma, including harvesting and preparation [0232T] HPI: Thomas Matias is a 42 year old male who presents s/p Bilateral hip core decompression. The pain has improved since surgery. The patient denies wound healing difficulty, fevers, or chills. PAIN EVALUATION No data found in the last 1 encounters. DVT prophylaxis/ Analgesic Medication: See medication list Review of Systems, Past Medical History, Past Surgical History, Family History, and Social History: Reviewed and charted into [email or web address]. Allergies: Patient has no known allergies. Medications: Current Outpatient Medications: aspirin 325 mg tablet omeprazole (PRILOSEC) 20 mg capsule Physical Exam: PE reveals a male with the following vitals signs: There were no vitals taken for this visit. The patient is oriented to person, place and time, and is well-appearing. The patient has a stable gait. Hip exam: The patient is able to smoothly range the hips. ROM - Hip Flexion: 100 Hip Extension: 10 Incision: healing well Radiology Findings: (I have reviewed radiology images and reports). 07/27/23 XR Bilat hips - stable appearance of femoral head architecture bilat hips Assessment: (Z98.890) Status post hip surgery - Bilat hip core (primary encounter diagnosis) Plan: Based upon the evaluation today and after discussions with the patient, we will proceed with the following: -Pain control: oral regimen -PT: per protocol - WBAT -RTC 6 months with XR Bilat hips s/p core All questions were answered in detail, and the patient was pleased with the plan of care. Referring Provider: GABINO BERG [[id number]] Allergies As of Date: 07/27/2023 (No Known Allergies) Date Reviewed: 07/27/2023 Reviewed by: Theo Rhoades MA - Fully Assessed Reason for Visit: Post Op [174] Post Op [174] Primary Visit Diagnosis:Status post hip surgery - Bilat hip core [Z98.890] Prescriptions as of 07/27/2023 - aspirin 325 mg tablet Take 1 tablet by mouth two times a day. - omeprazole (PRILOSEC) 20 mg capsule Take 1 capsule by mouth once daily. Problem List As Of Date 07/27/2023 Noted Resolved Obesity (BMI 30.0-34.9) [E66.9] 06/09/2023 Disposition: Return in about 6 months (around 01/27/2024) for Imaging Before Appointment. Follow-up and Disposition History for Encounter Date Provider Department Center 07/27/2023 [id number] BERG [facility] Indp Encounter Status:Closed by GABINO BERG on 07/27/23 Normal [facility] XR HIP DOMITILA 5V PEL+ AP/LAT EA HIPon 07-27-2023 XR HIP DOMITILA 5V PEL+ AP/LAT EA HIP * * *Final Report* * * DATE OF EXAM: Jul 27 2023 11:34AM CCX 5353 - XR HIP DOMITILA 5V PEL+ AP/LAT EA HIP / PROCEDURE REASON: multiple diagnoses * * * * Physician Interpretation * * * * HISTORY (as given from clinical provider): Avascular necrosis of bone of hip, right (HCC) Avascular necrosis of bone of hip, left (HCC) Bilateral hip pain Bilateral hip pain. Additional history provided by the performing technologist (if any): post op f/u TECHNIQUE: XR HIP DOMITILA 5V PEL+ AP/LAT EA HIP COMPARISON: 06/14/2023 RESULT: Geographic region of lucency with surrounding sclerosis in the femoral heads bilaterally compatible with osteonecrosis. No articular surface collapse. Evidence of prior core decompression procedure bilaterally. Mild axial narrowing of the hip joints. SI joints are normal. No other significant abnormality. Impression: Osteonecrosis of the femoral heads bilaterally without articular surface collapse. Legal Arbitrator: ROBERTS CHAPEL Transcribe Date/Time: Jul 27 2023 12:47P Dictated by : MELISSA ACEVEDO MD This examination was interpreted and the report reviewed and electronically signed by: MELISSA ACEVEDO MD on Jul 27 2023 12:48PM EST [id number] Normal [facility] XR HIP BILATERAL 5V PEL/AP/L AT EACH HIPon 07-27-2023 * * *Final Report* * * DATE OF EXAM: Jul 27 2023 11:34AM CCX 5353 - XR HIP DOMITILA 5V PEL+ AP/LAT EA HIP / PROCEDURE REASON: multiple diagnoses * * * * Physician Interpretation * * * * HISTORY (as given from clinical provider): Avascular necrosis of bone of hip, right (HCC) Avascular necrosis of bone of hip, left (HCC) Bilateral hip pain Bilateral hip pain. Additional history provided by the performing technologist (if any): post op f/u TECHNIQUE: XR HIP DOMITILA 5V PEL+ AP/LAT EA HIP COMPARISON: 06/14/2023 RESULT: Geographic region of lucency with surrounding sclerosis in the femoral heads bilaterally compatible with osteonecrosis. No articular surface collapse. Evidence of prior core decompression procedure bilaterally. Mild axial narrowing of the hip joints. SI joints are normal. No other significant abnormality. Impression: Osteonecrosis of the femoral heads bilaterally without articular surface collapse. Legal Arbitrator: [facility]ITAL[facility] Transcribe Date/Time: Jul 27 2023 12:47P Dictated by : MELISSA ACEVEDO MD This examination was interpreted and the report reviewed and electronically signed by: MELISSA ACEVEDO MD on Jul 27 2023 12:48PM EST DIVISION OF RADIOLOGY Provider, [facility] - 07/27/2023 * * *Final Report* * * DATE OF EXAM: Jul 27 2023 11:34AM CCX 5353 - XR HIP DOMITILA 5V PEL+ AP/LAT EA HIP / PROCEDURE REASON: multiple diagnoses * * * * Physician Interpretation * * * * HISTORY (as given from clinical provider): Avascular necrosis of bone of hip, right (HCC) Avascular necrosis of bone of hip, left (HCC) Bilateral hip pain Bilateral hip pain. Additional history provided by the performing technologist (if any): post op f/u TECHNIQUE: XR HIP DOMITILA 5V PEL+ AP/LAT EA HIP COMPARISON: 06/14/2023 RESULT: Geographic region of lucency with surrounding sclerosis in the femoral heads bilaterally compatible with osteonecrosis. No articular surface collapse. Evidence of prior core decompression procedure bilaterally. Mild axial narrowing of the hip joints. SI joints are normal. No other significant abnormality. Impression: Osteonecrosis of the femoral heads bilaterally without articular surface collapse. Legal Arbitrator: ROBERTS CHAPEL Transcribe Date/Time: Jul 27 2023 12:47P Dictated by : MELISSA ACEVEDO MD This examination was interpreted and the report reviewed and electronically signed by: MELISSA ACEVEDO MD on Jul 27 2023 12:48PM EST [facility] Radiology Study observation (narrative) Gerry Reid XR HIP BILATERAL 5V PEL/AP/L AT EACH HIPOrdered By: [facility] Provider on 07-27-2023 [facility] ANES POSTPROC EVALon 024 ANES POSTPROC EVAL HNO ID: [id number] Author: GREGG ELLISON MD Service: Anesthesiology Author Type: Anesthesiologist Type: Anesthesia Postprocedure Evaluation Filed: 06/14/2023 15:56 Note Text: POST ANESTHESIA EVALUATION NOTE : 1980 Procedure Summary Date: 06/14/23 Room / Location: [place] [address] / OR Anesthesia Start: 1202 Anesthesia Stop: 1322 Procedure: INCISION, BONE CORTEX, PELVIS AND/OR HIP JOINT (Bilateral: Hip) Diagnosis: Avascular necrosis of bone of hip, right (HCC) Avascular necrosis of bone of hip, left (HCC) Bilateral hip pain Pre-op testing (Avascular necrosis of bone of hip, right (HCC) [M87.051]) (Avascular necrosis of bone of hip, left (HCC) [M87.052]) (Bilateral hip pain [M25.551, M25.552]) (Pre-op testing [Z01.818]) Surgeons: Gabino Berg MD Responsible Provider: Gregg Ellison MD Anesthesia Type: general ASA Status: 2 Anesthesia Type: general Airway Type: LMA Last Vitals Vitals Value Taken Time BP 156/100 06/14/23 1431 Temp 36.1 ?C (97 ?F) 06/14/23 1430 HR SpO2 62 06/14/23 1432 Resp 16 06/14/23 1432 SpO2 96 % 06/14/23 1432 Vitals shown include unfiled device data. Post Anesthesia Patient Status Patient Evaluation: PACU. PACU/ICU Patient Condition: stable. Anticipated Disposition: phase 2 then home. Neurological Status: aware and responsive. Pulmonary Status: breathing comfortably on room air Airway Control: returned to baseline unsupported. Cardiovascular Status: stable. Pain Management: clinically adequate Postoperative Hydration: acceptable. Intraoperative Events: no significant anesthesia events Post Operative Nausea/Vomiting Status: no significant post operative nausea or vomiting Recommendation: continue current plan of care and further care per PACU/ICU/floor team. Anesthesia Observations No Documentation SIGNATURE: Gregg Ellison MD PATIENT NAME: Thomas Matias DATE: June 14, 2023 TIME: 3:56 PM CSN: [id number] [facility] ANES PRE-OPon 06-14-2023 ANES PRE-OP HNO ID: [id number] Author: GREGG ELLISON MD Service: Anesthesiology Author Type: Anesthesiologist Type: Anesthesia Preprocedure Evaluation Filed: 06/14/2023 10:53 Note Text: ANESTHESIOLOGY DAY OF SURGERY NOTE : 1980 Procedure Information Date/Time: 06/14/23 1200 Procedure: INCISION, BONE CORTEX, PELVIS AND/OR HIP JOINT (Bilateral: Hip) - Ivette Perfuse SCP, Romel Table, Fluoro Location: MM OR02 / MM OR Surgeons: Gabino Berg MD Estimated body mass index is 33.97 kg/m? as calculated from the following: Height as of 06/09/23: 175.3 cm (5' 9). Weight as of 06/09/23: 104.3 kg (230 lb). Most recent hematocrit and potassium results: Hematocrit 43.0 06/13/2023 Potassium 3.6 06/13/2023 Relevant Problems No relevant active problems I - PHYSICAL EVALUATION AIRWAY Patient intubated: No. Tracheostomy tube not present Mallampati: II. TM distance: >3 FB. Neck ROM: full ROM without neurological symptoms. Mouth opening: adequate. Short neck: no. Thick neck: yes DENTAL Dental findings: teeth intact. Additional exam findings: yes. CARDIOVASCULAR Normal cardiovascular observations. PULMONARY Normal pulmonary observations. II - ANESTHESIA PLAN ASA Score: 2 Anesthetic Plan: general Airway type: LMA The patient is not a current smoker. NPO Status: adequate Beta Liana Administration of chronic beta liana medication planned. Monitoring Plan Monitoring plan: standard ASA. Post Procedure Analgesic Plan Postoperative analgesic plan: parenteral or oral opioids and multimodal analgesia. Informed Consent Anesthetic risks, benefits, alternatives, personnel and consent discussed: yes. Patient / Responsible Libertarian agrees to proceed: yes Patient / Surrogate agrees to blood products: Yes Significant changes in the patient condition since the History and Physical, not otherwise documented in primary service progress note: no. Potential Anesthesia issues that may suggest increased risk of complications or contraindication to planned procedure: none. No vitals data found for the desired time range. Facility-Administered Medications as of 06/14/2023 Medication Dose Route Frequency - lidocaine (PF) 10 mg/mL (1 %) 1-2 mg injection (XYLOCAINE) 0.1-0.2 mL INTRADERMAL PRN - lactated ringers iv infusion 5-30 mL/hr INTRAVENOUS CONTINUOUS - NaCl 0.9% iv flush bag 20 mL INTRAVENOUS PRN - ceFAZolin iv piggyback 2 g in D5W (iso-osmotic) 100 mL (ANCEF) 2 g INTRAVENOUS Pre-Op Once No current outpatient medications on file as of 06/14/2023. I have interviewed and examined the patient. I have reviewed the medical record and/or the pre-anesthesia evaluation, pertinent labs, and test results. This contains updated information obtained within 48 hours of Surgery/Procedure. SIGNATURE: Gregg Ellison MD PATIENT NAME: Thomas Matias DATE: June 14, 2023 TIME: 10:18 AM CSN: [id number] [facility] OPERATIVE NOon 06-14-2023 OPERATIVE NO HNO ID: [id number] Author: GABINO BERG MD Service: Orthopaedic Surgery Author Type: Physician Type: Operative Report Filed: 06/14/2023 13:20 Note Text: ORTHO OPERATIVE REPORT LOG ID: [id number] Surgery/Procedure Date: 06/14/2023 Incision/Procedure Start Time: 12:34 PM Incision Close/Procedure End Time: 1:15 PM Surgeon(s)/Procedurali st(s) and Glass Blower(s): Surgeon(s) and Role: * Gabino Berg MD - Primary Physician Glass Blower: Ousmane Kelly PA-C; Grecia Bashir PA-C Pre-Op/Pre-Procedure Diagnosis: Aseptic necrosis of head of femur Bilateral Hip pain (M25.55) Post-Op/Post-Procedure Diagnosis: Aseptic necrosis of head of femur Bilateral Hip pain (M25.55) Procedure: Bilateral hip core decompression [14302] Right iliac crest and proximal tibia bone marrow aspiration/harvest, centrifugation, and reinjection/ autologous transplantation into the necrotic lesion [33589] Bilateral hip injection of platelet rich plasma, including harvesting and preparation [0232T] Anesthesia: General Indications: This is a 42 year old male with symptomatic femoral head aseptic necrosis with pain and dysfunction refractory to non-operative measures. After extensive discussion of the risks and benefits of surgery, as well as treatment alternatives (surgical and nonsurgical), the patient elected for surgical intervention to relieve pain and to improve function. Risks discussed with the patient in the clinic pre-operatively included but were not limited to intra-operative and post-operative fracture, head collapse, chondral surface violation with trochars, progression of AVN requiring further surgical management, continued pain, and stiffness. Preoperative imaging confirmed AVN lesions without jodi head collapse. The patient received appropriate pre-operative risk stratification. Informed consent was performed, and surgical and blood consents were obtained and signed. Procedure: In the pre-operative holding area, the patient was identified, and the Bilateral lower operative extremity was confirmed by myself and marked with my initials, using a permanent marker. The patient was then brought to the operating room and positioned supine. All bony prominences were well-padded. Anesthesia was administered, and appropriate pre-operative antibiotics were given. Following satisfactory induction of anesthesia, the limbs were prepped and draped in the usual sterile fashion. Before any surgical instrumentation was passed to me by the surgical technology instructor, a formalized time-out occurred, which involves the surgeon, circulating nurse, and anesthesia staff all verifying the correct operative extremity. The initials of a surgeon on the operative team were visable on the prepped and draped operative field. With the patient under anesthesia, 30cc of the patient's whole blood was obtained from a peripheral site; this whole blood was spun down for platelet-rich plasma. An aspiration of 64cc of bone marrow from the iliac crest and proximal tibia was performed first using specializing needles coated with anticoagulant solution to prevent cell clotting. Multiple parallel bone cortex access sites were utilized to increase the yield of cells. This bone marrow was aspirated in small aliquots to avoid trauma to the aspirated cells. The bone marrow solution was placed in a centrifugation system to produce bone marrow concentrate suitable for injection. Concurrent with centrifugation, the AVN lesions were accessed sequentially. Using fluoroscopic guidance and carefully referencing of preoperative three-dimensional advanced imaging studies, the decompression instruments were malleted through the lateral cortex of the femur into the femoral neck and into the necrotic head lesions. Power was not used to avoid heat necrosis. Intraoperative fluoroscopy in multiple planes demonstrated that the instruments were within the osteonecrotic lesion. Next, the platelet-rich plasma combined with progenitor cells (bone marrow concentrate) were injected into the individual hip (Right: 6.5cc PRP plus BMA; Left: 7cc PRP plus BMA;). The coring instrument was removed taking care to place some cancellous bone into the track. Thorough irrigation was performed and appropriate hemostasis was confirmed. The lateral femoral access incisions were closed deeply with 2-0 Vicryl deep and 2-0 Biosyn superficially. All skin incisions, including those of thelateral femur and the iliac crest puncture sites, were then closed with 3-0 Nylon. Sterile dressings were placed to each incision site. Intraoperative fluoroscopy demonstrated that there was no overt evidence of fracture of the femoral neck. The patient tolerated the procedure without complication and was transported to the recovery room in stable condition. Appropriate chemical post-operative deep venous thromboprophylactic measures were established. AGA stockings were applied to (more content not included)... [facility] THERAPY NTon 06-14-2023 THERAPY NT HNO ID: [id number] Author: ARNAV MURPHY, PT Service: Physical Therapy Author Type: Physical Therapist Type: Therapy (PT/OT/Speech/Resp) Filed: 06/14/2023 15:39 Note Text: Physical Therapy Evaluation Summary SERVICE DATE: 06/14/2023 SERVICE TIME: 1440 to 1519 ROOM: Surgery (PACU 07) PT 6 Clicks Score: 16 Total Joint Replacement Discharge Readiness: Cleared from Physical Therapy DISCHARGE RECOMMENDATIONS Home Recommended Discharge Equipment: No equipment needs anticipated ASSESSMENT Response to Therapy Interventions: Good Participation in Activities, Pain, Requires Additional Time to Complete Activities PRECAUTIONS Weight Bearing Restrictions WBAT BLE with crutches Left Lower Extremity Weight Bearing Status: WBAT Right Lower Extremity Weight Bearing Status: WBAT CURRENT HOSPITAL COURSE POD #0 s/p Bilateral hip core decompression with biologic augmentation through iliac crest bone marrow aspirate harvest Relevant Past Medical History: AVN B/L hips HOME LIVING Patient Lives With: Spouse, Family Assistance Available: 24-Hour (for initial transition to home environment) Entry To Home: Stairs, With Rail Number Of Stairs Into Home: 4 Number Of Stairs To Bed/Bath: flight with HR (plan is to stay on main initially) Stairs to Bed/Bath with: Unilateral Rail Equipment Owned: Crutch(es) PRIOR FUNCTIONAL LEVEL Within Functional Limits Indep ADLs/IADLs, amb without AD, drives SUBJECTIVE Patient states he has been practicing more with his crutches at home this past week in preparation for surgery THERAPY DIAGNOSIS Reduced mobility-other, Muscle Weakness (generalized), Abnormalities of gait and mobility-other TREATMENT INTERVENTIONS Evaluation, Gait Training (45250), Therapeutic Exercise (24469) Timed Code Treatment (minutes): 24 Skilled Treatment Time (minutes): 39 TRAINING AND EDUCATION PROVIDED Assistive Device Use, Bed Mobility, Car Transfers, Exercise Program, Gait Pattern, Reduction of Deviations, Precautions/Restrictio ns, Role of Physical Therapy, Transfers, Stair Navigation THERAPEUTIC SKILLS USED Activity Dosing, Cues for Sequencing/Proper Technique for Activity, Cuing Tactile, Cuing Verbal, Movement Facilitation, Physical Assist FUNCTIONAL STATUS Bed Mobility Supine To Sit: Moderate Assistance Scooting: Moderate Assistance Transfers Sit To Stand: Minimal Assistance, Additional Information improved with practice, required cues for hand placement and proper sequencing for push to stand Stand To Sit: Contact Guard Assistance, Additional Information cues for crutch safety, hand placement and controlled descent Bed to Chair Gait Minimal Assistance, Contact Guard Assistance, Additional Information improved with practice and gait distance; hand human services assistant readjusted for improved fit Gait Device: Crutch(es) Gait Distance (feet): 30 ft x 2 Stairs Contact Guard Assistance, Additional Information Stairs Device: Crutch(es), Rail Number of Stairs: 2 step to pattern, safety cues provided GOALS Patient will demonstrate progress with functional mobility to allow safe discharge to home with available support and/or physical assistance. Able to Perform HEP with: Verbal Cues Only Transfer Supine to/from Sit with: Supervision Transfer Sit to/from Stand with: Supervision Ambulate with: Supervision Distance: 50 ft Device: Crutch(es) Ambulate Up and Down Steps with: Supervision Number of Steps: 12 Device: Crutch(es), Rail Rehab Potential: Excellent PLAN PT Frequency: Once Daily Treatment Interventions: Education, Strengthening, Functional Mobility Training, Balance Training Plan for Next Visit: Bed Mobility, Sit to Stand Transfers, Gait Training, Exercise Instruction/Handout, Stair Training SIGNATURE: Arnav Murphy PT PATIENT NAME: Thomas Matias DATE: June 14, 2023 TIME: 3:39 PM [facility] XR HIP 1V LTon 06-14-2023 XR HIP 1V LT * * *Final Report* * * DATE OF EXAM: Jun 14 2023 1:39PM MMO [id number] - XR HIP 1V LT / PROCEDURE REASON: BILAT HIPS * * * * Physician Interpretation * * * * XR HIP 1V LT HISTORY: BILAT HIPS. Fluoroscopy used during procedure. TECHNIQUE: 6 fluoroscopic image(s) submitted from procedure. The procedure was performed by another clinician. Fluoroscopic Radiation Summary: Plane A, Air Kerma: 3.5 mGy Dose Area Product (DAP): Fluoro time: 0:11 min:sec RESULT: Images of the hip obtained for localization purposes during the procedure. IMPRESSION: Correlate with procedure report. Legal Arbitrator: ROBERTS CHAPEL Transcribe Date/Time: Jun 14 2023 1:43P Dictated by : JOSE DAVID GUTIERREZ MD This examination was interpreted and the report reviewed and electronically signed by: JOSE DAVID GUTIERREZ MD on Jun 14 2023 1:43PM EST [id number]-14-2023 XR HIP 1V RT * * *Final Report* * * DATE OF EXAM: Jun 14 2023 1:40PM MMO [id number] - XR HIP 1V RT / PROCEDURE REASON: BILAT HIPS * * * * Physician Interpretation * * * * RIGHT XR HIP 1V TECHNIQUE: 6 images: 6 views, obtained under fluoroscopic guidance Fluoroscopy time = 0:10 (minutes:seconds). COMPARISON: No relevant prior INDICATION: Hip pain, aseptic necrosis femoral head RESULT: Fluoroscopy is provided. Surgical materials project over the hip. - IMPRESSION: See surgeon's report for complete details of the procedure. Legal Arbitrator: ROBERTS CHAPEL Transcribe Date/Time: Jun 14 2023 1:25P Dictated by : MANAN CHANCE MD This examination was interpreted and the report reviewed and electronically signed by: MANAN CHANCE MD on Jun 14 2023 1:31PM EST [id number] W Auto Differential pane l (Bld)on 06-13-2023 Basophils (Bld) [#/Vol] 0.04 10*3/uL Normal <0.11 [facility] Comment on above: Order Comment: Speci men Type: BLOOD SPECIMEN Ordering Facility: [facility] Address: [address] [place] [address] Performed By: #### 5 7021-8 #### [facility] CLIA [id number] [address] [place] [address] [place] Basophils/100 WBC (Bld) 0.4 % Normal M [facility] Comment on above: Order Comment: Speci men Type: BLOOD SPECIMEN Ordering Facility: [facility] Address: [address] [place] [address] Performed By: #### 5 7021-8 #### [facility] CLIA [id number] [address] [place] Differential cell count method Nom (Bld) Auto Normal [facility] Comment on above: Order Comment: Speci men Type: BLOOD SPECIMEN Ordering Facility: [facility] Address: [address] [place] [address] Performed By: #### 5 7021-8 #### [facility] CLIA [id number] [address] [place] [address] [place] Eosinophils (Bld) [#/Vol] 0.15 10*3/uL Normal <0.46 [facility] Comment on above: Order Comment: Speci men Type: BLOOD SPECIMEN Ordering Facility: [facility] Address: [address] [place] [address] Performed By: #### 5 7021-8 #### [facility] CLIA [id number] [address] [place] Eosinophils/100 WBC (Bld) 1.7 % Normal [facility] Comment on above: Order Comment: Speci men Type: BLOOD SPECIMEN Ordering Facility: [facility] Address: [address] [place] [address] Performed By: #### 5 7021-8 #### [facility] CLIA [id number] [address] [place] Erythrocyte distribution width (RBC) [Ratio] 12.7 % Normal 11.5-15.0 [facility] Comment on above: Order Comment: Speci men Type: BLOOD SPECIMEN Ordering Facility: [facility] Address: [address] [place] [address] Performed By: #### 5 7021-8 #### [facility] CLIA [id number] [address] [place] Hematocrit (Bld) [Volume fraction] 43.0 % Normal 39.0-51.0 [facility] Comment on above: Order Comment: Speci men Type: BLOOD SPECIMEN Ordering Facility: [facility] Address: [address] [place] [address] Performed By: #### 5 7021-8 #### [facility] CLIA [id number] [address] [place] Hemoglobin (Bld) [Mass/Vol] 14.4 g/dL Normal 13.0-17.0 [facility] Comment on above: Order Comment: Speci men Type: BLOOD SPECIMEN Ordering Facility: [facility] Address: [address] [place] [address] Performed By: #### 5 7021-8 #### [facility] CLIA [id number] [address] [place] [address] [place] Immature granulocytes (Bld) [#/Vol] 0.03 10*3/uL Normal <0.10 [facility] Comment on above: Order Comment: Speci men Type: BLOOD SPECIMEN Ordering Facility: [facility] Address: [address] [place] [address] Performed By: #### 5 7021-8 #### [facility] CLIA [id number] [address] Immature granulocytes/100 WBC (Bld) 0.3 % Normal [facility] Comment on above: Order Comment: Speci men Type: BLOOD SPECIMEN Ordering Facility: [facility] Address: [address] [place] [address] Performed By: #### 5 7021-8 #### [facility] CLIA [id number] [address] [place] Lymphocytes (Bld) [#/Vol] 3.00 10*3/uL Normal 1.00-4.00 [facility] Comment on above: Order Comment: Speci men Type: BLOOD SPECIMEN Ordering Facility: [facility] Address: [address] [place] [address] Performed By: #### 5 7021-8 #### [facility] CLIA [id number] [address] Lymphocytes/100 WBC (Bld) 33.3 % Normal [facility] Comment on above: Order Comment: Speci men Type: BLOOD SPECIMEN Ordering Facility: [facility] Address: [address] [place] [address] Performed By: #### 5 7021-8 #### [facility] CLIA [id number] [address] MCH (RBC) [Entitic mass] 31.4 pg Normal 26.0-34.0 [facility] Comment on above: Order Comment: Speci men Type: BLOOD SPECIMEN Ordering Facility: [facility] Address: [address] [place] [address] Performed By: #### 5 7021-8 #### [facility] CLIA [id number] [address] OF [facility] MCHC (RBC) [Mass/Vol] 33.5 g/dL Normal 30.5-36.0 [facility] Comment on above: Order Comment: Speci men Type: BLOOD SPECIMEN Ordering Facility: [facility] Address: [address] [place] [address] Performed By: #### 5 7021-8 #### [facility] CLIA [id number] [address] MCV (RBC) [Entitic vol] 93.9 fL Normal 80.0-100.0 [facility] Comment on above: Order Comment: Speci men Type: BLOOD SPECIMEN Ordering Facility: [facility] Address: [address] [place] [address] Performed By: #### 5 7021-8 #### [facility] CLIA [id number] [address] Monocytes (Bld) [#/Vol] 0.67 10*3/uL Normal <0.87 [facility] Comment on above: Order Comment: Speci men Type: BLOOD SPECIMEN Ordering Facility: [facility] Address: [address] [place] [address] Performed By: #### 5 7021-8 #### [facility] CLIA [id number] [address] Monocytes/100 WBC (Bld) 7.4 % Normal [facility] Comment on above: Order Comment: Speci men Type: BLOOD SPECIMEN Ordering Facility: [facility] Address: [address] [place] [address] Performed By: #### 5 7021-8 #### [facility] CLIA [id number] [address] [place] [address] [place] Neutrophils (Bld) [#/Vol] 5.11 10*3/uL Normal 1.45-7.50 [facility] Comment on above: Order Comment: Speci men Type: BLOOD SPECIMEN Ordering Facility: [facility] Address: [address] [place] [address] Performed By: #### 5 7021-8 #### [facility] CLIA [id number] [address] [place] Neutrophils/100 WBC (Bld) 56.9 % Normal [facility] Comment on above: Order Comment: Speci men Type: BLOOD SPECIMEN Ordering Facility: [facility] Address: [address] [place] [address] Performed By: #### 5 7021-8 #### [facility] CLIA [id number] [address] [place] Nucleated RBC (Bld) [#/Vol] 10*3/uL Normal <0.01 [facility] Comment on above: Order Comment: Speci men Type: BLOOD SPECIMEN Ordering Facility: [facility] Address: [address] [place] [address] Performed By: #### 5 7021-8 #### [facility] CLIA [id number] [address] Nucleated RBC/100 WBC (Bld) [Ratio] 0.0 /100 WBC Normal [facility] Comment on above: Order Comment: Speci men Type: BLOOD SPECIMEN Ordering Facility: [facility] Address: [address] [place] [address] Performed By: #### 5 7021-8 #### [facility] CLIA [id number] [address] Platelet mean volume (Bld) [Entitic vol] 9.8 fL Normal 9.0-12.7 [facility] Comment on above: Order Comment: Speci men Type: BLOOD SPECIMEN Ordering Facility: [facility] Address: [address] [place] [id number] Performed By: #### 5 7021-8 #### [facility] CLIA [id number] [address] [place] Platelets (Bld) [#/Vol] 373 10*3/uL Normal 150-400 [facility] Comment on above: Order Comment: Speci men Type: BLOOD SPECIMEN Ordering Facility: [facility] Address: [address] [place] [address] Performed By: #### 5 7021-8 #### [facility] CLIA [id number] [address] [place] RBC (Bld) [#/Vol] 4.58 10*6/uL Normal 4.20-6.00 [facility] Comment on above: Order Comment: Speci men Type: BLOOD SPECIMEN Ordering Facility: [facility] Address: [address] [place] [address] Performed By: #### 5 7021-8 #### [facility] CLIA [id number] [address] [place] WBC (Bld) [#/Vol] 9.00 10*3/uL Normal 3.70-11.00 [facility] Comment on above: Order Comment: Speci men Type: BLOOD SPECIMEN Ordering Facility: [facility] Address: [address] [place] [address] Performed By: #### 5 7021-8 #### [facility] CLIA [id number] [address] OF [facility] CNPNon 06-13-2023 CNPN Telephone (PREANME) THOMAS MATIAS ([id number]) 1980 Date Time Provider Department 06/13/23 OUSMANE MCDANIELS During your visit today, we recorded the following information about you: Ousmane Mcdaniels LPN 06/13/2023 10:29 AM Signed Please review pt's unconfirmed EKG in scanned docs.Thanks! Allergies As of Date: 06/13/2023 (No Known Allergies) Date Reviewed: 06/09/2023 Reviewed by: Pam Castaneda PA-C - Fully Assessed Prescriptions as of 06/13/2023 - acetaminophen (TYLENOL ORAL) Take by mouth. Problem List As Of Date 06/13/2023 Noted Resolved Obesity (BMI 30.0-34.9) [E66.9] 06/09/2023 Encounter Status:Closed by OUSMANE MCDANIELS on 06/13/23 [facility] CONFIRM BLOOD TYPEon 024 ABO O [facility] Comment on above: Order Comment: Speci men Type: BLOOD SPECIMEN Ordering Facility: [facility] Address: [address] [place] [address] Performed By: #### C ONABO #### [facility] CLIA [id number] [address] [place] [address] [place] Rh Nom (Bld) Positive [facility] Comment on above: Order Comment: Speci jose Type: BLOOD SPECIMEN Ordering Facility: [facility] Address: [address] [place] [address] Performed By: #### C ONABO #### [facility] CLIA [id number] [address] [place] Comprehensive metabolic 2000 panelon 06-13-2023 Albumin [Mass/Vol] 4.3 g/dL Normal 3.9-4.9 [facility] Comment on above: Order Comment: Speci men Type: BLOOD SPECIMEN Ordering Facility: [facility] Address: [address] [place] [address] Performed By: #### 5 7021-8 #### [facility] CLIA [id number] [address] [place] ALP [Catalytic activity/Vol] 111 U/L Normal 38-113 [facility] Comment on above: Order Comment: Speci men Type: BLOOD SPECIMEN Ordering Facility: [facility] Address: [address] [place] [address] Performed By: #### 5 7021-8 #### [facility] CLIA [id number] [address] [place] ALT [Catalytic activity/Vol] 20 U/L Normal 10-54 [facility] Comment on above: Order Comment: Speci men Type: BLOOD SPECIMEN Ordering Facility: [facility] Address: [address] [place] [address] Performed By: #### 5 7021-8 #### [facility] CLIA [id number] [address] [place] [address] [place] Anion gap [Moles/Vol] 12 mmol/L Normal 9-18 [facility] Comment on above: Order Comment: Speci men Type: BLOOD SPECIMEN Ordering Facility: [facility] Address: [address] [place] [address] Performed By: #### 5 7021-8 #### [facility] CLIA [id number] [address] [place] AST [Catalytic activity/Vol] 34 U/L Normal 14-40 [facility] Comment on above: Order Comment: Speci men Type: BLOOD SPECIMEN Ordering Facility: [facility] Address: [address] [place] [address] Performed By: #### 5 7021-8 #### [facility] CLIA [id number] [address] [place] Bilirubin [Mass/Vol] 0.3 mg/dL Normal 0.2-1.3 [facility] Comment on above: Order Comment: Speci men Type: BLOOD SPECIMEN Ordering Facility: [facility] Address: [address] [place] [address] Performed By: #### 5 7021-8 #### [facility] CLIA [id number] [address] [place] Calcium [Mass/Vol] 9.4 mg/dL Normal 8.5-10.2 [facility] Comment on above: Order Comment: Speci men Type: BLOOD SPECIMEN Ordering Facility: [facility] Address: [address] [place] [address] Performed By: #### 5 7021-8 #### [facility] CLIA [id number] [address] [place] [address] [place] Chloride [Moles/Vol] 104 mmol/L Normal 97-105 [facility] Comment on above: Order Comment: Risa men Type: BLOOD SPECIMEN Ordering Facility: [facility] Address: [address] [place] [address] Performed By: #### 5 7021-8 #### [facility] CLIA [id number] [address] [place] [address] [facility] [place] CO2 [Moles/Vol] 25 mmol/L Normal 22-30 [facility] Comment on above: Order Comment: Risa men Type: BLOOD SPECIMEN Ordering Facility: [facility] Address: [address] [place] [address] Performed By: #### 5 7021-8 #### [facility] CLIA [id number] [address] Creatinine [Mass/Vol] 0.97 mg/dL Normal 0.73-1.22 [facility] Comment on above: Order Comment: Risa men Type: BLOOD SPECIMEN Ordering Facility: [facility] Address: [address] [place] [address] Performed By: #### 5 7021-8 #### [facility] CLIA [id number] [address] Creatinine and Glomerular filtration rate.predicted panel (S/P/Bld) 100 mL/min/1.73m??? Normal >=60 [facility] Comment on above: Order Comment: Risa men Type: BLOOD SPECIMEN Ordering Facility: [facility] Address: [address] [place] [address] Result Comment: Lakeisha mated Glomerular Filtration Rate (eGFR) is calculated using the 2020 CKD-EPI creatinine equation. This equation utilizes serum creatinine, sex, and age as parameters. The creatinine assay has traceable calibration to isotope dilution-mass spectrometry. Refer to KDIGO guidelines for clinical interpretation. In patients with unstable renal function, e.g. those with acute kidney injury, the eGFR may not accurately reflect actual GFR. Performed By: #### 5 7021-8 #### [facility] CLIA [id number] [address] [place] [address] [place] Glucose [Mass/Vol] 106 mg/dL High 74-99 [facility] Comment on above: Order Comment: Risa garcia Type: BLOOD SPECIMEN Ordering Facility: [facility] Address: [address] [place] [address] Result Comment: The [place] Diabetes Association (ADA) provides guidance for cutoff values for fasting glucose and random glucose. The ADA defines fasting as no caloric intake for at least 8 hours. Fasting plasma glucose results between 100 to 125 mg/dL indicate increased risk for diabetes (prediabetes). Fasting plasma glucose results greater than or equal to 126 mg/dL meet the criteria for diagnosis of diabetes. In the absence of unequivocal hyperglycemia, results should be confirmed by repeat testing. In a patient with classic symptoms of hyperglycemia or hyperglycemic crisis, random plasma glucose results greater than or equal to 200 mg/dL meet the criteria for diagnosis of diabetes. Reference: Standards of Medical Care in Diabetes 2016, [place] [employer] Association. Diabetes Care. 2016.39(Suppl 1). Performed By: #### 5 7021-8 #### [facility] CLIA [id number] [address] [place] [address] [place] Potassium [Moles/Vol] 3.6 mmol/L Low 3.7-5.1 [facility] Comment on above: Order Comment: Risa garcia Type: BLOOD SPECIMEN Ordering Facility: [facility] Address: [address] [place] [address] Performed By: #### 5 7021-8 #### [facility] CLIA [id number] [address] [place] [address] [place] Protein [Mass/Vol] 7.3 g/dL Normal 6.3-8.0 [facility] Comment on above: Order Comment: Taiwoi men Type: BLOOD SPECIMEN Ordering Facility: [facility] Address: [address] [place] [address] Performed By: #### 5 7021-8 #### [facility] CLIA [id number] [address] [place] [address] [place] Sodium [Moles/Vol] 141 mmol/L Normal 136-144 [facility] Comment on above: Order Comment: Speci men Type: BLOOD SPECIMEN Ordering Facility: [facility] Address: [address] [place] [address] Performed By: #### 5 7021-8 #### [facility] CLIA [id number] [address] Urea nitrogen [Mass/Vol] 8 mg/dL Low 9-24 [facility] Comment on above: Order Comment: Speci men Type: BLOOD SPECIMEN Ordering Facility: [facility] Address: [address] [place] [address] Performed By: #### 5 7021-8 #### [facility] CLIA [id number] [address] ECG COMPLETEon 06-13-2023 ECG COMPLETE Ventricular Rate : 6 8 BPM Atrial Rate : 68 BPM P-R Interval : 172 ms QRS Duration : 98 ms Q-T Interval : 426 ms QTC Calculation(Bazett) : 452 ms Calculated P [place] : 31 degrees Calculated R [place] : -45 degrees Calculated T [place] : 41 degrees NORMAL SINUS RHYTHM LEFT AXIS DEVIATION PULMONARY DISEASE PATTERN NONSPECIFIC T WAVE ABNORMALITY ABNORMAL ECG NO PREVIOUS ECGS AVAILABLE Confirmed by MD HOLLAND QARAB ([id number]) on 06/13/2023 11:42:51 AM NAME : THOMAS MATIAS PID : [id number] : 1980 Gender : Male Race : Unknown ORD : [id number] Procedure Date : Jun 13 2023 07:48:18 Edit Date : Jun 13 2023 11:42:54 Diagnosis: NORMAL SINUS RHYTHM LEFT AXIS DEVIATION PULMONARY DISEASE PATTERN NONSPECIFIC T WAVE ABNORMALITY ABNORMAL ECG NO PREVIOUS ECGS AVAILABLE Confirmed by MD HOLLAND QARAB ([id number]) on 06/13/2023 11:42:51 AM Test Reason : HCS Location : 10 : PAT/ Overread By : MD HOLLAND QARAB Edited By : MD HOLLAND QARAB Referred By : OUSMANE KELLY Acquired by : ESPERANZA [facility] TYPE AND SCREEN,30 DAYon ABO O [facility] Comment on above: Order Comment: Speci men Type: BLOOD SPECIMEN Ordering Facility: [facility] Address: [address] [place], [place] [id number] Performed By: #### T SCR30 #### [facility] CLIA [id number] [address] HISTORICAL AB SCR STATUS Negative [facility] Comment on above: Order Comment: Speci men Type: BLOOD SPECIMEN Ordering Facility: [facility] Address: [address] [place] [address] Performed By: #### T SCR30 #### [facility] CLIA [id number] [address] Rh Nom (Bld) Positive [facility] Comment on above: Order Comment: Speci men Type: BLOOD SPECIMEN Ordering Facility: [facility] Address: [address] [place] [address] Performed By: #### T SCR30 #### [facility] CLIA [id number] [address] HISTORY PHYSICALon HISTORY PHYSICAL HNO ID: [id number] Author: PAM CASTANEDA PA-C Service: ? Author Type: Physician Glass Blower Type: H&P Filed: 06/09/2023 11:08 Note Text: HISTORY AND PHYSICAL EXAMINATION SERVICE DATE: 06/09/2023 SERVICE TIME: 7:27 AM PRIMARY CARE PHYSICIAN: Carine Moreno DO Assessment Patient has the following medical conditions which may affect darcie-operative course: Obesity (BMI 30.0-34.9) Assessment: BMI 34 Spencer Activity Status Index: METS: Climb a flight of stairs or walk up a hill (5.50 METs) DASI Score: 5.5 Patient denies any chest pain or undue shortness of breath with the above physical activity. Clinical Frailty Scale: 2. Well STOP-Bang Score: Snores loudly Male patient Denies feeling tired, fatigued, or sleepy during the daytime Has not been observed to stop breathing or choking/gasping during sleep Denies having high blood pressure BMI less than or equal to 35 kg/m2 Patient 50 years old or younger Does not have a large neck STOP-Bang Score: 2 [id number] Score: [id number] Score: 0 ANESTHESIA FINDINGS: Intubation History: No history of difficult intubation Significant Anesthesia Considerations: none Airway History: No history of difficult airway I - PHYSICAL EVALUATION AIRWAY Patient intubated: No. Tracheostomy tube not present Mallampati: III. TM distance: >3 FB. Neck ROM: full ROM without neurological symptoms. Mouth opening: adequate. Short neck: no. Thick neck: no Cerrato present: no Lip Bite Test: III Microretrognathia/Micr onagthia/Recessed Chin: Yes DENTAL Dental findings: missing tooth/teeth. Additional comments: Veneers- front upper. II - ANESTHESIA PLAN Anesthetic plan additional comments: *PACC/TCI - anesthesia choice. Beta Liana Monitoring Plan Post Procedure Analgesic Plan Prepared for Surgery: optimally prepared for surgery, pending [see comment]. Labs and ECG- to be done 06/13/2023 at [facility] CONSULTS: Patient does not require consults for optimization at this time Planned Anesthetic: anesthesia choice The Following Tests/Procedures Have Been Initiated: Orders Placed This Encounter acetaminophen (TYLENOL ORAL) Sig: Take by mouth. This is a virtual visit using [employer] video visit. It required patient-provider interaction for the medical decision making as documented below. REASON FOR VISIT: Thomas Matias is a 42 year old male who is scheduled for Procedure(s) with comments: INCISION, BONE CORTEX, PELVIS AND/OR HIP JOINT (Bilateral) - Ivette Perfuse SCP, Romel Table, Fluoro at the request of Dr. Gabino Berg for consultation. My final recommendation will be communicated back to the requesting physician by way of shared medical record or letter. Subjective The patient has the following: ACTIVE PROBLEM LIST Obesity (Bmi 30.0-34.9) COVID-19 Immunization Status Overdue - Covid-19 Vaccine (1) Never done No completion, postpone, frequency change, or communication history exists for this topic. CHIEF COMPLAINT: Avascular necrosis of bone of hip, right HPI: Thomas Matias is a 42 year old male who is scheduled for Procedure(s) with comments: INCISION, BONE CORTEX, PELVIS AND/OR HIP JOINT (Bilateral) - Ivette Perfuse SCP, Romel Table, Fluoro at the request of Dr. Gabino Berg for 06/14/2023. He reports bilateral hip pain R>L since 03/2023. Pain is worse with activity. He takes tylenol with mild improvement in symptoms. He reports hospitalization for COVID ~2 years ago with high dose steroids that he believes may have led to avascular necrosis. This is a virtual visit. The visit was conducted using [employer] video visit. It required patient-provider interaction for the medical decision making as documented below. I have communicated my name and active licensure. The patient's identity and physical location were verified at the time of this visit. Either the patient or their legal digital media representative has been informed of the risks and benefits of and alternatives to treatment through a remote evaluation and consents to proceed with the evaluation remotely. REVIEW OF SYSTEMS: General: No weight loss, malaise or fevers. Neurological: No history of TIA's, stroke, [employer] tumor, impaired sensorium, hemiplegia, paraplegia or quadraplegia. No neurological symptoms or problems. Respiratory: No history of current cough or dyspnea, or pneumonia in the past 6 weeks. No history of respiratory/pulmonary symptoms or problems. Cardiovascular: No history of HTN requiring medication, no history of angina, CHF, DC, cardiac surgery or stents. Denies rest pain, gangrene or revascularization/ampu tation for PVD. No history of cardiovascular symptoms or problems. GI: No history of GI symptoms or problems. No history of esophageal varices, recent ascites, or ETOH greater than 2 drinks per day. : No history of dysuria, frequency or incontinence, stones or chronic kidney disease. No difficulty urinating, nocturia > (more content not included)... Normal [facility] CNOVon 06-05-2023 CNOV Office Visit (ORTHMN ) THOMAS MATIAS ([id number]) 1980 M Date Time Provider Department 06/05/23 11:15 AM GABINO EBRG During your visit today, we recorded the following information about you: Weight Height 104.3 kg 1.753 m Gabino Berg MD 06/05/2023 12:57 PM Signed Patient: Thomas Brandon Maritza : 1980 Providers Referring physician: Doyle Urbina Chief complaint: Patient presents with: Hip Pain Bilat hip AVN Patient seen in subspecialty orthopedic hip consultation at the request of Doyle Urbina. The final recommendations will be communicated back to the requesting clinician by way of the shared medical record or letter via US mail. HPI: Thomas Matias is a 42 year old male seen with a 2 months history of bilateral hip pain. The onset of pain has been actue, and the pain is staying the same.. The pain primarily localizes: right groin pain, left groin pain, right buttock pain, and left buttock pain. PAIN EVALUATION 06/05/2023 1118 Pain Level: 5 Description: Aching Duration Amount of Time: 2 Duration Units: Months Frequency: Intermittent Intervention/Comfort measure: Medication;Reposition The patient denies preceding traumatic injury. The patient does have pain with weight-bearing. The patient does not have pain at night. The patient has no difficulty with placing shoes and socks. The pain is exacerbated with ADL's, managing stairs, prolonged standing, recreational activities, and walking. He denies numbness, tingling, or electric shocks. He denies popping, clicking, catching, locking, grinding, instability, buckling, or giving way. Alleviating factors: Meds, Sitting, Lying, and Frequent Changing Positions Prior pertinent orthopedic surgery: none Prior interventions: Physical therapy: No Injections/ aspiration: No Bracing: No Assistive devise: no assistive device Pain medications: Ibuprofen and Tylenol Past Medical History No past medical history on file. Past Surgical History PAST SURGICAL HISTORY Procedure Laterality Date KNEE SCOPE,DIAGNOSTIC 1999 ACL repair (Dr. Flores) PAST SURGICAL HISTORY OF 1999 oral surgery -- abscess tooth/jaw PAST SURGICAL HISTORY OF wisdom Family History FAMILY HISTORY Adopted: Yes Social History Social History Tobacco Use Smoking status: Former Types: Cigarettes Quit date: 05/27/2006 Years since quittin.0 Substance Use Topics Alcohol use: Yes Allergies: ALLERGIES No Known Allergies Medications No current outpatient medications on file. Review of Systems: Reviewed and charted into [email or web address]. Physical Exam: PE reveals a male with the following vitals signs: Ht 175.3 cm (5' 9) Wt 104.3 kg (230 lb) BMI 33.97 kg/m? Body mass index is 33.97 kg/m?. General appearance: Well appearing, alert, in no acute distress, well-hydrated, well nourished. Psych: Mood and affect broad and appropriate Head: Normocephalic, no masses, lesions, tenderness or abnormalities Eyes: Anicteric sclera. Pupils are equally round and reactive to light. Extraocular movements are intact. ENT: Nares patent Heart: Regular rate and rhythm Lymph: There is no lymphadenopathy. The patient has a stable gait with no assistance. There is a negative Trendelenberg sign. HIP EXAM: Right Left Hip extension 10 degrees 10 degrees Hip flexion 90 degrees 90 degrees Hip IR (supine) 20 degrees 20 degrees Hip ER (supine) 40 degrees 40 degrees Hip aBduction 40 degrees 40 degrees Hip aDduction 15 degrees 15 degrees Knee extension 0 degrees 0 degrees Knee flexion 110 degrees 110 degrees Straight leg raise Intact Intact Knee effusion No No Knee stable Yes Yes Point tenderness on palpation: The bilateral hip is tender over the anterior aspect of the hip. Pain with resisted hip flexion: positive Pain with passive hip rotation: positive Skin: Normal temperature without erythema Scars: No Motor/sensory function: Intact DP/PT pulses: 2+ KNEE EXAM: Examination of the knees demonstrates normal ROM without pain. LUMBAR SPINE: Examination of the lumbar spine demonstrates normal ROM. Straight leg raise is negative bilaterally. Patellar tendon and Achilles tendon reflexes are 2/4 bilaterally. Radiology Findings: (I have reviewed appropriate radiology images and reports.) 04/25/23 Right hip XR (outside): No significant degenerative changes. 05/25/23 Right hip MRI (outside): -Bilateral femoral head AVN -Right anterior acetabular labral tear -No significant degenerative changes Assessment: (M87.051) Avascular necrosis of bone of hip, right (HCC) (primary encounter diagnosis) (M87.052) Avascular necrosis of bone of hip, left (HCC) (S73.191A) Tear of right acetabular labrum, initial encounter Plan: I had a lengthy discussion with the patient regarding history and physical examinati (more content not included)... Normal [facility] Vital Signs Date Time Vital Sign Value Performing Clinician Jamison christianson 12-08-2023 09:17-0400 Body height 175.3 cm Pacc 1 Work Phone: [facility] 12-08-2023 09:17-0400 Body mass index (BMI) [Ratio] 32.43 kg/m2 Pacc 1 Work Phone: [facility] 12-08-2023 09:17-0400 Body temperature 98.71 [degF] Pacc 1 Work Phone: [facility] 12-08-2023 09:17-0400 Body weight 99.6 kg Pacc 1 Work Phone: [facility] 12-08-2023 09:17-0400 Diastolic blood pressure 98 mm[Hg] Pacc 1 Work Phone: [facility] 12-08-2023 09:17-0400 Heart rate 61 /min Pacc 1 Work Phone: [facility] 12-08-2023 09:17-0400 Respiratory rate 16 /min Pacc 1 Work Phone: [facility] 12-08-2023 09:17-0400 SaO2% (BldA) [Mass fraction] 97 % Pacc 1 Work Phone: [facility] 12-08-2023 09:17-0400 Systolic blood pressure 139 mm[Hg] Pacc 1 Work Phone: [facility] 06-09-2023 07:28-0500 Body height 175.3 cm Pacc 3 Work Phone: [facility] 06-09-2023 07:28-0500 Body weight 104.33 kg Pacc 3 Work Phone: [facility] Encounters Encounter Date Encounter Type Care Provider Facility Start: 10-12-2024 ambulatory Benigno Zaragoza Facility: [facility] Start: 09-24-2024 Encounter for genera l adult medical examination without abnormal findings Benigno Nik [facility] Start: 09-17-2024 End: 09-17-[address] Carine Moreno DO Work Phone: [facility] Work Phone: Start: 09-17-2024 End: 09-17-[address] Benigno Zaragoza DO [facility] [place] Work Phone: Start: 09-17-2024 End: 09-17-2024 ambulatory Benigno Zaragoza Facility:[facility] Start: 03-29-2024 Encounter for other preprocedural examination Nigel Delgado [facility] Start: 02-01-2024 End: 02-01-2024 Patient encounter procedure Ousmane Geary PA-C Work Phone: Orthopaedics Comment on above: Status post total hi p replacement, right (Primary Dx) Start: 02-01-2024 End: 02-01-2024 Subsequent hospital visit by physician Randall [facility] Work Phone: Radiology Comment on above: Avascular necrosis o f bone of hip, right (HCC) [M87.051] Start: 01-26-2024 End: 01-26-2024 ambulatory JESSE VIJAYA Facility:[facility] Start: 01-04-2024 End: 01-04-2024 ambulatory Ousmane Geary PA-C Work Phone: Orthopaedics Start: 01-04-2024 End: 01-04-2024 Follow-up encounter Ousmane Leticia PA-C Work Phone: Orthopaedics Comment on above: Follow up appointmen t Start: 01-04-2024 End: 01-04-2024 Patient encounter procedure Ousmane Geary PA-C Work Phone: Orthopaedics Comment on above: Status post total hi p replacement, right (Primary Dx) Start: 12-15-2023 Admission to [facility] Gabino Berg MD Work Phone: Orthopaedics Comment on above: Surgery Start: 12-15-2023 ambulatory Gabino Berg MD Work Phone: Orthopaedics Start: 12-08-2023 End: 12-08-2023 Admission to [facility] Work Phone: Pre Anesthesia Start: 12-08-2023 End: 12-08-2023 Anesthesia consultation [place] [id number] Work Phone: Pre Anesthesia Comment on above: Pre-op evaluation (P rimary Dx); Obesity (BMI 30.0-34.9) Start: 12-08-2023 End: 12-08-2023 Preprocedural examination done [place] [id number] Work Phone: [facility] Work Phone: Start: 12-08-2023 End: 12-08-2023 ambulatory OUSMANE GIMENEZT Facility:[facility] Start: 12-08-2023 Encounter for other preprocedural examination UNKNOWN PROVIDER [facility] Start: 12-07-2023 Telephone encounter Maria Esther Meehan roseann GAS ENGINEER Work Phone: [facility] Case Management Start: 11-29-2023 ambulatory CARINE MORENO Facility:[facility] Start: 11-29-2023 Encounter for other preprocedural examination [facility] Start: 11-29-2023 End: 11-29-2023 Patient encounter status [facility] Start: 11-29-2023 End: 11-29-2023 Subsequent hospital visit by physician Xr [facility] Radiology Comment on above: Avascular necrosis o f bone of hip, right (HCC) [M87.051] Start: 11-15-2023 End: 11-16-2023 ambulatory [facility] Facility:[facility] Start: 11-06-2023 End: 11-06-2023 ambulatory Carine Josh Facility:[facility] Start: 10-04-2023 ambulatory Gabino Berg MD Work Phone: Orthopaedics Start: 10-04-2023 Patient encounter status Gabino Berg MD Work Phone: [facility] Start: 09-14-2023 End: 09-14-2023 ambulatory GABINO BERG Facility:[facility] Start: 09-14-2023 End: 09-14-2023 Admission to same day surgery center Gabino Berg MD Work Phone: Orthopaedics Comment on above: Status post hip surg nathan (Primary Dx); Avascular necrosis of bone of hip, right (HCC); Avascular necrosis of bone of hip, left (HCC) Start: 09-14-2023 End: 09-14-2023 Telemedicine consultation with patient Gabino Berg MD Work Phone: Orthopaedics Start: 08-18-2023 ambulatory UNKNOWN PROVIDER Facili ty:[facility] Start: 08-18-2023 End: 08-18-2023 Subsequent hospital visit by physician Randall [facility] Radiology Comment on above: Status post hip surg nathan [Z98.890] Start: 07-27-2023 End: 07-27-[facility] Start: 07-27-2023 End: 07-27-2023 Patient encounter procedure Gabino Berg MD Work Phone: Orthopaedics Comment on above: Status post hip surg nathan - Bilat hip core (Primary Dx) Start: 07-27-2023 End: 07-27-2023 Subsequent hospital visit by physician [facility] Work Phone: Radiology Comment on above: Avascular necrosis o f bone of hip, right (HCC) [M87.051] Start: 06-30-2023 End: 06-30-2023 ambulatory OUSMANE KELLY Facility:[facility] Start: 06-30-2023 End: 06-30-2023 Admission to same day surgery center Ousmane Kelly PA-C Work Phone: Orthopaedics Comment on above: Status post hip surg nathan (Primary Dx); Avascular necrosis of bone of hip, right (HCC); Avascular necrosis of bone of hip, left (HCC) Start: 06-30-2023 End: 06-30-2023 Telemedicine consultation with patient Ousmane Raebot GAYLA Work Phone: [facility] Start: 06-14-2023 End: 06-14-2023 Evaluation and management of inpatient GABINO MORENA Facility:[facility] Start: 06-13-2023 Telephone encounter Ousmane LORENZANA Pre Anesthesia Start: 06-13-2023 Encounter for other preprocedural examination UNKNOWN PROVIDER [facility] Start: 06-13-2023 End: 06-13-2023 ambulatory CARINE MORENO Facility:[facility] Start: 06-09-2023 End: 06-09-2023 [facility] Facility:[facility] Start: 06-09-2023 End: 06-09-2023 Admission to [facility] Work Phone: [facility] Start: 06-09-2023 End: 06-09-[address] [facility] 3 Work Phone: Pre Anesthesia Comment on above: Pre-op evaluation (P rimary Dx); Obesity (BMI 30.0-34.9) Start: 06-09-2023 End: 06-09-2023 Preprocedural examination done [facility] Work Phone: [facility] Work Phone: Start: 06-05-2023 End: 06-05-2023 ambulatory [facility] Facility:[facility] Start: 05-25-2023 End: 05-25-[address] Carine Moreno Work Phone: [facility] Work Phone: Start: 05-25-2023 End: 05-25-[address] Carine Moreno Work Phone: [facility] Work Phone: Start: 05-22-2023 End: 05-22-[address] Carine Moreno Work Phone: [facility] Work Phone: Start: 04-25-2023 End: 04-25-[address] Carine Moreno Work Phone: [facility] Work Phone: Start: 04-25-2023 End: 04-25-[address] Carine Moreno Work Phone: [facility] Work Phone: Procedures Date Procedure Procedure Detail Performing Clinician Start: 02-01-2024 Radex hip unilateral with pelvis 2-3 views Ousmane HORTON-C Work Phone: Start: 12-08-2023 Antibody screen UNKNOWN PROVIDER Comment on above: Order Comment: Speci men Type: BLOOD SPECIMEN Ordering Facility: [facility] Address: [address] [place] [address] Performed By: #### T SCR30 #### [facility] CLIA [id number] [address] Start: 08-18-2023 Radex hip unilateral with pelvis 2-3 views Ant Bushski PA-C Work Phone: Start: 07-27-2023 Radex hips bilateral with pelvis minimum 5 views Ousmane Geary PA-C Work Phone: Start: 06-13-2023 Antibody screen UNKNOWN PROVIDER Comment on above: Order Comment: Speci men Type: BLOOD SPECIMEN Ordering Facility: [facility] Address: [address] [place] [address] Performed By: #### T [id number] #### [facility] CLIA [id number] [address] Start: 05-25-2023 MRI of joint of lowe r extremity Dr. Carine Moreno Work Phone: Start: 04-25-2023 Plain x-ray of pelvi s and lower extremity Dr. Carine Moreno Work Phone: Start: 04-25-2023 X-ray of lumbar spin e, two or three views Dr. Carine Moreno Work Phone: Start: 10-27-2010 Lipid 1996 panel - S christy or Plasma Pacc 3 Work Phone: Plan of Treatment Date Care Activity Detail Author Start: 02-01-2024 End: 11-02-2024 XR Pelvis and Hip - right AP and Lateral frog XR HIP GENERAL 3V PELV/AP/LAT RIGHT Radiology Routine Avascular necrosis of bone of hip, right (HCC) Bilateral hip pain Status post hip surgery Tear of right acetabular labrum, initial encounter Expected: 02/01/2024 (Approximate), Expires: 11/02/2024 [facility] Comment on above: Expected: 02/01/2024 (Approximate), Expires: 11/02/2024 Start: 02-01-2024 End: 02-01-2024 Patient encounter procedure 02/01/2024 1:00 PM EDT Office Visit Orthopaedics [address] [place] [address] Ousmane Kelly PA-C [address] [address] post op DOS 12/21 Orthopaedics Comment on above: post op DOS 12/21 Start: 01-07-2024 Covid-19 Vaccine ( season) Covid-19 Vaccine ( season) [facility] Start: 01-07-2024 Covid-19 Vaccine ( season) Covid-19 Vaccine () [facility] Start: 01-07-2024 Influenza vaccination C [facility] Start: 01-04-2024 End: 01-04-2024 Patient encounter procedure 01/04/2024 3:00 PM EDT Office Visit Orthopaedics [address] [place] [address] Ousmane Kelly PA-C [address] [address] post op DOS 12/21 Orthopaedics Comment on above: post op DOS 12/21 Start: 12-22-2023 End: 12-22-2023 Admission to same day surgery center [facility] Surgery Comment on above: ROBOTIC ASSISTED ANT ERIOR TOTAL HIP ARTHROPLASTY Start: 12-22-2023 End: 12-22-2023 Arthrp acetblr/prox fem prostc agrft/algrft MM OR Start: 12-22-2023 Subsequent hospital visit by physician [facility] Surgery Comment on above: Avascular necrosis o f bone of hip, right (HCC) [M87.051] Start: 12-08-2023 End: 12-08-2023 Anesthesia consultation Pre Anesthesia Comment on above: ROBOTIC ASSISTED ANT ERIOR TOTAL HIP ARTHROPLASTY [10019] - Hip - Right Start: 11-29-2023 End: 02-28-2024 CBC W Auto Differential panel - Blood COMPLETE BLOOD COUNT AND DIFFERENTIAL Lab Routine Avascular necrosis of bone of hip, right (HCC) Bilateral hip pain Status post hip surgery Pre-op testing Tear of right acetabular labrum, initial encounter Expected: 11/29/2023 (Approximate), Expires: 02/28/2024 [facility] Comment on above: Expected: 11/29/2023 (Approximate), Expires: 02/28/2024 Start: 11-29-2023 End: 02-28-2024 Comprehensive metabolic 2000 panel - Serum or Plasma COMPREHENSIVE METABOLIC PANEL Lab Routine Avascular necrosis of bone of hip, right (HCC) Bilateral hip pain Status post hip surgery Pre-op testing Tear of right acetabular labrum, initial encounter Expected: 11/29/2023 (Approximate), Expires: 02/28/2024 [facility] Comment on above: Expected: 11/29/2023 (Approximate), Expires: 02/28/2024 Start: 11-29-2023 End: 02-28-2024 CONFIRM BLOOD TYPE CONFIRM BLOOD TYPE Blood Bank Routine Avascular necrosis of bone of hip, right (HCC) Bilateral hip pain Status post hip surgery Pre-op testing Tear of right acetabular labrum, initial encounter Expected: 11/29/2023 (Approximate), Expires: 02/28/2024 [facility] Comment on above: Expected: 11/29/2023 (Approximate), Expires: 02/28/2024 Start: 11-29-2023 End: 10-03-2024 ECG COMPLETE ECG COMPLETE ECG Routine Avascular necrosis of bone of hip, right (HCC) Bilateral hip pain Status post hip surgery Pre-op testing Tear of right acetabular labrum, initial encounter Expected: 11/29/2023 (Approximate), Expires: 10/03/2024 [facility] Comment on above: Expected: 11/29/2023 (Approximate), Expires: 10/03/2024 Start: 11-29-2023 End: 02-28-2024 TYPE AND SCREEN,30 DAY TYPE AND SCREEN,30 DAY Blood Bank Routine Avascular necrosis of bone of hip, right (HCC) Bilateral hip pain Status post hip surgery Pre-op testing Tear of right acetabular labrum, initial encounter Expected: 11/29/2023 (Approximate), Expires: 02/28/2024 [facility] Comment on above: Expected: 11/29/2023 (Approximate), Expires: 02/28/2024 Start: 11-29-2023 End: 02-28-2024 URINALYSIS, DIPSTICK ONLY URINALYSIS, DIPSTICK ONLY Lab Routine Avascular necrosis of bone of hip, right (HCC) Bilateral hip pain Status post hip surgery Pre-op testing Tear of right acetabular labrum, initial encounter Expected: 11/29/2023 (Approximate), Expires: 02/28/2024 [facility] Comment on above: Expected: 11/29/2023 (Approximate), Expires: 02/28/2024 Start: 11-29-2023 End: 11-02-2024 XR Lower extremity - bilateral AP W standing [facility] Work Phone: Comment on above: Expected: 11/29/2023 (Approximate), Expires: 11/02/2024 Start: 11-29-2023 End: 11-02-2024 XR Pelvis and Hip - right AP and Lateral frog [facility] Comment on above: Expected: 11/29/2023 (Approximate), Expires: 11/02/2024 Start: 05-08-2023 Behavioral Health Screening Behavioral Health Screening [facility] Start: 05-08-2023 Depression Assessment Depression Ass essment [facility] Start: 01-06-2023 Covid-19 Vaccine ( season) Covid-19 Vaccine ( season) [facility] Start: 01-06-2023 Influenza vaccination Influenza Vacc ine (#1) [facility] Start: 10-28-2015 Lipid panel Lipid Screening [facility] Start: 08-23-1999 Hepatitis B Vaccine (1 of 3 - 19+ 3-dose series) Hepatitis B Vaccine (1 of 3 - 19+ 3-dose series) [facility] Start: 08-23-1999 Urine microalbumin profile DTaP,Tdap,Td Vaccine (1 - Tdap) [facility] Start: 1998 Anxiety Screening Anxiety Screening [facility] Start: 1998 Depression Screening Depression Scre karolyn [facility] Start: 1998 Hepatitis C screening Hepatitis C Sc chu [facility] Start: 1998 HIV screening HIV Screening [facility] Start: 02-21-1981 Covid-19 Vaccine (#1) Covid-19 Vacci ne (#1) [facility] Start: 1980 Hepatitis B Vaccine (1 of 3 - 3-dose series) Hepatitis B Vaccine (1 of 3 - 3-dose series) [facility] Arthrp acetblr/prox fem prostc agrft/algrft ROBOTIC ASSISTED ANTERIOR TOTAL HIP ARTHROPLASTY Avascular necrosis of bone of hip, right (HCC) Bilateral hip pain Status post hip surgery Pre-op testing Tear of right acetabular labrum, initial encounter [facility] MR Lumbar spine [place] [facility] Payers Date Payer Category Payer Private Health Insurance [id number] 2023 Self-pay [id number] 2023 Private Health Insurance [id number] 2021 Unknown [id number] 2021 Unknown [id number] Unknown [id number] Unknown [id number] Unknown [id number] [id number] Unknown [id number] [id number] Unknown [id number] [id number] Unknown [id number] Social History Date Type Detail Facility Start: 04-25-2023 End: 05-22-2023 Tobacco smoking status NHIS Unknown if ever smoked [facility] Start: 1980 Sex Assigned At Male [facility] Start: 06-09-2023 End: 01-04-2024 Tobacco smoking status NHIS Ex-smoker [facility] Work Phone: Start: 05-27-2004 End: 05-27-2006 History of tobacco use Current smoker [facility] Work Phone: Start: 05-27-2004 End: 05-27-2006 History of tobacco use Cigarette Smoker [facility] Work Phone: Start: 06-09-2023 End: 02-01-2024 Alcohol intake Ex-drinker (finding) [facility] Start: 06-09-2023 End: 01-04-2024 History of Social function [facility] Start: 06-09-2023 End: 01-04-2024 Tobacco use panel [facility] National Score (1-100), lower number is lower risk 55 [facility] Start: 1980 Sex Assigned At Not on file C [facility] Start: 11-14-2023 Tobacco smoking stat us [facility] Never smoked tobacco (finding) [facility] Medical Equipment Procedure Code Equipment Code Equipment Original Text Equipment Identifier Dates Shell G7 F Offse t Hemisphere [place] Acetabular 4 Hole Limit 54mm Hip - [id number] Start: 12-22-2023 Liner Acetubular Size F [id number] Hip Longevity Neutral G7 - [id number] Start: 12-22-2023 Stem Femoral Siz e 4 Hydroxyapatite Collared High Offset Avenir Complete - [id number] Start: 12-22-2023 Head Trilogy It Continuum 36mm +0mm 12/14 Medium Biolox Delta Ceramic - [id number] Start: 12-22-2023 Screw G7 6.5mm D ome 20mm Acetabular Low Profile Hip - [id number] Start: 12-22-2023 Clinical Notes 06-05-2023 to 02-01-2024 Ousmane Kelly PA-C - 02/01/2024 12:30 PM Junior Hussein RT(R) - 02/01/2024 12:15 PM Ousmane Dobbins PA-C - 01/04/2024 10:24 AM EDTPatient InstructionsPatient InstructionsPatient Instructions Note Date & Type Note Facility 02-01-2024 History of Presen t illness Narrative Images from the original note were not included. Post-Op Visit Patient: Thomas Matias : 1980 Date of Surgery: 12/22/23 Procedure(s): Right total hip arthroplasty [40476] Direct anterior approach PARESH robotic-assistance [0054T] Date of Surgery: 06/14/2023 Procedure: Bilateral hip core decompression [30707] Right iliac crest and proximal tibia bone marrow aspiration/harvest, centrifugation, and reinjection/ autologous transplantation into the necrotic lesion [79695] Bilateral hip injection of platelet rich plasma, including harvesting and preparation [0232T] HPI: Thomas Matias is a 43 year old male who presents s/p Right JASPREET. The pain has improved since surgery. The patient denies wound healing difficulty, fevers, or chills. PAIN EVALUATION No data found in the last 1 encounters. DVT prophylaxis/ Analgesic Medication: See medication list Review of Systems, Past Medical History, Past Surgical History, Family History, and Social History: Reviewed and charted into [email or web address]. Allergies: Patient has no known allergies. Medications: Current Outpatient Medications: aspirin 325 mg tablet acetaminophen (TYLENOL EXTRA STRENGTH) 500 mg tablet omeprazole (PRILOSEC) 20 mg capsule Physical Exam: PE reveals a male with the following vitals signs: There were no vitals taken for this visit. The patient is oriented to person, place and time, and is well-appearing. The patient has a stable gait. Hip exam: The patient is able to smoothly range the hip. ROM - Hip Flexion: 100 degrees Hip Extension: 10 degrees Incision: Healing well Radiology Findings: (I have reviewed radiology images and reports). 02/01/24 R JASPREET - stable appearance, well-fixed, well-aligned prosthesis Assessment: (Z96.641) Status post total hip replacement, right (primary encounter diagnosis) Plan: Based upon the evaluation today and after discussions with the patient, we will proceed with the following: -DVT prophylaxis - complete -Pain control: oral regimen -PT: per protocol, -Dental prophylaxis reviewed -RTC 1 year with XR prior or sooner if any concerns All questions were answered in detail, and the patient was pleased with the plan of care. Ousmane Kelly PA-C documented in this encounter [facility] 02-01-2024 History of Presen t illness Narrative Radiology Service Progress Note PATIENT NAME: Thomas Matias DATE OF SERVICE: February 01, 2024 TIME: 12:12 PM PATIENT IDENTITY VERIFICATION COMPLETED USING TWO (2) IDENTIFIERS: Name and Date of confirmed by patient verbally. FALL SCREENING: Has the patient had 2 falls in the last year or 1 fall with injury or currently using an Ambulatory Assistive Device (Walker, Cane, Wheelchair, Crutches, etc.)? No PATIENT GENDER DATA: Male PATIENT RELEVANT IMPLANT DATA REVIEWED: Not Applicable PATIENT PRESENTS WITH AN IMPLANTABLE OR ATTACHED ART HISTORY PROFESSOR: No RADIOLOGY DEPARTMENT: General X-ray: Exam(s) Completed: Pelvis X-Ray: Pelvis with Hip Right PERIPHERAL IV DATA: Not applicable SIGNED BY: RT Daniel(R) February 01, 2024 12:12 PM documented in this encounter [facility] 01-04-2024 History of Presen t illness Narrative Images from the original note were not included. Post-Op Visit Patient: Thomas Matias : 1980 Date of Surgery: 12/22/23 Procedure(s): Right total hip arthroplasty [07216] Direct anterior approach PARESH robotic-assistance [0054T] Date of Surgery: 06/14/2023 Procedure: Bilateral hip core decompression [99356] Right iliac crest and proximal tibia bone marrow aspiration/harvest, centrifugation, and reinjection/ autologous transplantation into the necrotic lesion [33137] Bilateral hip injection of platelet rich plasma, including harvesting and preparation [0232T] HPI: Thomas Matias is a 43 year old male who presents s/p Right JASPREET. The pain has improved since surgery. The patient denies wound healing difficulty, fevers, or chills. PAIN EVALUATION No data found in the last 1 encounters. DVT prophylaxis/ Analgesic Medication: See medication list Review of Systems, Past Medical History, Past Surgical History, Family History, and Social History: Reviewed and charted into [email or web address]. Allergies: Patient has no known allergies. Medications: Current Outpatient Medications: aspirin 325 mg tablet acetaminophen (TYLENOL EXTRA STRENGTH) 500 mg tablet omeprazole (PRILOSEC) 20 mg capsule Physical Exam: PE reveals a male with the following vitals signs: There were no vitals taken for this visit. The patient is oriented to person, place and time, and is well-appearing. The patient has a stable gait. Hip exam: The patient is able to smoothly range the hip. ROM - Hip Flexion: 90 degrees Hip Extension: 0 degrees Incision: Healing well - clean, dry, and intact; no erythema, drainage, or other signs of infection. Steri-strips applied. Radiology Findings: (I have reviewed radiology images and reports). No new images Assessment: (Z96.641) Status post total hip replacement, right (primary encounter diagnosis) Plan: Based upon the evaluation today and after discussions with the patient, we will proceed with the following: -DVT prophylaxis - ASA 325 mg BID x 6 weeks post-op -Pain control: oral regimen -PT: per protocol, outpt PT referral placed and rx provided to pt -Dental prophylaxis reviewed -RTC 4 weeks with XR prior All questions were answered in detail, and the patient was pleased with the plan of care. Ousmane Kelly PA-C documented in this encounter [facility] 01-02-2024 Instructions Ousmane Kelly PA-C - 01/02/2024 10:41 AM EDT Images from the original note were not included. Please reach out to our office with any new post-op questions/concerns you may experience. Contact information: Monday through Monday, 8 AM to 5 PM: [phone] - Dr. Berg s team directly Weekends and evenings: [phone] - ask for orthopaedic physician communications consultant ____ PT Scheduling Instructions For an appointment call Rehabilitation and Sports Therapy: [phone]. The land sales agent will assist you in selecting the location and specialty service that will best meet your needs. For a list of sites and services: [email or web address] POST-OP INSTRUCTION REINFORCEMENT - Your dressing was removed today and steri-strips were applied to the incision for reinforcement. Please allow them to fall off on their own. - Please keep the incision area clean and dry for the next 24-48 hours. You may then shower. Use a mild soap and let the water gently run off of the incision. Avoid vigorous scrubbing or friction to the area. - No lotions/creams/ointments to the incision until fully healed/sealed and cleared at your next post-op visit. No swimming or submerging the incision in water until fully healed/sealed and cleared at your next post-op visit. - Monitor for signs and symptoms of infection such as: fevers/chills, drainage, redness/discoloration to the incision and surrounding area, increased pain, incision area hot to touch, increased swelling. Please report these symptoms to our office promptly if they were to occur. - Please continue with your aspirin regimen as ordered. This is important for post-op blood clot prevention. Please remember to take with food to prevent stomach upset. Please do not take any additional NSAIDs (Advil, Aleve, Motrin, Mobic, Celebrex, Ibuprofen, etc.) while on the aspirin regimen. End Date of Aspirin Regimen: 02/02/2024 documented in this encounter [facility] 12-22-2023 Note HNO ID: [id number] Author: MARIA ESTHER ESQUIVEL LSW Service: Care Management Author Type: Ore Mixer Type: Care Mgt Progress Note Filed: 12/22/2023 13:04 Note Text: CARE MANAGEMENT DISCHARGE NOTE SERVICE DATE: 12/22/2023 SERVICE TIME: 1:03 PM. LOS: 0 days [place] of Choice Given: Yes Financial Disclosure Provided: Yes Provider List: Home Care Provider list within the patient's requested geographic area shared with the patient/family: Yes within: 20 miles of zip code: [address] Quality and resource use metrics shared with the patient that are relevant to the patient's goals of care and treatment preferences:: Yes Metrics: Transfer of Health Information and Care Preferences This orthopedic same day discharge confirmed leaving today. Home Health Care arranged with [facility]. SIGNATURE: ELINOR Stevens PATIENT NAME: Thomas Matias DATE: December 22, 2023 TIME: 1:03 PM PAGER/CONTACT #: [phone] [facility] 12-22-2023 Note HNO ID: [id number] Author: SHERRELL MARTINES MD Service: ? Author Type: Anesthesiologist Type: Anesthesia Procedure Notes Filed: 12/22/2023 11:18 Note Text: ANESTHESIOLOGY PROCEDURE NOTE Spinal Block General Information Procedure Start Time/Medication Administration: 12/22/2023 9:20 AM Procedure End time: 12/22/2023 9:25 AM Patient location during procedure: pre-op Timeout Performed Pre-procedure: timeout performed Consent Obtained: Yes Patient identity confirmed: arm band Reason for Block: primary surgical anesthetic Staffing Anesthesiologist: Sherrell Martines MD Performed by: anesthesiologist Preparation Sterility Preparation: hand hygiene performed prior to procedure, sterile gloves, drapes, and procedure tray, surgical cap used, mask used, sterile drape used during line insertion, skin prep agent completely dried prior to procedure Sterility Technique Not Completely Performed Due to Extreme Emergency: No Site Prep: Chloraprep Procedure Details Patient Position: sitting Ultrasound Guided: No Monitoring: Pulse Ox Approach: Midline Location: L3-4 Injection Technique: single-shot Needle Needle Type: pencil-tip Needle Gauge: 24 G Needle Length: 1.5 in CSF: adequate CSF flow from spinal needle Assessment Sensory Level: Lumbar Events: tolerated well Medications Administered bupivacaine(PF) 0.75 % (7.5 mg/mL) injection (MARCAINE PF) - EPIDURAL 10.5 mg - 12/22/2023 9:20:00 AM SIGNATURE: Sherrell Martines MD PATIENT NAME: Thomas Matias DATE: December 22, 2023 TIME: 10:50 AM CSN: [id number] [facility] 12-22-2023 Note HNO ID: [id number] Author: SHERRELL MARTINES MD Service: ? Author Type: Anesthesiologist Type: Anesthesia Procedure Notes Filed: 12/22/2023 10:47 Note Text: ANESTHESIOLOGY PROCEDURE NOTE Peripheral Nerve Block General Information Procedure Start Time/Medication Administration: 12/22/2023 7:20 AM Procedure End time: 12/22/2023 7:25 AM Patient location during procedure: OR Timeout Performed Pre-procedure: timeout performed Consent Obtained: Yes Patient identity confirmed: arm band Reason for block: post-op pain management/at surgeon's request Staffing Anesthesiologist: Sherrell Martines MD Performed by: anesthesiologist Preparation Sterility Preparation: hand hygiene performed prior to procedure, sterile gloves, drapes, and procedure tray, surgical cap used, mask used, sterile drape used during line insertion, skin prep agent completely dried prior to procedure Sterility Technique Not Completely Performed Due to Extreme Emergency: No Site Prep: Chloraprep Pre-Procedure Neuro Exam Location: RLE Sensory: intact Motor: intact Procedure Details Patient Position: supine Block Type SIGNATURE: Sherrell Martines MD PATIENT NAME: Thomas Matias DATE: December 22, 2023 TIME: 10:47 AM CSN: [id number] [facility] 12-22-2023 Note HNO ID: [id number] Author: MARIA ESTHER ESQUIVEL LSW Service: Care Management Author Type: Ore Mixer Type: Care Mgt Initial Assessment Filed: 12/22/2023 09:15 Note Text: CARE CONTINUUM ADVISOR ASSESSMENT PRIMARY CARE PHYSICIAN: Carine Moreno DO OR Surgery Date: 12/22/23 TCI Appointment: n/a Health Insurance: [employer] Financial Resources: Employed: yes Primary Contact: Extended Emergency Contact Information Primary Emergency Contact: CARMEN MATIAS Relation: Spouse Other Important Patient Contacts: None Patient/Control Chemist Stated Goals: To have reduction in pain, To have reduction in symptoms, and To improve my functional status Frame Table Operator Helper needed?: No Home Phone Primary Contact: Cell Phone Primary Contact:same ADVANCE DIRECTIVES: Does Patient Have Advance Directives? No, Patient refused Does Patient Have Concerns About Advance Directives? No Education Provided: Yes SOCIAL: Living Arrangement: Home Lives With: Spouse Stairs: 2 story home 3 stairs to enter home Do you have any concerns with food and/or affording food?: No Do you have reliable transportation to and from surgery/appointments?: Yes Medication Adherence: Do you have any concerns with your prescription medication?: No Who do you use for pharmacy?: Bedside Pre-Hospital Baseline Mental Status: Alert AND Oriented Informant: Self What is your current functional status?: Perform ADLs independently Equipment: Do you currently use any equipment at home for your medical condition or to help you get around? Walker Ice machine Active Services/Needs: None Do you have a community youth secretary contact through your insurance or [employer]?: No Has the Patient Been in a Shelter Facility in the Past 30 days? No FREEDOM OF CHOICE: Level of Care Discussed: Home Care Financial Disclosure Provided: Yes Financial Disclaimer Provided: Yes, regarding pre-cert / insurance authorization Provider List: Home Care Provider list within the patient's requested geographic area shared with the patient/family: Yes - Within [address] of [address] [place] [address] Provider Choices Collected Home Health: [facility] Interventions: Discussed importance of active PCP relationship and follow up Discussed insurance risks, gaps, and programs available Discussed reliable transportation needs for surgery and follow up appointments Maria Esther Esquivel [facility] 12-08-2023 History and physical note HISTORY AND PHYSICAL EXAMINATION SERVICE DATE: 12/08/2023 SERVICE TIME: 9:59 AM PRIMARY CARE PHYSICIAN: Carine Moreno DO Assessment Patient has the following medical conditions which may affect darcie-operative course: Obesity (BMI 30.0-34.9) Assessment: Body mass index is 32.43 kg/m . [place] Activity Status Index: METS: Participate in moderate recreational activites, such as golf, bowling, dancing, doubles tennis, or throwing a baseball or football (6.00 METs) DASI Score: 6 Patient denies any chest pain or undue shortness of breath with the above physical activity. Clinical Frailty Scale: 2. Well STOP-Bang Score: Snores loudly Male patient Denies feeling tired, fatigued, or sleepy during the daytime Has not been observed to stop breathing or choking/gasping during sleep Denies having high blood pressure BMI less than or equal to 35 kg/m^2 Patient 50 years old or younger Does not have a large neck STOP-Bang Score: 2 [id number] Score: Age: <65 Sex: male CHF history: No Hypertension history: No Stroke/TIA/thromboembolism history: No Vascular disease history: No Diabetes history: No [id number] Score: 0 ARISCAT Score: Age: <=50 Preoperative SpO2: >=96% Respiratory infection in the last month: No Preoperative anemia: Yes Surgical incision: peripheral Duration of surgery: 2-3 hrs Emergency procedure: No ARISCAT Score: 27 ANESTHESIA FINDINGS: Intubation History: No history of difficult intubation. No abnormal airway history Significant Anesthesia Considerations: none Airway History: No history of difficult airway No abnormal airway history I - PHYSICAL EVALUATION AIRWAY Patient intubated: No. Tracheostomy tube not present Mallampati: IV. TM distance: >3 FB. Neck ROM: full ROM without neurological symptoms. Mouth opening: adequate. Short neck: no. Thick neck: no Lip Bite Test: II DENTAL Dental findings: missing tooth/teeth. Additional comments: + front top veneers. II - ANESTHESIA PLAN Anesthetic Plan: other Anesthetic plan additional comments: *PACC/TCI - anesthesia choice. Beta Liana Monitoring Plan Post Procedure Analgesic Plan Prepared for Surgery: optimally prepared for surgery, pending [see comment]. UA today. Had labwork done at OSH 11/16/23, reviewed and acceptable. Scanned into chart. Per MSBOS Type and Screen is not required CONSULTS: Patient does not require consults for optimization at this time Planned Anesthetic: other anesthesia choice REASON FOR VISIT: Thomas Matias is a 43 year old male who is scheduled for Procedure(s) with comments: ROBOTIC ASSISTED ANTERIOR TOTAL HIP ARTHROPLASTY (Right) - Ivette JASPREET, [place] Table, Fluoro same day at the request of Gabino Farris MD for consultation. My final recommendation will be communicated back to the requesting physician by way of shared medical record or letter. Subjective The patient has the following: ACTIVE PROBLEM LIST Obesity (Bmi 30.0-34.9) COVID-19 Immunization Status Overdue - Covid-19 Vaccine (2022- season) Never done No completion, postpone, frequency change, or communication history exists for this topic. CHIEF COMPLAINT: Pre-anesthesia optimization HPI: Thomas Matias is a 43 year old male presenting for pre-anesthesia consultation. Pt has history of bilateral hip core decompression. Had left and right hips injected with stem cells to promote blood flow in June 2023. States pain has reduced and now is having right hip replaced. Reports pain started after Thanksgiving last year. 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 Procedure scheduled on 12/22/2023 at [facility]. REVIEW OF SYSTEMS: General: No weight loss, malaise or fevers. Neurological: No history of TIA's, stroke, MANAGER OF MANUFACTURING tumor, impaired sensorium, hemiplegia, paraplegia or quadraplegia. No neurological symptoms or problems. Respiratory: Positive for: tobacco use (smoked 1 year after college). Negative for: asthma, COPD, current cough, dyspnea, URI < 2 weeks and obstructive sleep apnea. Cardiovascular: No history of HTN requiring medication, no history of angina, CHF, DC, cardiac surgery or stents. Denies rest pain, gangrene or revascularization/amputation for PVD. No history of cardiovascular symptoms or problems. GI: No history of GI symptoms or problems. No history of esophageal varices, recent ascites, or ETOH greater than 2 drinks per day. : No history of dysuria, frequency or incontinence, stones or chronic kidney disease. No difficulty urinating, nocturia > 1 time per night or hematuria. Endocrine: No history of diabetes. Has not taken steroids within the past 30 days. No history of endocrinological symptoms or problems. Hematology: No history of bleeding or clotting disorder. Patient is not taking anti-coagulation or platelet medications. No history of hematological symptoms or problems. Oncology: No history of CA metastasis, chemo within 30 days, or radiotherapy within 90 days. No history of oncological symptoms or problems. Psych: No history of psychiatric symptoms or problems. Musculoskeletal: See HPI. Positive for: joint pain. Negative for: back pain. Skin: Negative for lesions, rash and itching. History reviewed. No pertinent past medical history. PAST SURGICAL HISTORY 1999: ARTHROSCOPY KNEE DIAGNOSTIC W/WO SYNOVIAL BX SPX Comment: ACL repair (Dr. Flores) 2000: PAST SURGICAL HISTORY OF Comment: oral surgery -- abscess tooth/jaw No date: PAST SURGICAL HISTORY OF Comment: wisdom FAMILY HISTORY Adopted: Yes Social History Tobacco Use Smoking status: Former Years: 2 Types: Cigarettes Quit date: 05/27/2006 Years since quittin.5 Substance Use Topics Alcohol use: Not Currently Drug use: Not Currently Prior to Admission medications as of 12/08/23 0932 Medication Sig Last Dose Taking ibuprofen (MOTRIN IB) 200 mg tablet Take 200 mg by mouth two times a day. Taking Yes mupirocin (BACTROBAN) 2 % ointment Using a Q-Tip, apply 1/2 inch strip of ointment to both nostrils, twice daily, for 5 days before surgery Patient should start on December 17, 2023. Taking Yes omeprazole (PRILOSEC) 20 mg capsule Take 1 capsule by mouth once daily. Patient not taking: Reported on 07/27/2023 No medication comments found. ALLERGIES No Known Allergies Objective PHYSICAL EXAM: General: alert and oriented, healthy appearance and obese. Pertinent negatives noted - not distressed. Skin: normal color, no rash or lesions. HEENT: EOM intact and pupils equal round. Pertinent negatives noted - no carotid bruit. Cardiovascular: regular rate and rhythm, normal S1 and S2, no rub, murmurs, or gallop. Respiratory: normal breath sounds, no wheezes or crackles. No chest wall deformity or tenderness. Abdomen: soft. Pertinent negatives noted - not tender. Extremities: Positive for joint tenderness. Pertinent negatives noted - no edema and no joint swelling. Neurological: normal cognition and motor skills. Positive for abnormal gait. PAIN ASSESSMENT: Pain Pain Level: 3 Pain Location: Hip-Right Description: Sore Frequency: Intermittent VITALS: BP 139/98 Pulse 61 Temp 98.7 Resp 16 Ht 5' 9 (1.75m) Wt 219 lb 9.3 oz (99.6kg) SpO2 97% BMI 32.41 kg/(m^2). Diagnostic tests reviewed for today's visit: Lab Value Units Date High Low HB 14.4 g/dL 06/13/2023 17.0 13.0 HCT 43.0 % 06/13/2023 51.0 39.0 WBC 9.00 k/uL 06/13/2023 11.00 3.70 PLT 373 k/uL 06/13/2023 400 150 NA 141 mmol/L 06/13/2023 144 136 K 3.6 mmol/L 06/13/2023 5.1 3.7 GLUC 106 mg/dL 06/13/2023 99 74 BUN 8 mg/dL 06/13/2023 24 9 CREAT 0.97 mg/dL 06/13/2023 1.22 0.73 PTSEC No results within date range. INR No results within date range. APTT No results within date range. ALT 20 U/L 06/13/2023 54 10 AST 34 U/L 06/13/2023 40 14 TBILI 0.3 mg/dL 06/13/2023 1.3 0.2 TSH No results within date range. Lab Value Units Date High Low HCGQT No results within date range. UHCG No results within date range. HCG, BODY* No results within date range. Lab Value Units Date High Low ABORHD No results within date range. ABSCREEN No results within date range. No results found for: HBA1C Recent Results (from the past 8760 hour(s)) ECG COMPLETE Collection Time: 06/13/23 7:48 AM Result Value Ventricular Rate 68 Atrial Rate 68 P-R Interval 172 QRS Duration 98 QT Interval 426 QTC Calculation (Bazett) 452 Calculated P [place] 31 Calculated R [place] -45 Calculated T [place] 41 Impression NORMAL SINUS RHYTHM LEFT AXIS DEVIATION PULMONARY DISEASE PATTERN NONSPECIFIC T WAVE ABNORMALITY ABNORMAL ECG NO PREVIOUS ECGS AVAILABLE Confirmed by MD SKYLER, QARAB ([id number]) on 06/13/2023 11:42:51 AM No results found for this or any previous visit (from the past 86872 hour(s)). The Following Tests/Procedures Have Been Initiated: Orders Placed This Encounter ibuprofen (MOTRIN IB) 200 mg tablet Sig: Take 200 mg by mouth two times a day. Instructions Given to Patient: Instructions located in the after visit summary. Patient given verbal and written preop instructions and voices comprehension and compliance. SIGNATURE: Lucie Zafar PA-C PATIENT NAME: Thomas Matias DATE: 12/08/2023 TIME: 2:43 PM PAGER/CONTACT #: [facility] 12-08-2023 History and physical note HISTORY AND PHYSICAL EXAMINATION SERVICE DATE: 12/08/2023 SERVICE TIME: 9:59 AM PRIMARY CARE PHYSICIAN: Carine Moreno DO Assessment Patient has the following medical conditions which may affect darcie-operative course: Obesity (BMI 30.0-34.9) Assessment: Body mass index is 32.43 kg/m . Spencer Activity Status Index: METS: Participate in moderate recreational activites, such as golf, bowling, dancing, doubles tennis, or throwing a baseball or football (6.00 METs) DASI Score: 6 Patient denies any chest pain or undue shortness of breath with the above physical activity. Clinical Frailty Scale: 2. Well STOP-Bang Score: Snores loudly Male patient Denies feeling tired, fatigued, or sleepy during the daytime Has not been observed to stop breathing or choking/gasping during sleep Denies having high blood pressure BMI less than or equal to 35 kg/m^2 Patient 50 years old or younger Does not have a large neck STOP-Bang Score: 2 [id number] Score: Age: <65 Sex: male CHF history: No Hypertension history: No Stroke/TIA/thromboembolism history: No Vascular disease history: No Diabetes history: No [id number] Score: 0 ARISCAT Score: Age: <=50 Preoperative SpO2: >=96% Respiratory infection in the last month: No Preoperative anemia: Yes Surgical incision: peripheral Duration of surgery: 2-3 hrs Emergency procedure: No ARISCAT Score: 27 ANESTHESIA FINDINGS: Intubation History: No history of difficult intubation. No abnormal airway history Significant Anesthesia Considerations: none Airway History: No history of difficult airway No abnormal airway history I - PHYSICAL EVALUATION AIRWAY Patient intubated: No. Tracheostomy tube not present Mallampati: IV. TM distance: >3 FB. Neck ROM: full ROM without neurological symptoms. Mouth opening: adequate. Short neck: no. Thick neck: no Lip Bite Test: II DENTAL Dental findings: missing tooth/teeth. Additional comments: + front top veneers. II - ANESTHESIA PLAN Anesthetic Plan: other Anesthetic plan additional comments: *PACC/TCI - anesthesia choice. Beta Liana Monitoring Plan Post Procedure Analgesic Plan Prepared for Surgery: optimally prepared for surgery, pending [see comment]. UA today. Had labwork done at OSH 11/16/23, reviewed and acceptable. Scanned into chart. Per MSBOS Type and Screen is not required CONSULTS: Patient does not require consults for optimization at this time Planned Anesthetic: other anesthesia choice REASON FOR VISIT: Thomas Matias is a 43 year old male who is scheduled for Procedure(s) with comments: ROBOTIC ASSISTED ANTERIOR TOTAL HIP ARTHROPLASTY (Right) - Ivette JASPREET, [place] Table, Fluoro same day at the request of Gabino Farris MD for consultation. My final recommendation will be communicated back to the requesting physician by way of shared medical record or letter. Subjective The patient has the following: ACTIVE PROBLEM LIST Obesity (Bmi 30.0-34.9) COVID-19 Immunization Status Overdue - Covid-19 Vaccine ( season) Never done No completion, postpone, frequency change, or communication history exists for this topic. CHIEF COMPLAINT: Pre-anesthesia optimization HPI: Thomas Matias is a 43 year old male presenting for pre-anesthesia consultation. Pt has history of bilateral hip core decompression. Had left and right hips injected with stem cells to promote blood flow in June 2023. States pain has reduced and now is having right hip replaced. Reports pain started after Thanksgiving last year. 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 Procedure scheduled on 12/22/2023 at [facility]. REVIEW OF SYSTEMS: General: No weight loss, malaise or fevers. Neurological: No history of TIA's, stroke, MANAGER OF MANUFACTURING tumor, impaired sensorium, hemiplegia, paraplegia or quadraplegia. No neurological symptoms or problems. Respiratory: Positive for: tobacco use (smoked 1 year after college). Negative for: asthma, COPD, current cough, dyspnea, URI < 2 weeks and obstructive sleep apnea. Cardiovascular: No history of HTN requiring medication, no history of angina, CHF, DC, cardiac surgery or stents. Denies rest pain, gangrene or revascularization/amputation for PVD. No history of cardiovascular symptoms or problems. GI: No history of GI symptoms or problems. No history of esophageal varices, recent ascites, or ETOH greater than 2 drinks per day. : No history of dysuria, frequency or incontinence, stones or chronic kidney disease. No difficulty urinating, nocturia > 1 time per night or hematuria. Endocrine: No history of diabetes. Has not taken steroids within the past 30 days. No history of endocrinological symptoms or problems. Hematology: No history of bleeding or clotting disorder. Patient is not taking anti-coagulation or platelet medications. No history of hematological symptoms or problems. Oncology: No history of CA metastasis, chemo within 30 days, or radiotherapy within 90 days. No history of oncological symptoms or problems. Psych: No history of psychiatric symptoms or problems. Musculoskeletal: See HPI. Positive for: joint pain. Negative for: back pain. Skin: Negative for lesions, rash and itching. History reviewed. No pertinent past medical history. PAST SURGICAL HISTORY 2000: ARTHROSCOPY KNEE DIAGNOSTIC W/WO SYNOVIAL BX SPX Comment: ACL repair (Dr. Flores) 2000: PAST SURGICAL HISTORY OF Comment: oral surgery -- abscess tooth/jaw No date: PAST SURGICAL HISTORY OF Comment: tari FAMILY HISTORY Adopted: Yes Social History Tobacco Use Smoking status: Former Years: 2 Types: Cigarettes Quit date: 05/27/2006 Years since quittin.5 Substance Use Topics Alcohol use: Not Currently Drug use: Not Currently Prior to Admission medications as of 12/08/23 0932 Medication Sig Last Dose Taking ibuprofen (MOTRIN IB) 200 mg tablet Take 200 mg by mouth two times a day. Taking Yes mupirocin (BACTROBAN) 2 % ointment Using a Q-Tip, apply 1/2 inch strip of ointment to both nostrils, twice daily, for 5 days before surgery Patient should start on December 17, 2023. Taking Yes omeprazole (PRILOSEC) 20 mg capsule Take 1 capsule by mouth once daily. Patient not taking: Reported on 07/27/2023 No medication comments found. ALLERGIES No Known Allergies Objective PHYSICAL EXAM: General: alert and oriented, healthy appearance and obese. Pertinent negatives noted - not distressed. Skin: normal color, no rash or lesions. HEENT: EOM intact and pupils equal round. Pertinent negatives noted - no carotid bruit. Cardiovascular: regular rate and rhythm, normal S1 and S2, no rub, murmurs, or gallop. Respiratory: normal breath sounds, no wheezes or crackles. No chest wall deformity or tenderness. Abdomen: soft. Pertinent negatives noted - not tender. Extremities: Positive for joint tenderness. Pertinent negatives noted - no edema and no joint swelling. Neurological: normal cognition and motor skills. Positive for abnormal gait. PAIN ASSESSMENT: Pain Pain Level: 3 Pain Location: Hip-Right Description: Sore Frequency: Intermittent VITALS: BP 139/98 Pulse 61 Temp 98.7 Resp 16 Ht 5' 9 (1.75m) Wt 219 lb 9.3 oz (99.6kg) SpO2 97% BMI 32.41 kg/(m^2). Diagnostic tests reviewed for today's visit: Lab Value Units Date High Low HB 14.4 g/dL 06/13/2023 17.0 13.0 HCT 43.0 % 06/13/2023 51.0 39.0 WBC 9.00 k/uL 06/13/2023 11.00 3.70 PLT 373 k/uL 06/13/2023 400 150 NA 141 mmol/L 06/13/2023 144 136 K 3.6 mmol/L 06/13/2023 5.1 3.7 GLUC 106 mg/dL 06/13/2023 99 74 BUN 8 mg/dL 06/13/2023 24 9 CREAT 0.97 mg/dL 06/13/2023 1.22 0.73 PTSEC No results within date range. INR No results within date range. APTT No results within date range. ALT 20 U/L 06/13/2023 54 10 AST 34 U/L 06/13/2023 40 14 TBILI 0.3 mg/dL 06/13/2023 1.3 0.2 TSH No results within date range. Lab Value Units Date High Low HCGQT No results within date range. UHCG No results within date range. HCG, BODY* No results within date range. Lab Value Units Date High Low ABORHD No results within date range. ABSCREEN No results within date range. No results found for: HBA1C Recent Results (from the past 8760 hour(s)) ECG COMPLETE Collection Time: 06/13/23 7:48 AM Result Value Ventricular Rate 68 Atrial Rate 68 P-R Interval 172 QRS Duration 98 QT Interval 426 QTC Calculation (Bazett) 452 Calculated P [place] 31 Calculated R [place] -45 Calculated T [place] 41 Impression NORMAL SINUS RHYTHM LEFT AXIS DEVIATION PULMONARY DISEASE PATTERN NONSPECIFIC T WAVE ABNORMALITY ABNORMAL ECG NO PREVIOUS ECGS AVAILABLE Confirmed by MD SKYLER, SINDHU ([id number]) on 06/13/2023 11:42:51 AM No results found for this or any previous visit (from the past 37865 hour(s)). The Following Tests/Procedures Have Been Initiated: Orders Placed This Encounter ibuprofen (MOTRIN IB) 200 mg tablet Sig: Take 200 mg by mouth two times a day. Instructions Given to Patient: Instructions located in the after visit summary. Patient given verbal and written preop instructions and voices comprehension and compliance. SIGNATURE: Lucie Zafar PA-C PATIENT NAME: Thomas Matias DATE: 12/08/2023 TIME: 2:43 PM PAGER/CONTACT #: documented in this encounter [facility] 12-08-2023 Instructions Lucie Zafar PA-C - 12/08/2023 9:17 AM EDT PATIENT PREOPERATIVE INSTRUCTIONS Gabino Berg MD has scheduled you for your procedure at this surgery center: [facility]: [phone] -- [address] [place] [address]. Please read below carefully for your personalized instructions. Arrival Time for Surgery: - The Surgery Center or hospital where you are having surgery will call the afternoon before surgery (or Monday for Monday surgery) with a scheduled arrival time. - If you have not heard by 4 pm, please contact the surgery center above. Please be aware that emergency situations arise, which may delay or change your surgical time. If this happens, we will notify you as soon as possible and regret any inconvenience. Dietary Restrictions: - No solid food after midnight. - You may have 12 ounces of clear liquids (water, clear juices such as apple juice or gatorade, carbonated beverages, clear tea, black coffee, jello) until 2 hours before scheduled arrival at facility. - Do not drink any alcohol after midnight the night before your surgery. Medications: Unless instructed differently below, stay on all of your medications until your surgery. Approved medications to take the morning of surgery with a sip of water: None If you take any medications for erectile dysfunction-Cialis (Tadalafil), Levitra, Staxyn (Vardenafil) Viagra (Sildenenafil please do not take these for 48 hours before surgery. If you start any new medications after today's visit, please contact the surgeon's office. Blood Thinning Medications: - Stop NSAIDS (Ibuprofen, Advil, Aleve, Motrin, Celebrex, Mobic, etc.) 7 days before surgery, as directed by your surgeon. - Stop Aspirin 7 days before surgery, as directed by your surgeon. - Stop Vitamin E, ALL multi-vitamins, herbals and dietary supplements 14 days before surgery. - You may take Tylenol (Acetaminophen) or any of your pain medications that do not contain aspirin or NSAIDS as needed. Important Reminders: - If you use CPAP/BIPAP, bring the machine with you to the surgery center. - If you are prescribed inhalers for breathing, continue using them. - Candy, mints, and tobacco products are NOT permitted the morning of surgery. - Hearing aids, dentures and glasses may be worn the morning of surgery. - NO jewelry, body piercings, makeup, hairpins or contacts are to be worn the day of surgery. If you develop symptoms such as a fever, cold, or flu, or have other changes to your health within TWO DAYS of scheduled surgery or the morning of surgery, please contact the surgery center above. Personal Belongings: -Please have photo ID and insurance cards. -If you do not have a copy of advance directives on file with us, please bring a copy with you on the day of surgery. - Leave ALL valuables and money at home or with family members. For Outpatient Procedures: - YOU MUST HAVE A RESPONSIBLE SECURITY ESCORT TAKE YOU HOME. A RN ANGIOGRAPHY OR TENT FINISHER CANNOT BE MADE A RESPONSIBLE SECURITY ESCORT. - We recommend that a responsible person stays with you overnight to take care of you. - You cannot stay in a hotel alone after outpatient surgery. You will not be permitted to have your surgery, if you do not have someone to take care of you. If you already have an Advance Directive, please fax a copy to [phone] or email to for it to be added to your chart. If you do not have an Advance Directive, you can find the appropriate form and more information at [email or web address]. We recommend that you complete the Advance Directive form found on the website and bring it with you the day of your surgery. It can be witnessed and scanned into your chart that day. Lucie Zafar PA-C documented in this encounter [facility] 12-07-2023 Telephone encounter Note CARE CONTINUUM ADVISOR ASSESSMENT PRIMARY CARE PHYSICIAN: Carine Moreno DO OR Surgery Date: 12/22/23 [facility] Appointment: n/a Health Insurance: [employer] Financial Resources: Employed: yes Primary Contact: Extended Emergency Contact Information Primary Emergency Contact: CARMEN MATIAS Relation: Spouse Other Important Patient Contacts: None Patient/Control Chemist Stated Goals: To have reduction in pain, To have reduction in symptoms, and To improve my functional status Frame Table Operator Helper needed?: No Home Phone Primary Contact: Cell Phone Primary Contact:same ADVANCE DIRECTIVES: Does Patient Have Advance Directives? No, Patient refused Does Patient Have Concerns About Advance Directives? No Education Provided: Yes SOCIAL: Living Arrangement: Home Lives With: Spouse Stairs: 2 story home 3 stairs to enter home Do you have any concerns with food and/or affording food?: No Do you have reliable transportation to and from surgery/appointments?: Yes Medication Adherence: Do you have any concerns with your prescription medication?: No Who do you use for pharmacy?: [facility] Baseline Mental Status: Alert & Oriented Informant: Self What is your current functional status?: Perform ADLs independently Equipment: Do you currently use any equipment at home for your medical condition or to help you get around? Walker Ice machine Active Services/Needs: None Do you have a community youth secretary contact through your insurance or [employer]?: No Has the Patient Been in a Shelter Facility in the Past 30 days? No FREEDOM OF CHOICE: Level of Care Discussed: Home Care Financial Disclosure Provided: Yes Financial Disclaimer Provided: Yes, regarding pre-cert / insurance authorization Provider List: Home Care Provider list within the patient's requested geographic area shared with the patient/family: Yes - Within [address] of [address] [place] [address] PAC Provider Choices Collected Home Health: [facility] Interventions: Discussed importance of active PCP relationship and follow up Discussed insurance risks, gaps, and programs available Discussed reliable transportation needs for surgery and follow up appointments ELINOR Stevens [facility] Work Phone: 12-07-2023 Miscellaneous Notes CARE CONTINUUM ADVISOR ASSESSMENT PRIMARY CARE PHYSICIAN: Carine Moreno DO OR Surgery Date: 12/22/23 [facility] Appointment: n/a Health Insurance: [employer] Financial Resources: Employed: yes Primary Contact: Extended Emergency Contact Information Primary Emergency Contact: CARMEN MATIAS Relation: Spouse Other Important Patient Contacts: None Patient/Control Chemist Stated Goals: To have reduction in pain, To have reduction in symptoms, and To improve my functional status Frame Table Operator Helper needed?: No Home Phone Primary Contact: Cell Phone Primary Contact:same ADVANCE DIRECTIVES: Does Patient Have Advance Directives? No, Patient refused Does Patient Have Concerns About Advance Directives? No Education Provided: Yes SOCIAL: Living Arrangement: Home Lives With: Spouse Stairs: 2 story home 3 stairs to enter home Do you have any concerns with food and/or affording food?: No Do you have reliable transportation to and from surgery/appointments?: Yes Medication Adherence: Do you have any concerns with your prescription medication?: No Who do you use for pharmacy?: [facility]side Pre-Hospital Baseline Mental Status: Alert & Oriented Informant: Self What is your current functional status?: Perform ADLs independently Equipment: Do you currently use any equipment at home for your medical condition or to help you get around? Walker Ice machine Active Services/Needs: None Do you have a community youth secretary contact through your insurance or [employer]?: No Has the Patient Been in a Shelter Facility in the Past 30 days? No FREEDOM OF CHOICE: Level of Care Discussed: Home Care Financial Disclosure Provided: Yes Financial Disclaimer Provided: Yes, regarding pre-cert / insurance authorization Provider List: Home Care Provider list within the patient's requested geographic area shared with the patient/family: Yes - Within [address] of [address] [place] [address] PAC Provider Choices Collected Home Health: [facility] Interventions: Discussed importance of active PCP relationship and follow up Discussed insurance risks, gaps, and programs available Discussed reliable transportation needs for surgery and follow up appointments ELINOR Stevens documented in this encounter [facility] 11-29-2023 History of Presen t illness Narrative Radiology Service Progress Note PATIENT NAME: Thomas Matias DATE OF SERVICE: November 29, 2023 TIME: 1:34 PM PATIENT IDENTITY VERIFICATION COMPLETED USING TWO (2) IDENTIFIERS: Name and Date of confirmed by patient verbally. FALL SCREENING: Has the patient had 2 falls in the last year or 1 fall with injury or currently using an Ambulatory Assistive Device (Walker, Cane, Wheelchair, Crutches, etc.)? No PATIENT GENDER DATA: Male PATIENT RELEVANT IMPLANT DATA REVIEWED: Not Applicable PATIENT PRESENTS WITH AN IMPLANTABLE OR ATTACHED ART HISTORY PROFESSOR: No RADIOLOGY DEPARTMENT: General X-ray: Exam(s) Completed: Pelvis X-Ray: Pelvis with Hip Right Lower Extremity X-Ray(s): Leg Length PERIPHERAL IV DATA: Not applicable SIGNED BY: RT Daphne(Brandon) November 29, 2023 1:34 PM documented in this encounter [facility] 11-29-2023 Note HNO ID: [id number] Author: GINI BLANCO RT(Brandon) Service: Radiology Author Type: Technologist Type: Progress Notes Filed: 11/29/2023 13:35 Note Text: Radiology Service Progress Note PATIENT NAME: Thomas Matias DATE OF SERVICE: November 29, 2023 TIME: 1:34 PM PATIENT IDENTITY VERIFICATION COMPLETED USING TWO (2) IDENTIFIERS: Name and Date of confirmed by patient verbally. FALL SCREENING: Has the patient had 2 falls in the last year or 1 fall with injury or currently using an Ambulatory Assistive Device (Walker, Cane, Wheelchair, Crutches, etc.)? No PATIENT GENDER DATA: Male PATIENT RELEVANT IMPLANT DATA REVIEWED: Not Applicable PATIENT PRESENTS WITH AN IMPLANTABLE OR ATTACHED ART HISTORY PROFESSOR: No RADIOLOGY DEPARTMENT: General X-ray: Exam(s) Completed: Pelvis X-Ray: Pelvis with Hip Right Lower Extremity X-Ray(s): Leg Length PERIPHERAL IV DATA: Not applicable SIGNED BY: RT Daphne(R) November 29, 2023 1:34 PM [facility] 10-04-2023 Note HNO ID: [id number] Author: KAJAL PRICE RN Service: ? Author Type: Registered Nurse Type: Progress Notes Filed: 10/04/2023 15:08 Note Text: Total Joint Arthroplasty: Risk Calculator Thomas Matias has a 2.63% chance of NOT returning home at discharge for a Primary total Hip replacement. Thomas's estimated Length of Stay is 1 day (Outpatient candidate). Thomas's 30 day chance of readmission is 0.47%. Readmission Probability 0.47 % (within 30 days following surgery) Estimated LOS 1 day Discharge Disposition Probability D/C to Home 97.37 % D/C to SNF 2.63 % These calculations are based on the following factors: - 43 years of age - sex is male - BMI of 33.97 kg/m2 - NarxCare score of 60 - 1 hospitalizations in the last 12 months - no history of heart disease - no history of diabetes - no history of COPD - no history of anemia - preoperative ambulation: independent community distances - 4 step(s) to enter home - bed location is NOT on the first floor - bath location is NOT on the first floor - caregiver is consistent - home is not more than 150 miles away - PROMIS-10 Mental Health T score 50+ - Marital status: [facility] 10-04-2023 History of Presen t illness Narrative Total Joint Arthroplasty: Risk Calculator Thomas Matias has a 2.63% chance of NOT returning home at discharge for a Primary total Hip replacement. Thomas's estimated Length of Stay is 1 day (Outpatient candidate). Thomas's 30 day chance of readmission is 0.47%. Readmission Probability 0.47 % (within 30 days following surgery) Estimated LOS 1 day Discharge Disposition Probability D/C to Home 97.37 % D/C to SNF 2.63 % These calculations are based on the following factors: - 43 years of age - sex is male - BMI of 33.97 kg/m2 - NarxCare score of 60 - 1 hospitalizations in the last 12 months - no history of heart disease - no history of diabetes - no history of COPD - no history of anemia - preoperative ambulation: independent community distances - 4 step(s) to enter home - bed location is NOT on the first floor - bath location is NOT on the first floor - caregiver is consistent - home is not more than 150 miles away - PROMIS-10 Mental Health T score 50+ - Marital status: documented in this encounter [facility] 10-04-2023 Note Patient Outreach (OR [facility]) THOMAS MATIAS ([id number]) 1980 M Date Time Provider Department 10/04/23 GABINO BERG During your visit today, we recorded the following information about you: Kajal Price RN 10/04/2023 8:31 AM Signed ORTHO CARE COORDINATION QUICK NOTE Surgical packet/instructions/CHG wipes sent to assistant administrator for mailing to patient home address. Kajal Price RN Allergies As of Date: 10/04/2023 (No Known Allergies) Date Reviewed: 07/27/2023 Reviewed by: Theo Rhoades MA - Fully Assessed Prescriptions as of 10/04/2023 - aspirin 325 mg tablet Take 1 tablet by mouth two times a day. - omeprazole (PRILOSEC) 20 mg capsule Take 1 capsule by mouth once daily. Problem List As Of Date 10/04/2023 Noted Resolved Obesity (BMI 30.0-34.9) [E66.9] 06/09/2023 Encounter Status:Closed by KAJAL PRICE on 10/04/23 [facility] 10-04-2023 Note HNO ID: [id number] Author: KAJAL PRICE RN Service: ? Author Type: Registered Nurse Type: Progress Notes Filed: 10/04/2023 08:31 Note Text: ORTHO CARE COORDINATION QUICK NOTE Surgical packet/instructions/CHG wipes sent to assistant administrator for mailing to patient home address. Kajal Price RN [facility] 10-04-2023 History of Presen t illness Narrative ORTHO CARE COORDINATION QUICK NOTE Surgical packet/instructions/CHG wipes sent to assistant administrator for mailing to patient home address. Kajal Price RN documented in this encounter [facility] 09-14-2023 Note HNO ID: [id number] Author: GABINO BERG MD Service: ? Author Type: Physician Type: Progress Notes Filed: 09/14/2023 15:00 Note Text: This visit was conducted as a virtual visit at patient request and consent. Patient: Thomas Matias : 1980 Date of Surgery:06/14/2023 Procedure: Bilateral hip core decompression [04058] Right iliac crest and proximal tibia bone marrow aspiration/harvest, centrifugation, and reinjection/ autologous transplantation into the necrotic lesion [76396] Bilateral hip injection of platelet rich plasma, including harvesting and preparation [0232T] HPI: Thomas Matias is a 43 year old male who presents s/p Bilateral hip core decompression. The pain has improved since surgery on the Left, but he has had flares of pain on the Right. The patient denies wound healing difficulty, fevers, or chills. PAIN EVALUATION 09/14/2023 1431 Pain Level: 2 Description: Aching;Dull;Stiffness Intervention/Comfort measure: Medication Comments: When standing/walking DVT prophylaxis/ Analgesic Medication: See medication list Review of Systems, Past Medical History, Past Surgical History, Family History, and Social History: Reviewed and charted into [email or web address]. Allergies: Patient has no known allergies. Medications: Current Outpatient Medications: aspirin 325 mg tablet omeprazole (PRILOSEC) 20 mg capsule Physical Exam: PE reveals a male with the following vitals signs: There were no vitals taken for this visit. The patient is oriented to person, place and time, and is well-appearing. Hip exam: The patient is able to smoothly range the hips. VV format Radiology Findings: (I have reviewed radiology images and reports). 08/18/23 XR Bilat hip - my interpretation perhaps small area of collapse of right hip on frog lateral view Radiologist Findings: Pelvis: No fractures or dislocations are seen. Areas of lucency surrounded by sclerosis in the femoral heads bilaterally similar to the previous study. No significant narrowing of the hip joints. Right hip: No fractures or dislocations are seen. 07/27/23 XR Bilat hips - stable appearance of femoral head architecture bilat hips Assessment: (Z98.890) Status post hip surgery (primary encounter diagnosis) (M87.051) Avascular necrosis of bone of hip, right (HCC) (M87.052) Avascular necrosis of bone of hip, left (HCC) Plan: Based upon the evaluation today and after discussions with the patient, we will proceed with the following: -Pain control: oral regimen -PT: per protocol - WBAT; we discussed activity modification -OTC meds prn -RTC as needed for closer evaluation of Right hip s/p core (we discussed JASPREET if jodi collapse or progressive sx); routine monitoring Left hip s/p core All questions were answered in detail, and the patient was pleased with the plan of care. [facility] 09-14-2023 History of Presen t illness Narrative Images from the original note were not included. This visit was conducted as a virtual visit at patient request and consent. Patient: Thomas Matias : 1980 Date of Surgery:06/14/2023 Procedure: Bilateral hip core decompression [51186] Right iliac crest and proximal tibia bone marrow aspiration/harvest, centrifugation, and reinjection/ autologous transplantation into the necrotic lesion [72271] Bilateral hip injection of platelet rich plasma, including harvesting and preparation [0232T] HPI: Thomas Matias is a 43 year old male who presents s/p Bilateral hip core decompression. The pain has improved since surgery on the Left, but he has had flares of pain on the Right. The patient denies wound healing difficulty, fevers, or chills. PAIN EVALUATION 09/14/2023 1431 Pain Level: 2 Description: Aching;Dull;Stiffness Intervention/Comfort measure: Medication Comments: When standing/walking DVT prophylaxis/ Analgesic Medication: See medication list Review of Systems, Past Medical History, Past Surgical History, Family History, and Social History: Reviewed and charted into [email or web address]. Allergies: Patient has no known allergies. Medications: Current Outpatient Medications: aspirin 325 mg tablet omeprazole (PRILOSEC) 20 mg capsule Physical Exam: PE reveals a male with the following vitals signs: There were no vitals taken for this visit. The patient is oriented to person, place and time, and is well-appearing. Hip exam: The patient is able to smoothly range the hips. VV format Radiology Findings: (I have reviewed radiology images and reports). 08/18/23 XR Bilat hip - my interpretation perhaps small area of collapse of right hip on frog lateral view Radiologist Findings: Pelvis: No fractures or dislocations are seen. Areas of lucency surrounded by sclerosis in the femoral heads bilaterally similar to the previous study. No significant narrowing of the hip joints. Right hip: No fractures or dislocations are seen. 07/27/23 XR Bilat hips - stable appearance of femoral head architecture bilat hips Assessment: (Z98.890) Status post hip surgery (primary encounter diagnosis) (M87.051) Avascular necrosis of bone of hip, right (HCC) (M87.052) Avascular necrosis of bone of hip, left (HCC) Plan: Based upon the evaluation today and after discussions with the patient, we will proceed with the following: -Pain control: oral regimen -PT: per protocol - WBAT; we discussed activity modification -OTC meds prn -RTC as needed for closer evaluation of Right hip s/p core (we discussed JASPREET if jodi collapse or progressive sx); routine monitoring Left hip s/p core All questions were answered in detail, and the patient was pleased with the plan of care. documented in this encounter [facility] 08-18-2023 History of Presen t illness Narrative Radiology Service Progress Note PATIENT NAME: Thomas Matias DATE OF SERVICE: August 18, 2023 TIME: 7:42 AM PATIENT IDENTITY VERIFICATION COMPLETED USING TWO (2) IDENTIFIERS: Name and Date of confirmed by patient verbally and Name and Date of confirmed by identification band. FALL SCREENING: Has the patient had 2 falls in the last year or 1 fall with injury or currently using an Ambulatory Assistive Device (Walker, Cane, Wheelchair, Crutches, etc.)? Yes, Patient High Risk for Falls What interventions were put in place to prevent falls during this visit? Yellow Falls Risk Wristband Applied, Instructed Patient to Call for Help if Needed, Offered Assistance with Transfers/Clothing, Instructed Patient to Remain Seated (Not on Exam Table) Until Exam, and Increased Observations by Caregivers PATIENT GENDER DATA: Male PATIENT RELEVANT IMPLANT DATA REVIEWED: Not Applicable PATIENT PRESENTS WITH AN IMPLANTABLE OR ATTACHED ART HISTORY PROFESSOR: No RADIOLOGY DEPARTMENT: General X-ray: Exam(s) Completed: Pelvis X-Ray: Pelvis with Hip Right PERIPHERAL IV DATA: Not applicable SIGNED BY: ACE Aceves August 18, 2023 7:42 AM documented in this encounter [facility] 08-18-2023 Note HNO ID: [id number] Author: AINSLEY ORTEGA CT Service: Radiology Author Type: Technologist Type: Progress Notes Filed: 08/18/2023 07:42 Note Text: Radiology Service Progress Note PATIENT NAME: Thomas Matias DATE OF SERVICE: August 18, 2023 TIME: 7:42 AM PATIENT IDENTITY VERIFICATION COMPLETED USING TWO (2) IDENTIFIERS: Name and Date of confirmed by patient verbally and Name and Date of confirmed by identification band. FALL SCREENING: Has the patient had 2 falls in the last year or 1 fall with injury or currently using an Ambulatory Assistive Device (Walker, Cane, Wheelchair, Crutches, etc.)? Yes, Patient High Risk for Falls What interventions were put in place to prevent falls during this visit? Yellow Falls Risk Wristband Applied, Instructed Patient to Call for Help if Needed, Offered Assistance with Transfers/Clothing, Instructed Patient to Remain Seated (Not on Exam Table) Until Exam, and Increased Observations by Caregivers PATIENT GENDER DATA: Male PATIENT RELEVANT IMPLANT DATA REVIEWED: Not Applicable PATIENT PRESENTS WITH AN IMPLANTABLE OR ATTACHED ART HISTORY PROFESSOR: No RADIOLOGY DEPARTMENT: General X-ray: Exam(s) Completed: Pelvis X-Ray: Pelvis with Hip Right PERIPHERAL IV DATA: Not applicable SIGNED BY: ACE Aceves August 18, 2023 7:42 AM [facility] 07-27-2023 Note HNO ID: [id number] Author: JUINOR PEDRO RT(R) Service: ? Author Type: Proof Operator Type: Progress Notes Filed: 07/27/2023 11:34 Note Text: Radiology Service Progress Note PATIENT NAME: Thomas Matias DATE OF SERVICE: July 27, 2023 TIME: 11:21 AM PATIENT IDENTITY VERIFICATION COMPLETED USING TWO (2) IDENTIFIERS: Name and Date of confirmed by patient verbally. FALL SCREENING: Has the patient had 2 falls in the last year or 1 fall with injury or currently using an Ambulatory Assistive Device (Walker, Cane, Wheelchair, Crutches, etc.)? No PATIENT GENDER DATA: Male PATIENT RELEVANT IMPLANT DATA REVIEWED: Not Applicable PATIENT PRESENTS WITH AN IMPLANTABLE OR ATTACHED ART HISTORY PROFESSOR: No RADIOLOGY DEPARTMENT: General X-ray: Exam(s) Completed: Pelvis X-Ray: Pelvis with Hip Bilateral PERIPHERAL IV DATA: Not applicable SIGNED BY: RT Daniel(R) July 27, 2023 11:21 AM [facility] 07-27-2023 Note HNO ID: [id number] Author: GABINO BERG MD Service: ? Author Type: Physician Type: Progress Notes Filed: 07/27/2023 11:42 Note Text: Post-Op Visit Patient: Thomas Matias : 1980 Date of Surgery:06/14/2023 Procedure: Bilateral hip core decompression [29759] Right iliac crest and proximal tibia bone marrow aspiration/harvest, centrifugation, and reinjection/ autologous transplantation into the necrotic lesion [59346] Bilateral hip injection of platelet rich plasma, including harvesting and preparation [0232T] HPI: Thomas Matias is a 42 year old male who presents s/p Bilateral hip core decompression. The pain has improved since surgery. The patient denies wound healing difficulty, fevers, or chills. PAIN EVALUATION No data found in the last 1 encounters. DVT prophylaxis/ Analgesic Medication: See medication list Review of Systems, Past Medical History, Past Surgical History, Family History, and Social History: Reviewed and charted into [email or web address]. Allergies: Patient has no known allergies. Medications: Current Outpatient Medications: aspirin 325 mg tablet omeprazole (PRILOSEC) 20 mg capsule Physical Exam: PE reveals a male with the following vitals signs: There were no vitals taken for this visit. The patient is oriented to person, place and time, and is well-appearing. The patient has a stable gait. Hip exam: The patient is able to smoothly range the hips. ROM - Hip Flexion: 100 Hip Extension: 10 Incision: healing well Radiology Findings: (I have reviewed radiology images and reports). 07/27/23 XR Bilat hips - stable appearance of femoral head architecture bilat hips Assessment: (Z98.890) Status post hip surgery - Bilat hip core (primary encounter diagnosis) Plan: Based upon the evaluation today and after discussions with the patient, we will proceed with the following: -Pain control: oral regimen -PT: per protocol - WBAT -RTC 6 months with XR Bilat hips s/p core All questions were answered in detail, and the patient was pleased with the plan of care. [facility] 07-27-2023 History of Presen t illness Narrative Radiology Service Progress Note PATIENT NAME: Thomas Matias DATE OF SERVICE: July 27, 2023 TIME: 11:21 AM PATIENT IDENTITY VERIFICATION COMPLETED USING TWO (2) IDENTIFIERS: Name and Date of confirmed by patient verbally. FALL SCREENING: Has the patient had 2 falls in the last year or 1 fall with injury or currently using an Ambulatory Assistive Device (Walker, Cane, Wheelchair, Crutches, etc.)? No PATIENT GENDER DATA: Male PATIENT RELEVANT IMPLANT DATA REVIEWED: Not Applicable PATIENT PRESENTS WITH AN IMPLANTABLE OR ATTACHED ART HISTORY PROFESSOR: No RADIOLOGY DEPARTMENT: General X-ray: Exam(s) Completed: Pelvis X-Ray: Pelvis with Hip Bilateral PERIPHERAL IV DATA: Not applicable SIGNED BY: RT Daniel(R) July 27, 2023 11:21 AM documented in this encounter [facility] 07-27-2023 History of Presen t illness Narrative Images from the original note were not included. Post-Op Visit Patient: Thomas Matias : 1980 Date of Surgery:06/14/2023 Procedure: Bilateral hip core decompression [10616] Right iliac crest and proximal tibia bone marrow aspiration/harvest, centrifugation, and reinjection/ autologous transplantation into the necrotic lesion [10495] Bilateral hip injection of platelet rich plasma, including harvesting and preparation [0232T] HPI: Thomas Matias is a 42 year old male who presents s/p Bilateral hip core decompression. The pain has improved since surgery. The patient denies wound healing difficulty, fevers, or chills. PAIN EVALUATION No data found in the last 1 encounters. DVT prophylaxis/ Analgesic Medication: See medication list Review of Systems, Past Medical History, Past Surgical History, Family History, and Social History: Reviewed and charted into [email or web address]. Allergies: Patient has no known allergies. Medications: Current Outpatient Medications: aspirin 325 mg tablet omeprazole (PRILOSEC) 20 mg capsule Physical Exam: PE reveals a male with the following vitals signs: There were no vitals taken for this visit. The patient is oriented to person, place and time, and is well-appearing. The patient has a stable gait. Hip exam: The patient is able to smoothly range the hips. ROM - Hip Flexion: 100 Hip Extension: 10 Incision: healing well Radiology Findings: (I have reviewed radiology images and reports). 07/27/23 XR Bilat hips - stable appearance of femoral head architecture bilat hips Assessment: (Z98.890) Status post hip surgery - Bilat hip core (primary encounter diagnosis) Plan: Based upon the evaluation today and after discussions with the patient, we will proceed with the following: -Pain control: oral regimen -PT: per protocol - WBAT -RTC 6 months with XR Bilat hips s/p core All questions were answered in detail, and the patient was pleased with the plan of care. documented in this encounter [facility] 06-30-2023 Note HNO ID: [id number] Author: OUSMANE KELLY PA-C Service: ? Author Type: Physician Glass Blower Type: Progress Notes Filed: 06/30/2023 10:13 Note Text: Post-Op Visit This visit was conducted as a virtual visit at patient request and consent. Patient: Thomas aMtias : 1980 Date of Surgery:06/14/2023 Procedure: Bilateral hip core decompression [69647] Right iliac crest and proximal tibia bone marrow aspiration/harvest, centrifugation, and reinjection/ autologous transplantation into the necrotic lesion [45479] Bilateral hip injection of platelet rich plasma, including harvesting and preparation [0232T] HPI: Thomas Matias is a 42 year old male who presents s/p Bilateral hip core decompression. The pain has improved since surgery. The patient denies wound healing difficulty, fevers, or chills. PAIN EVALUATION 06/30/2023 0935 Pain Level: 3 DVT prophylaxis/ Analgesic Medication: See medication list Review of Systems, Past Medical History, Past Surgical History, Family History, and Social History: Reviewed and charted into [email or web address]. Allergies: Patient has no known allergies. Medications: Current Outpatient Medications: aspirin 325 mg tablet omeprazole (PRILOSEC) 20 mg capsule Physical Exam: PE reveals a male with the following vitals signs: There were no vitals taken for this visit. The patient is oriented to person, place and time, and is well-appearing. The patient has a stable gait. Hip exam: The patient is able to smoothly range the hip. ROM - Hip Flexion: Not assessed Hip Extension: Not assessed Incision: Per patient, healing well - clean, dry, and intact; no erythema, drainage, or other signs of infection. Sutures removed previously removed. Radiology Findings: (I have reviewed radiology images and reports). No new images Assessment: (Z98.890) Status post hip surgery (primary encounter diagnosis) (M87.051) Avascular necrosis of bone of hip, right (HCC) (M87.052) Avascular necrosis of bone of hip, left (HCC) Plan: Based upon the evaluation today and after discussions with the patient, we will proceed with the following: -DVT prophylaxis - ASA 325 mg BID x 6 weeks post-op - states that he is only taking it daily as he often forgets the afternoon dose -Pain control: oral regimen -PT: per protocol - WBAT, ok to wean away from crutches as tolerated -RTC 4 weeks with XR prior All questions were answered in detail, and the patient was pleased with the plan of care. Ousmane Kelly PA-C [facility] 06-30-2023 History of Presen t illness Narrative Images from the original note were not included. Post-Op Visit This visit was conducted as a virtual visit at patient request and consent. Patient: Thomas Matias : 1980 Date of Surgery:06/14/2023 Procedure: Bilateral hip core decompression [77992] Right iliac crest and proximal tibia bone marrow aspiration/harvest, centrifugation, and reinjection/ autologous transplantation into the necrotic lesion [61860] Bilateral hip injection of platelet rich plasma, including harvesting and preparation [0232T] HPI: Thomas Matias is a 42 year old male who presents s/p Bilateral hip core decompression. The pain has improved since surgery. The patient denies wound healing difficulty, fevers, or chills. PAIN EVALUATION 06/30/2023 0935 Pain Level: 3 DVT prophylaxis/ Analgesic Medication: See medication list Review of Systems, Past Medical History, Past Surgical History, Family History, and Social History: Reviewed and charted into [email or web address]. Allergies: Patient has no known allergies. Medications: Current Outpatient Medications: aspirin 325 mg tablet omeprazole (PRILOSEC) 20 mg capsule Physical Exam: PE reveals a male with the following vitals signs: There were no vitals taken for this visit. The patient is oriented to person, place and time, and is well-appearing. The patient has a stable gait. Hip exam: The patient is able to smoothly range the hip. ROM - Hip Flexion: Not assessed Hip Extension: Not assessed Incision: Per patient, healing well - clean, dry, and intact; no erythema, drainage, or other signs of infection. Sutures removed previously removed. Radiology Findings: (I have reviewed radiology images and reports). No new images Assessment: (Z98.890) Status post hip surgery (primary encounter diagnosis) (M87.051) Avascular necrosis of bone of hip, right (HCC) (M87.052) Avascular necrosis of bone of hip, left (HCC) Plan: Based upon the evaluation today and after discussions with the patient, we will proceed with the following: -DVT prophylaxis - ASA 325 mg BID x 6 weeks post-op - states that he is only taking it daily as he often forgets the afternoon dose -Pain control: oral regimen -PT: per protocol - WBAT, ok to wean away from crutches as tolerated -RTC 4 weeks with XR prior All questions were answered in detail, and the patient was pleased with the plan of care. Ousmane Kelly PA-C documented in this encounter [facility] 06-14-2023 Note HNO ID: [id number] Author: BALTA CHINO APRN.CRNA Service: ? Author Type: Nurse Protection Agent Type: Anesthesia Procedure Notes Filed: 06/14/2023 12:17 Note Text: ANESTHESIOLOGY PROCEDURE NOTE Airway General Information Procedure Start Time/Medication Administration: 06/14/2023 12:06 PM Patient location during procedure: OR Timeout Performed Pre-procedure: timeout performed Consent Obtained: Yes Patient identity confirmed: arm band and patient Staffing AUTO WASH BUFFER: Balta Chino APRN.AUTO WASH BUFFER Indications and Patient Condition Indications for airway management: anesthesia Preoxygenated: yes anesthesia circuit Patient position: sniffing Method: asleep Difficult Mask: No Final Airway Details Final airway type: supraglottic airway Number of attempts at approach: 1 Final Supraglottic Airway: i-gel Size 4 Seal Adequate: yes Airway not difficult SIGNATURE: Balta Chino APRN.AUTO WASH BUFFER PATIENT NAME: Thomas Matias DATE: June 14, 2023 TIME: 12:17 PM CSN: [id number] [facility] 06-13-2023 Miscellaneous Notes Please review pt's unconfirmed EKG in scanned docs.Thanks! documented in this encounter [facility] 06-09-2023 Instructions Pam Castaneda PA-C - 06/09/2023 7:42 AM EST PATIENT PREOPERATIVE INSTRUCTIONS Gabino Berg MD has scheduled you for your procedure at this surgery center: [facility]: [phone] -- [id number] [id number]. Please read below carefully for your personalized instructions. Dietary Restrictions: - No solid food after midnight. - You may have 12 ounces of clear liquids (water, clear juices such as apple juice or gatorade, carbonated beverages, clear tea, black coffee, jello) until 2 hours before scheduled arrival at facility. Medications: Unless instructed differently below, stay on all of your medications until your surgery. If you start any new medications after today's visit, please contact your surgeon. Pre-Surgery Med Instructions Medication Instructions acetaminophen (TYLENOL ORAL) Do not take the day of surgery If you take any medications for erectile dysfunction-Cialis (Tadalafil), Levitra, Staxyn (Vardenafil) Viagra (Sildenenafil please do not take these for 48 hours before surgery. If you start any new medications after today's visit, please contact the surgeon's office. Blood Thinning Medications: - Stop NSAIDS (Ibuprofen, Advil, Aleve, Motrin, Celebrex, Mobic, etc.) 7 days before surgery, as directed by your surgeon. - Stop Aspirin 7 days before surgery, as directed by your surgeon. - Stop Vitamin E, ALL multi-vitamins, herbals and dietary supplements 7 days before surgery. - You may take Tylenol (Acetaminophen) or any of your pain medications that do not contain aspirin or NSAIDS as needed. Important Reminders: - If you use CPAP/BIPAP, bring the machine with you to the surgery center. - If you are prescribed inhalers for breathing, continue using them. - Candy, mints, and tobacco products are NOT permitted the morning of surgery. - Hearing aids, dentures and glasses may be worn the morning of surgery. - NO jewelry, body piercings, makeup, hairpins or contacts are to be worn the day of surgery. If you develop symptoms such as a fever, cold, or flu, or have other changes to your health within TWO DAYS of scheduled surgery or the morning of surgery, please contact the surgery center above. Personal Belongings: -Please have photo ID and insurance cards. -If you do not have a copy of advance directives on file with us, please bring a copy with you on the day of surgery. - Leave ALL valuables and money at home or with family members. For Outpatient Procedures: - YOU MUST HAVE A RESPONSIBLE SECURITY ESCORT TAKE YOU HOME. A RN ANGIOGRAPHY OR TENT FINISHER CANNOT BE MADE A RESPONSIBLE SECURITY ESCORT. - We recommend that a responsible person stays with you overnight to take care of you. - You cannot stay in a hotel alone after outpatient surgery. You will not be permitted to have your surgery, if you do not have someone to take care of you. Arrival Time for Surgery: - The Surgery Center or hospital where you are having surgery will call the afternoon before surgery (or Monday for Monday surgery) with a scheduled arrival time. - If you have not heard by 4 pm, please contact the surgery center above. Please be aware that emergency situations arise, which may delay or change your surgical time. If this happens, we will notify you as soon as possible and regret any inconvenience. If you already have an Advance Directive, please fax a copy to [phone] or email to for it to be added to your chart. If you do not have an Advance Directive, you can find the appropriate form and more information at [email or web address]. We recommend that you complete the Advance Directive form found on the website and bring it with you the day of your surgery. It can be witnessed and scanned into your chart that day. Pam Castaneda PA-C documented in this encounter [facility] 06-09-2023 History and physical note HISTORY AND PHYSICAL EXAMINATION SERVICE DATE: 06/09/2023 SERVICE TIME: 7:27 AM PRIMARY CARE PHYSICIAN: Carine Moreno DO Assessment Patient has the following medical conditions which may affect darcie-operative course: Obesity (BMI 30.0-34.9) Assessment: BMI 34 Spencer Activity Status Index: METS: Climb a flight of stairs or walk up a hill (5.50 METs) DASI Score: 5.5 Patient denies any chest pain or undue shortness of breath with the above physical activity. Clinical Frailty Scale: 2. Well STOP-Bang Score: Snores loudly Male patient Denies feeling tired, fatigued, or sleepy during the daytime Has not been observed to stop breathing or choking/gasping during sleep Denies having high blood pressure BMI less than or equal to 35 kg/m^2 Patient 50 years old or younger Does not have a large neck STOP-Bang Score: 2 [id number] Score: [id number] Score: 0 ANESTHESIA FINDINGS: Intubation History: No history of difficult intubation Significant Anesthesia Considerations: none Airway History: No history of difficult airway I - PHYSICAL EVALUATION AIRWAY Patient intubated: No. Tracheostomy tube not present Mallampati: III. TM distance: >3 FB. Neck ROM: full ROM without neurological symptoms. Mouth opening: adequate. Short neck: no. Thick neck: no Cerrato present: no Lip Bite Test: III Microretrognathia/Micronagthia/R ecessed Chin: Yes DENTAL Dental findings: missing tooth/teeth. Additional comments: Veneers- front upper. II - ANESTHESIA PLAN Anesthetic plan additional comments: *PACC/TCI - anesthesia choice. Beta Liana Monitoring Plan Post Procedure Analgesic Plan Prepared for Surgery: optimally prepared for surgery, pending [see comment]. Labs and ECG- to be done 06/13/2023 at [facility] CONSULTS: Patient does not require consults for optimization at this time Planned Anesthetic: anesthesia choice The Following Tests/Procedures Have Been Initiated: Orders Placed This Encounter acetaminophen (TYLENOL ORAL) Sig: Take by mouth. This is a virtual visit using [employer] video visit. It required patient-provider interaction for the medical decision making as documented below. REASON FOR VISIT: Thomas Matias is a 42 year old male who is scheduled for Procedure(s) with comments: INCISION, BONE CORTEX, PELVIS AND/OR HIP JOINT (Bilateral) - Ivette Perfuse SCP, Romel Table, Fluoro at the request of Dr. Gabino Berg for consultation. My final recommendation will be communicated back to the requesting physician by way of shared medical record or letter. Subjective The patient has the following: ACTIVE PROBLEM LIST Obesity (Bmi 30.0-34.9) COVID-19 Immunization Status Overdue - Covid-19 Vaccine (1) Never done No completion, postpone, frequency change, or communication history exists for this topic. CHIEF COMPLAINT: Avascular necrosis of bone of hip, right HPI: Thomas Matias is a 42 year old male who is scheduled for Procedure(s) with comments: INCISION, BONE CORTEX, PELVIS AND/OR HIP JOINT (Bilateral) - Ivette Perfuse SCP, Romel Table, Fluoro at the request of Dr. Gabino Berg for 06/14/2023. He reports bilateral hip pain R>L since 03/2023. Pain is worse with activity. He takes tylenol with mild improvement in symptoms. He reports hospitalization for COVID ~2 years ago with high dose steroids that he believes may have led to avascular necrosis. This is a virtual visit. The visit was conducted using [employer] video visit. It required patient-provider interaction for the medical decision making as documented below. I have communicated my name and active licensure. The patient's identity and physical location were verified at the time of this visit. Either the patient or their legal digital media representative has been informed of the risks and benefits of and alternatives to treatment through a remote evaluation and consents to proceed with the evaluation remotely. REVIEW OF SYSTEMS: General: No weight loss, malaise or fevers. Neurological: No history of TIA's, stroke, MANAGER OF MANUFACTURING tumor, impaired sensorium, hemiplegia, paraplegia or quadraplegia. No neurological symptoms or problems. Respiratory: No history of current cough or dyspnea, or pneumonia in the past 6 weeks. No history of respiratory/pulmonary symptoms or problems. Cardiovascular: No history of HTN requiring medication, no history of angina, CHF, DC, cardiac surgery or stents. Denies rest pain, gangrene or revascularization/amputation for PVD. No history of cardiovascular symptoms or problems. GI: No history of GI symptoms or problems. No history of esophageal varices, recent ascites, or ETOH greater than 2 drinks per day. : No history of dysuria, frequency or incontinence, stones or chronic kidney disease. No difficulty urinating, nocturia > 1 time per night or hematuria. Endocrine: No history of diabetes. Has not taken steroids within the past 30 days. No history of endocrinological symptoms or problems. Hematology: No history of bleeding or clotting disorder. Patient is not taking anti-coagulation or platelet medications. No history of hematological symptoms or problems. Oncology: No history of CA metastasis, chemo within 30 days, or radiotherapy within 90 days. No history of oncological symptoms or problems. Psych: No history of psychiatric symptoms or problems. Musculoskeletal: See HPI. Skin: Negative for lesions, rash and itching. History reviewed. No pertinent past medical history. PAST SURGICAL HISTORY Procedure Laterality Date ARTHROSCOPY KNEE DIAGNOSTIC W/WO SYNOVIAL BX SPX 1999 ACL repair (Dr. Flores) PAST SURGICAL HISTORY OF 1999 oral surgery -- abscess tooth/jaw PAST SURGICAL HISTORY OF wisdom FAMILY HISTORY Adopted: Yes Social History Tobacco Use Smoking status: Former Years: 2 Types: Cigarettes Quit date: 05/27/2006 Years since quittin.0 Substance Use Topics Alcohol use: Not Currently Drug use: Not Currently Prior to Admission medications as of 06/09/23 0743 Medication Sig Last Dose Taking acetaminophen (TYLENOL ORAL) Take by mouth. Taking Yes No medication comments found. ALLERGIES No Known Allergies Objective PHYSICAL EXAM: (if completed, exam performed via video enabled technology) General: alert and oriented and healthy appearance. Pertinent negatives noted - not distressed. Skin: normal color, no rash or lesions. HEENT: EOM intact and pupils equal round. Throat; OROPHARYNX: moist mucus membranes. Neck; full ROM, no cervical LNs noted. Cardiovascular: Pulse characterized as regular.RRR, confirmed with radial pulse exam. Respiratory: Breathing non-labored . Abdomen: Pertinent negatives noted - not tender. Extremities: no deformity, no edema or tenderness, no joint swelling or clubbing. Neurological: normal cognition and motor skills. PAIN ASSESSMENT: VITALS: Ht 5' 9 (1.75m) Wt 230 lb (104.3kg) BMI 33.95 kg/(m^2). Diagnostic tests reviewed for today's visit: Lab Value Units Date High Low HB No results within date range. HCT No results within date range. WBC No results within date range. PLT No results within date range. NA No results within date range. K No results within date range. GLUC No results within date range. BUN No results within date range. CREAT No results within date range. PTSEC No results within date range. INR No results within date range. APTT No results within date range. ALT No results within date range. AST No results within date range. TBILI No results within date range. TSH No results within date range. Lab Value Units Date High Low HCGQT No results within date range. UHCG No results within date range. HCG, BODY* No results within date range. Lab Value Units Date High Low ABORHD No results within date range. ABSCREEN No results within date range. No results found for: HBA1C No results found for this or any previous visit (from the past 8760 hour(s)). No results found for this or any previous visit (from the past 83257 hour(s)). Instructions Given to Patient: Instructions located in the after visit summary. Patient given verbal and written preop instructions and voices comprehension and compliance. SIGNATURE: Pam Castaneda PA-C PATIENT NAME: Thomas Matias DATE: June 09, 2023 TIME: 11:08 AM PAGER/CONTACT #: documented in this encounter [facility] 06-05-2023 Note HNO ID: [id number] Author: KAJAL PRICE RN Service: ? Author Type: Registered Nurse Type: Progress Notes Filed: 06/05/2023 12:49 Note Text: ORTHO CARE COORDINATION QUICK NOTE Patient has been identified by name and date of : Yes Patient seen in office today by Dr. Berg and signed up for orthopaedic surgery - BL Hip Core Decompression. This nurse provided general pre-op teaching in office and all questions answered. Surgical packet reviewed in detail. Patient confirmed they will read through all the surgical packet information and instructions at home as well. Patient is aware of need for completing pre-op testing / PACC / crutch training along with any pre-op risk assessments/clearance that may be needed ahead of surgery. Detailed instructions included in pre-op testing checklist for patient to refer to. Patient is aware he will need to ambulate with crutches and protected WB to BLE (4-point Gait) for the first 2 weeks post-op. Patient aware of need to stop all NSAIDs/vitamins/supplements 7 days pre-op per Dr. Berg's protocol. Patient aware of need to be NPO after midnight the night before surgery per packet instructions. Patient is aware that they will be notified by PACC as to what home medications they can take the morning of surgery with a sip of water. PT and post-op follow-up protocol reviewed in detail. Kajal Price RN June 05, 2023 12:16 PM [facility] 06-05-2023 Note HNO ID: [id number] Author: GABINO BERG MD Service: ? Author Type: Physician Type: Progress Notes Filed: 06/05/2023 12:57 Note Text: Patient: Thomas Matias : 1980 Providers Referring physician: Doyle Urbina Chief complaint: Patient presents with: Hip Pain Bilat hip AVN Patient seen in subspecialty orthopedic hip consultation at the request of Doyle Urbina. The final recommendations will be communicated back to the requesting clinician by way of the shared medical record or letter via US mail. HPI: Thomas Matias is a 42 year old male seen with a 2 months history of bilateral hip pain. The onset of pain has been actue, and the pain is staying the same.. The pain primarily localizes: right groin pain, left groin pain, right buttock pain, and left buttock pain. PAIN EVALUATION 06/05/2023 1118 Pain Level: 5 Description: Aching Duration Amount of Time: 2 Duration Units: Months Frequency: Intermittent Intervention/Comfort measure: Medication;Reposition The patient denies preceding traumatic injury. The patient does have pain with weight-bearing. The patient does not have pain at night. The patient has no difficulty with placing shoes and socks. The pain is exacerbated with ADL's, managing stairs, prolonged standing, recreational activities, and walking. He denies numbness, tingling, or electric shocks. He denies popping, clicking, catching, locking, grinding, instability, buckling, or giving way. Alleviating factors: Meds, Sitting, Lying, and Frequent Changing Positions Prior pertinent orthopedic surgery: none Prior interventions: Physical therapy: No Injections/ aspiration: No Bracing: No Assistive devise: no assistive device Pain medications: Ibuprofen and Tylenol Past Medical History No past medical history on file. Past Surgical History PAST SURGICAL HISTORY Procedure Laterality Date KNEE SCOPE,DIAGNOSTIC 1999 ACL repair (Dr. Flores) PAST SURGICAL HISTORY OF 1999 oral surgery -- abscess tooth/jaw PAST SURGICAL HISTORY OF wisdom Family History FAMILY HISTORY Adopted: Yes Social History Social History Tobacco Use Smoking status: Former Types: Cigarettes Quit date: 05/27/2006 Years since quittin.0 Substance Use Topics Alcohol use: Yes Allergies: ALLERGIES No Known Allergies Medications No current outpatient medications on file. Review of Systems: Reviewed and charted into [email or web address]. Physical Exam: PE reveals a male with the following vitals signs: Ht 175.3 cm (5' 9) Wt 104.3 kg (230 lb) BMI 33.97 kg/m? Body mass index is 33.97 kg/m?. General appearance: Well appearing, alert, in no acute distress, well-hydrated, well nourished. Psych: Mood and affect broad and appropriate Head: Normocephalic, no masses, lesions, tenderness or abnormalities Eyes: Anicteric sclera. Pupils are equally round and reactive to light. Extraocular movements are intact. ENT: Nares patent Heart: Regular rate and rhythm Lymph: There is no lymphadenopathy. The patient has a stable gait with no assistance. There is a negative Trendelenberg sign. HIP EXAM: Right Left Hip extension 10 degrees 10 degrees Hip flexion 90 degrees 90 degrees Hip IR (supine) 20 degrees 20 degrees Hip ER (supine) 40 degrees 40 degrees Hip aBduction 40 degrees 40 degrees Hip aDduction 15 degrees 15 degrees Knee extension 0 degrees 0 degrees Knee flexion 110 degrees 110 degrees Straight leg raise Intact Intact Knee effusion No No Knee stable Yes Yes Point tenderness on palpation: The bilateral hip is tender over the anterior aspect of the hip. Pain with resisted hip flexion: positive Pain with passive hip rotation: positive Skin: Normal temperature without erythema Scars: No Motor/sensory function: Intact DP/PT pulses: 2+ KNEE EXAM: Examination of the knees demonstrates normal ROM without pain. LUMBAR SPINE: Examination of the lumbar spine demonstrates normal ROM. Straight leg raise is negative bilaterally. Patellar tendon and Achilles tendon reflexes are 2/4 bilaterally. Radiology Findings: (I have reviewed appropriate radiology images and reports.) 04/25/23 Right hip XR (outside): No significant degenerative changes. 05/25/23 Right hip MRI (outside): -Bilateral femoral head AVN -Right anterior acetabular labral tear -No significant degenerative changes Assessment: (M87.051) Avascular necrosis of bone of hip, right (HCC) (primary encounter diagnosis) (M87.052) Avascular necrosis of bone of hip, left (HCC) (S73.191A) Tear of right acetabular labrum, initial encounter Plan: I had a lengthy discussion with the patient regarding history and physical examination findings, as well as available diagnostic and imaging studies. We talked about risk factors for avascular necrosis, etiology of this process, and the spectrum of treatment options including nonsurgical and surgical manag (more content not included)... [facility] Evaluation note Diagnosis Onset Date HNP (herniated nucleus pulposus), lumbar acute [facility] Work Phone: Evaluation note* Diagnosis Onset Date Resolution Status HNP (herniated nucleus pulposus), lumbar acute Osteonecrosis of both hips a cute [facility] Work Phone: Evaluation note* Diagnosis Pre-op evaluation- Primary Preoperative examination, unspecified Obesity (BMI 30.0-34.9) Obesity, unspecified Avascular necrosis of bone of hip, right (HCC) Avascular necrosis of bone of hip, left (HCC) Bilateral hip pain Pain in joint, pelvic region and thigh Pre-op testing Preoperative examination, unspecified [facility]* Diagnosis Status post hip surgery- Primary Other postprocedural status Avascular necrosis of bone of hip, right (HCC) Avascular necrosis of bone of hip, left (HCC) [facility] Status post hip surgery - Bilat hip core- Primary Other postprocedural status [facility] Status post hip surgery Other postprocedural status Avascular necrosis of bone of hip, right (HCC) Bilateral hip pain Pain in joint, pelvic region and thigh [facility] Diagnosis Status post hip surgery- Primary Other postprocedural status Avascular necrosis of bone of hip, right (HCC) Avascular necrosis of bone of hip, left (HCC) [facility] Avascular necrosis of bone of hip, right (HCC)- Primary Bilateral hip pain Pain in joint, pelvic region and thigh Status post hip surgery Other postprocedural status Pre-op testing Preoperative examination, unspecified Tear of right acetabular labrum, initial encounter [facility] Avascular necrosis of bone of hip, right (HCC) Bilateral hip pain Pain in joint, pelvic region and thigh Status post hip surgery Other postprocedural status Pre-op testing Preoperative examination, unspecified Tear of right acetabular labrum, initial encounter Avascular necrosis of bone of hip, right (HCC) Bilateral hip pain Pain in joint, pelvic region and thigh Status post hip surgery Other postprocedural status Pre-op testing Preoperative examination, unspecified Tear of right acetabular labrum, initial encounter documented in this encounter [facility] note* Diagnosis Pre-op evaluation- Primary Preoperative examination, unspecified Obesity (BMI 30.0-34.9) Obesity, unspecified Avascular necrosis of bone of hip, right (HCC) Bilateral hip pain Pain in joint, pelvic region and thigh Status post hip surgery Other postprocedural status Pre-op testing Preoperative examination, unspecified Tear of right acetabular labrum, initial encounter * Assessment & Plan Note - Lucie Zafar PA-C - 12/08/2023 9:52 AM EDTAssociated Problem(s): Obesity (BMI 30.0-34.9) Assessment: Body mass index is 32.43 kg/m . documented in this encounter [facility] note* Diagnosis Pre-op evaluation- Primary Preoperative examination, unspecified Obesity (BMI 30.0-34.9) Obesity, unspecified Pre-op evaluation- Primary Preoperative examination, unspecified Obesity (BMI 30.0-34.9) Obesity, unspecified Status post total hip replacement, right- Primary documented in this encounter [facility] note* Diagnosis Pre-op evaluation- Primary Preoperative examination, unspecified Obesity (BMI 30.0-34.9) Obesity, unspecified Avascular necrosis of bone of hip, right (HCC) Avascular necrosis of bone of hip, left (HCC) Bilateral hip pain Pain in joint, pelvic region and thigh Pre-op evaluation- Primary Preoperative examination, unspecified Obesity (BMI 30.0-34.9) Obesity, unspecified documented in this encounter [facility] note* Diagnosis Pre-op evaluation- Primary Preoperative examination, unspecified Obesity (BMI 30.0-34.9) Obesity, unspecified Pre-op evaluation- Primary Preoperative examination, unspecified Obesity (BMI 30.0-34.9) Obesity, unspecified Status post total hip replacement, right- Primary documented in this encounter [facility] note* Diagnosis Pre-op evaluation- Primary Preoperative examination, unspecified Obesity (BMI 30.0-34.9) Obesity, unspecified Pre-op evaluation- Primary Preoperative examination, unspecified Obesity (BMI 30.0-34.9) Obesity, unspecified Avascular necrosis of bone of hip, right (HCC) Bilateral hip pain Pain in joint, pelvic region and thigh Status post hip surgery Other postprocedural status Tear of right acetabular labrum, initial encounter documented in this encounter [facility] noteNo assessment information availableWMartin Memorial Hospital Work Phone: [facility] for referral (narrative)* Diagnostic Procedure Only (Routine) - Closed Specialty Diagnoses / Procedures Referred By Thomas malone Referred To Contact XR IMAGING Diagnoses Status post hip surgery Avascular necrosis of bone of hip, right (HCC) Bilateral hip pain Procedures XR HIP GENERAL 3V PELV/AP/LAT RIGHT RADEX HIP UNILATERAL WITH PELVIS 2-3 VIEWS Ant Luna PA-C [address] [place] [address] X[facility] Imaging [place] [address] Referral ID Status Reason Start Date Expiration Date V isits Requested Visits Authorized [id number] Closed Auto-Generate d Referral 08/14/2023 09/12/[address] [facility] for referral (narrative)* Diagnostic Procedure Only (Routine) - Closed Specialty Diagnoses / Procedures Referred By Thomas malone Referred To Contact XR IMAGING Diagnoses Avascular necrosis of bone of hip, right (HCC) Avascular necrosis of bone of hip, left (HCC) Bilateral hip pain Procedures XR HIP BILATERAL 5V PEL/AP/LAT EACH HIP RADEX HIPS BILATERAL WITH PELVIS MINIMUM 5 VIEWS Ousmane Kelly PA-C [address] [place] [phone] [facility] [place] [address] Referral ID Status Reason Start Date Expiration Date V isits Requested Visits Authorized [id number] Closed Auto-Generate d Referral 07/27/2023 07/05/[address] [facility] for referral (narrative)* Diagnostic Procedure Only (Routine) - Closed Specialty Diagnoses / Procedures Referred By Contac t Referred To Contact XR IMAGING Diagnoses Avascular necrosis of bone of hip, right (HCC) Bilateral hip pain Status post hip surgery Tear of right acetabular labrum, initial encounter Procedures XR HIP GENERAL 3V PELV/AP/LAT RIGHT RADEX HIP UNILATERAL WITH PELVIS 2-3 VIEWS Ousmane Kelly PA-C [address] [place] [phone] [facility] [place] [address] Referral ID Status Reason Start Date Expiration Date V isits Requested Visits Authorized [id number] Closed Auto-Generate d Referral 02/01/2024 11/02/[address] [facility] for referral (narrative)No reason for referral information availableWMartin Memorial Hospital Work Phone: [facility] for visit Narrative* Diagnostic Procedure Only (Routine) - Closed Specialty Diagnoses / Procedures Referred By Thomas malone Referred To Contact XR IMAGING Diagnoses Status post hip surgery Avascular necrosis of bone of hip, right (HCC) Bilateral hip pain Procedures XR HIP GENERAL 3V PELV/AP/LAT RIGHT RADEX HIP UNILATERAL WITH PELVIS 2-3 VIEWS Ant Luna PA-C [address] [place] [phone] Xr Imaging [facility]95 Referral ID Status Reason Start Date Expiration Date V isits Requested Visits Authorized [id number] Closed Auto-Generate d Referral 08/14/2023 09/12/[address] [facility] for visit Narrative* Diagnostic Procedure Only (Routine) - Closed Specialty Diagnoses / Procedures Referred By Contac t Referred To Contact XR IMAGING Diagnoses Avascular necrosis of bone of hip, right (HCC) Bilateral hip pain Status post hip surgery Pre-op testing Tear of right acetabular labrum, initial encounter Procedures XR HIP GENERAL 3V PELV/AP/LAT RIGHT RADEX HIP UNILATERAL WITH PELVIS 2-3 VIEWS Ousmane Kelly PA-C [address] [place] [phone] Xr Imaging [facility]95 Referral ID Status Reason Start Date Expiration Date V isits Requested Visits Authorized [id number] Closed Auto-Generate d Referral 11/29/2023 11/02/[address] [facility] for visit Narrative* Diagnostic Procedure Only (Routine) - Closed Specialty Diagnoses / Procedures Referred By Contac t Referred To Contact XR IMAGING Diagnoses Avascular necrosis of bone of hip, right (HCC) Avascular necrosis of bone of hip, left (HCC) Bilateral hip pain Procedures XR HIP BILATERAL 5V PEL/AP/LAT EACH HIP RADEX HIPS BILATERAL WITH PELVIS MINIMUM 5 VIEWS GearyOusmane, PA-C [address] [place] [address] Xr Imaging [facility]95 Referral ID Status Reason Start Date Expiration Date V isits Requested Visits Authorized [id number] Closed Auto-Generate d Referral 07/27/2023 07/05/[address] [facility] for visit Narrative* Diagnostic Procedure Only (Routine) - Closed Specialty Diagnoses / Procedures Referred By Contac t Referred To Contact XR IMAGING Diagnoses Avascular necrosis of bone of hip, right (HCC) Bilateral hip pain Status post hip surgery Tear of right acetabular labrum, initial encounter Procedures XR HIP GENERAL 3V PELV/AP/LAT RIGHT RADEX HIP UNILATERAL WITH PELVIS 2-3 VIEWS LeticiaOusmane, PA-C [address] [place] [address] Xr Imaging [facility]95 Referral ID Status Reason Start Date Expiration Date V isits Requested Visits Authorized [id number] Closed Auto-Generate d Referral 02/01/2024 11/02/2024 1 1 [facility] Chief Complaint and Reason for Visit Chief Complaint EORDERS- pain low back Reason for Visit HNP (herniated nucle us pulposus), lumbar Chief Complaint EORDERS- pain low back lumbar spine Osteonecrosis, unspecified,,rt hip Reason for Visit HNP (herniated nucle us pulposus), lumbar Osteonecrosis of both hips Chief Complaint Admit Date FASTING September 17, 2024 3:08p m Advance Directives No Advanced Directives Records Found Advance Directive Response Recorded Date/ Time Living Will No April 26 021 5:06pm Power of Civil Service Clerk No April 26, 2021 5:06pm Reason for Referral Specialty Diagnoses / Procedures Referred By Thomas malone Referred To Contact Diagnoses Avascular necrosis of bone of hip, right (HCC) Bilateral hip pain Status post hip surgery Pre-op testing Tear of right acetabular labrum, initial encounter Procedures REFER TO PACC - PRE ANESTHESIA CONSULTATION CLINIC OFFICE/OUTPATIENT [facility] 60 MINUTES Ousmane Kelly PA-C [address] [place] [address] Referral ID Status Reason Start Date Expiration Date Visits Requested Visits Authorized [id number] Authorized PCP Requested Referral 10/04/2023 10/03/2024 1 1 Specialty Diagnoses / Procedures Referred By Thomas malone Referred To [facility] Diagnoses Avascular necrosis of bone of hip, right (HCC) Bilateral hip pain Status post hip surgery Pre-op testing Tear of right acetabular labrum, initial encounter Procedures ECG COMPLETE ECG ROUTINE ECG W/LEAST 12 LDS W/I&R Ousmane Kelly PA-C [address] [place] [address] [facility] [place] [address] [place] [address] Referral ID Status Reason Start Date Expiration Date Visits Requested Visits Authorized [id number] Pending Review Auto-Generat ed Referral 11/29/2023 10/03/2024 1 1 Specialty Diagnoses / Procedures Referred By Thomas malone Referred To Contact XR IMAGING Diagnoses Avascular necrosis of bone of hip, right (HCC) Bilateral hip pain Status post hip surgery Tear of right acetabular labrum, initial encounter Procedures XR HIP GENERAL 3V PELV/AP/LAT RIGHT RADEX HIP UNILATERAL WITH PELVIS 2-3 VIEWS Ousmane Kelly PA-C [address] [place] [phone] Xr Imaging [facility]95 Referral ID Status Reason Start Date Expiration Date Visits Requested Visits Authorized [id number] Pending Review Auto-Generat ed Referral 02/01/2024 11/02/2024 1 1 Specialty Diagnoses / Procedures Referred By Thomas malone Referred To Contact XR IMAGING Diagnoses Avascular necrosis of bone of hip, right (HCC) Bilateral hip pain Status post hip surgery Pre-op testing Tear of right acetabular labrum, initial encounter Procedures XR HIP GENERAL 3V PELV/AP/LAT RIGHT RADEX HIP UNILATERAL WITH PELVIS 2-3 VIEWS Ousmane Kelly PA-C [address] [place] [phone] Xr Imaging [facility]95 Referral ID Status Reason Start Date Expiration Date Visits Requested Visits Authorized [id number] Pending Review Auto-Generat ed Referral 11/29/2023 11/02/2024 1 1 Specialty Diagnoses / Procedures Referred By Thomas t Referred To Contact XR IMAGING Diagnoses Avascular necrosis of bone of hip, right (HCC) Bilateral hip pain Status post hip surgery Pre-op testing Tear of right acetabular labrum, initial encounter Procedures XR LEG FRONTAL HIP TO ANKLE MECHANICAL AXIS BONE LENGTH STUDIES Ousmane Kelly PA-C [address] [place] [address] Xr Imaging [place] [address] Referral ID Status Reason Start Date Expiration Date Visits Requested Visits Authorized [id number] Pending Review Auto-Generat ed Referral 11/29/2023 11/02/2024 1 1 Summary Purpose Family History No Family History Records FoundNo Family History Records FoundNo Family History Records FoundNo Family History Records Found Additional Source Comments Care Teams (unrecognized sec tion and content) Team Status: Active Member Role Status Dates Dr. Phi Domínguez MD Family Provider Active Dr. Carine Moreno DO Primary Care Provider Active Team Status: Inactive Member Role Status Dates Dr. Carine Moreno DO Primary Care Provider, Referring P rovider Active Dr. Doyle Urbina DO Attending Provider Active Team Status: Inactive Member Role Status Dates Dr. Carine Moreno DO Primary Care Provider Active Dr. Doyle Urbina DO Attending Provider, Referring P rovider Active Research Chief Engineer Relationship Specialty Start Date End Date Carine Moreno DO [address] [facility] [place] [address] PCP - General Family Medicine 06/07/23 Research Chief Engineer Relationship Specialty Start Date End Date Carine Moreno DO [address] [place] [address] PCP - General Family Medicine 06/07/23 Research Chief Engineer Relationship Specialty Start Date End Date Carine Moreno DO [address] [place] [address] PCP - General Family Medicine 06/07/23 Research Chief Engineer Relationship Specialty Start Date End Date Carine Moreno DO [address] [place] [address] PCP - General Family Medicine 06/07/23 Research Chief Engineer Relationship Specialty Start Date End Date Carine Moreno DO [address] [place] [address] PCP - General Family Medicine 06/07/23 Research Chief Engineer Relationship Specialty Start Date End Date Carine Moreno DO [address] [place] [address] PCP - General Family Medicine 06/07/23 Research Chief Engineer Relationship Specialty Start Date End Date Carine Moreno DO [address] [place] [address] PCP - General Family Medicine 06/07/23 Research Chief Engineer Relationship Specialty Start Date End Date Carine Moreno DO [address] [place] [address] PCP - General Family Medicine 06/07/23 Research Chief Engineer Relationship Specialty Start Date End Date Carine Moreno DO [address] [place] [address] PCP - General Family Medicine 06/07/23 Research Chief Engineer Relationship Specialty Start Date End Date Carine Moreno DO [address] [place] [address] PCP - General Family Medicine 06/07/23 Research Chief Engineer Relationship Specialty Start Date End Date Josh Carine Meehan DO [address] [place] [address] PCP - General Family Medicine 06/07/23 Research Chief Engineer Relationship Specialty Start Date End Date Carine Moreno DO [address] [place] [address] PCP - General Family Medicine 06/07/23 Research Chief Engineer Relationship Specialty Start Date End Date Carine Moreno DO [address] [place] [address] PCP - General Family Medicine 06/07/23 Research Chief Engineer Relationship Specialty Start Date End Date Carine Moreno DO [address] [place], [place] [id number] PCP - General Family Medicine 06/07/23 Research Chief Engineer Relationship Specialty Start Date End Date Carine Moreno DO [address] [place], [place] [address] PCP - General Family Medicine 06/07/23 Team Status: Inactive Member Role Status Dates Dr. Carine Moreno DO Primary Care Provider Active Start: September 17, 2024 End: September 17, 2024 Dr. Benigno Zaragoza DO Attending Provider Active Start: September 17, 2024 End: September 17, 2024 Dr. Benigno Zaragoza DO Referring Provider Active Start: September 17, 2024 End: September 17, 2024 Goals (unrecognized section and content) Goals may be documented in a n alternate sectionGoals may be documented in an alternate sectionGoals may be documented in an alternate section Source Comments (unrecognize d section and content) In the event this informatio n is protected by the Federal Confidentiality of Alcohol and Drug Abuse Patient Records regulations: The Federal rules restrict any use of the information to criminally investigate or prosecute any alcohol or drug abuse patient.[facility] HospitalIn the event this information is protected by the Federal Confidentiality of Alcohol and Drug Abuse Patient Records regulations: The Federal rules restrict any use of the information to criminally investigate or prosecute any alcohol or drug abuse patient.[facility] HospitalIn the event this information is protected by the Federal Confidentiality of Alcohol and Drug Abuse Patient Records regulations: The Federal rules restrict any use of the information to criminally investigate or prosecute any alcohol or drug abuse patient.[facility] HospitalIn the event this information is protected by the Federal Confidentiality of Alcohol and Drug Abuse Patient Records regulations: The Federal rules restrict any use of the information to criminally investigate or prosecute any alcohol or drug abuse patient.[facility] HospitalIn the event this information is protected by the Federal Confidentiality of Alcohol and Drug Abuse Patient Records regulations: The Federal rules restrict any use of the information to criminally investigate or prosecute any alcohol or drug abuse patient.[facility] HospitalIn the event this information is protected by the Federal Confidentiality of Alcohol and Drug Abuse Patient Records regulations: The Federal rules restrict any use of the information to criminally investigate or prosecute any alcohol or drug abuse patient.[facility] HospitalIn the event this information is protected by the Federal Confidentiality of Alcohol and Drug Abuse Patient Records regulations: The Federal rules restrict any use of the information to criminally investigate or prosecute any alcohol or drug abuse patient.[facility] HospitalIn the event this information is protected by the Federal Confidentiality of Alcohol and Drug Abuse Patient Records regulations: The Federal rules restrict any use of the information to criminally investigate or prosecute any alcohol or drug abuse patient.[facility] HospitalIn the event this information is protected by the Federal Confidentiality of Alcohol and Drug Abuse Patient Records regulations: The Federal rules restrict any use of the information to criminally investigate or prosecute any alcohol or drug abuse patient.[facility] HospitalIn the event this information is protected by the Federal Confidentiality of Alcohol and Drug Abuse Patient Records regulations: The Federal rules restrict any use of the information to criminally investigate or prosecute any alcohol or drug abuse patient.[facility] HospitalIn the event this information is protected by the Federal Confidentiality of Alcohol and Drug Abuse Patient Records regulations: The Federal rules restrict any use of the information to criminally investigate or prosecute any alcohol or drug abuse patient.[facility] HospitalIn the event this information is protected by the Federal Confidentiality of Alcohol and Drug Abuse Patient Records regulations: The Federal rules restrict any use of the information to criminally investigate or prosecute any alcohol or drug abuse patient.[facility] HospitalIn the event this information is protected by the Federal Confidentiality of Alcohol and Drug Abuse Patient Records regulations: The Federal rules restrict any use of the information to criminally investigate or prosecute any alcohol or drug abuse patient.[facility] HospitalIn the event this information is protected by the Federal Confidentiality of Alcohol and Drug Abuse Patient Records regulations: The Federal rules restrict any use of the information to criminally investigate or prosecute any alcohol or drug abuse patient.[facility] HospitalIn the event this information is protected by the Federal Confidentiality of Alcohol and Drug Abuse Patient Records regulations: The Federal rules restrict any use of the information to criminally investigate or prosecute any alcohol or drug abuse patient.[facility] HospitalIn the event this information is protected by the Federal Confidentiality of Alcohol and Drug Abuse Patient Records regulations: The Federal rules restrict any use of the information to criminally investigate or prosecute any alcohol or drug abuse patient.[facility] HospitalIn the event this information is protected by the Federal Confidentiality of Alcohol and Drug Abuse Patient Records regulations: The Federal rules restrict any use of the information to criminally investigate or prosecute any alcohol or drug abuse patient.[facility] Reason for Visit (unrecogniz ed section and content) Reason Comments Anesthesia Consult Reason Comments Post Op Reason Comments Pain Reason Comments Post Op post op DOS 8/16RT H IP2wks (unrecognized sect ion and content) No Status Records FoundNo Status Records FoundNo Status Records FoundNo Status Records Found INFORMATION SOURCE (unrecogn ized section and content) DATE CREATED AUTHOR 10/05/2023 [facility] DATE CREATED AUTHOR AUTHOR'S ORGANIZ ATION 12/13/2023 [facility] DATE CREATED AUTHOR AUTHOR'S ORGANIZ ATION 12/27/2023 [facility] DATE CREATED AUTHOR AUTHOR'S ORGANIZ ATION 10/09/2024 [facility] FOR RECORDS PERTAINING TO PATIENTS WHO ARE OR HAVE BEEN ENROLLED IN A CHEMICAL DEPENDENCY/SUBSTANCEABUSE PROGRAM, SOME INFORMATION MAY BE OMITTED. This clinical summary was aggregated from multiple sources. Caution should be exercised in using it in the provision of clinical care. This summary normalizes information from multiple sources, and as a consequence, information in this document may materially change the coding, format and clinical context of patient data. In addition, data may be omitted in some cases. CLINICAL DECISIONS SHOULD BE BASED ON THE PRIMARY CLINICAL RECORDS. [facility]. provides no warranty or guarantee of the accuracy or completeness of information in this document.
--- NOTE | 2024-10-12 08:00 | US_ITS ---
PROCEDURE: ABDOMEN LIMITED 10/12/2024 REASON FOR EXAM: RUQ PAIN TECHNIQUE: Complete abdominal ultrasound orozco-scale images with color doppler. PATIENT PREPARATION: Per protocol COMPARISON: None. FINDINGS: Limited evaluation secondary to bowel gas. Liver: 15.2 cm. Increased hepatic echogenicity suggestive of hepatic steatosis. Unremarkable flow in the portal vein. Gallbladder: No evidence of cholelithiasis or acute cholecystitis. The gallbladder measures 7.1 cm in its length. Negative sonographic Garcia. No evidence of pericholecystic free fluid. Normal gallbladder wall thickness measuring 1.5 mm. Common bile duct: 2.5 mm. Pancreas: Unremarkable. Limited evaluation of the pancreas secondary to overlying bowel gas. Kidneys: The right kidney measures 9.5 x 6.2 x 5.9 cm. Normal right renal cortical thickness measuring 1.3 cm. Peritoneal Findings: No free fluid is noted. US/Abdomen Limited IMPRESSION: Hepatic steatosis. Normal gallbladder. Reading Location[facility] [address]
== END | disposition home or self-care (01) ==
LOC: US 07:43
PROVIDERS: PCP Family Medicine; Referring Provider Family Medicine; Visit Provider Family Medicine
DX: R10.11 Right upper quadrant pain (principal)
CPT/HCPCS: 76705